=== PATIENT | male | born 1960 | race Caucasian/White ===

== ENCOUNTER 2017-12-17 16:24 | Inpatient (IN) | payer MEDICAID ==
[~2017-12-17] VITALS: Ht 185.4 cm; Wt 51.7 kg
[2017-12-17] MEDS ORDERED: IV NS 0.9% 1,000 ML BAG IV ONE (17:00)
[2017-12-17] MEDS ORDERED: LUBI24CA5 PO (17:05)
[2017-12-17] MEDS ORDERED: ASCO500T9 PO (17:05)
[2017-12-17] MEDS ORDERED: ATEN25TA PO (17:05)
[2017-12-17] MEDS ORDERED: MIRT15TA PO (17:05)
[2017-12-17] MEDS ORDERED: NA P133E RC (17:05)
[2017-12-17] MEDS ORDERED: MULT-447 PO (17:05)
[2017-12-17] MEDS ORDERED: LACT-96 PO (17:05)
[2017-12-17] MEDS ORDERED: OLAN2.5T3 PO (17:05)
[2017-12-17] MEDS ORDERED: FERR325T23 PO (17:05)
[2017-12-17] MEDS ORDERED: MAGN400O6 PO (17:05)
[2017-12-17] MEDS ORDERED: ACET-868 PO (17:05)
[2017-12-17] MEDS ORDERED: PANT40TA4 PO (17:05)
[2017-12-17] MEDS ORDERED: SENN-167 PO (17:05)
[2017-12-17] MEDS ORDERED: BISA10SU8 RC (17:05)
[2017-12-17] MEDS ORDERED: ACET-2605 PO (17:05)
[2017-12-17 17:12] LABS: CALCIUM, SERUM 10.2 mg/dL (8.5-10.1); CARBON DIOXIDE 24 mmol/L (21-32); CHLORIDE 120 mmol/L (98-107); CREATININE 1.6 mg/dL (0.6-1.3); GLUCOSE 136 mg/dL (74-106); POTASSIUM 3.4 mmol/L (3.5-5.1); SODIUM SERUM 154 mmol/L (136-145); UREA NITROGEN, BLOOD 28 mg/dL (7-18)
[2017-12-17 17:13] LABS: BASOPHILS # (AUTO) 0.1 /CMM (0.0-0.2); BASOPHILS % (AUTO) 0.5 % (0.0-2.0); EOSINOPHILS % (AUTO) 0.2 % (0.0-6.0); HEMATOCRIT 42 % (39-51); HEMOGLOBIN 13.3 g/dL (13.5-17.5); LYMPHOCYTES % (AUTO) 22.7 % (20.0-44.0); MEAN CORPUSCULAR HEMOGLOBIN 30 PG (26.0-33.0); MEAN CORPUSCULAR HGB CONC 32 g/dl (31.0-36.0); MEAN CORPUSCULAR VOLUME 93 fL (80-96); MONOCYTES # (AUTO) 0.8 /CMM (0.1-1.30); MONOCYTES % (AUTO) 4.5 % (2.0-12.0); NEUTROPHILS # (AUTO) 12.6 /CMM (1.8-8.9); NEUTROPHILS % (AUTO) 72.1 % (43.0-81.0); PLATELET COUNT (AUTO) 311 /CMM (150-450); RED BLOOD CELL COUNT(AUTO) 4.51 MIL/uL (4.5-6.0); WHITE BLOOD COUNT (AUTO) 17.5 K/uL (4.3-11.0)
[2017-12-17 17:15] LABS: INR 1.13 (0.87-1.13)
[2017-12-17 17:18] LABS: ALANINE AMINOTRANSFERASE 23 U/L (12-78); ALBUMIN 2.6 g/dL (3.4-5.0); ALKALINE PHOSPHATASE 97 U/L (46-116); ASPARTATE AMINOTRANSFERASE 31 U/L (15-37); BILIRUBIN,DIRECT 0.2 mg/dL (0.0-0.2); BILIRUBIN,TOTAL 0.5 mg/dL (0.2-1.0); TOTAL PROTEIN, SERUM 9.5 g/dL (6.4-8.2)
[2017-12-17 17:20] LABS: TROPONIN I < 0.017 ng/mL (0.00-0.056)
[2017-12-17] MEDS ORDERED: IV NS 0.9% 1,000 ML IV ONE (17:30)
[2017-12-17] MEDS ORDERED: PIPERACILLIN /TAZOBACTAM 3.375 G in IV D5W 50 ML IV ONE (17:30)
[2017-12-17] MEDS ORDERED: PIPERACILLIN /TAZOBACTAM 3.375 G VIAL IV ONE (17:37)
[2017-12-17] MEDS ORDERED: IV NS 0.9% 1,000 ML IV PRN (18:11)
[2017-12-17] MEDS ORDERED: ONDANSETRON HCL/PF 4 MG/2 ML VIAL IVP PRN (18:30)
[2017-12-17] MEDS ORDERED: BISACODYL SUPP (10 MG) 10 MG/SUPP.RECT SUPP.RECT RC PRN (18:30)
[2017-12-17] MEDS ORDERED: HYDROCODONE/APAP 5/325MG 1 EACH TABLET PO PRN (18:30)
[2017-12-17] MEDS ORDERED: MAGNESIUM HYDROXIDE 30 ML UDC PO PRN ×2 (18:30)
[2017-12-17] MEDS ORDERED: NA PHOS,M-B/NA PHOS,DI-BA 1 EA ENEMA RC PRN (18:30)
[2017-12-17] MEDS ORDERED: MISCELLANEOUS MED 1 EA EA PO PRN (18:30)
[2017-12-17] MEDS ORDERED: TEMAZEPAM 15 MG CAPSULE PO PRN (18:30)
[2017-12-17] MEDS ORDERED: MAG HYDROX/AL HYDROX/SIMETH 30 ML UDC PO PRN (18:30)
[2017-12-17] MEDS ORDERED: Z GUARD REMEDY 2 OZ OINT TP PRN (18:30)
[2017-12-17] MEDS ORDERED: ACETAMINOPHEN 325 MG TABLET PO PRN ×2 (18:30)
[2017-12-17 22:00] VITALS: BP 98/66
[2017-12-17] MEDS: MIRTAZAPINE 15 MG TABLET PO SCH (22:15)
[2017-12-17] MEDS: SENNOSIDES 8.6 MG TABLET PO SCH (22:15)
[2017-12-18] MEDS: PIPERACILLIN /TAZOBACTAM 3.375 G in IV D5W 50 ML IV SCH ×5 (00:50→23:39)
[2017-12-18 04:00] VITALS: BP 91/47
[2017-12-18 06:40] LABS: BASOPHILS % (AUTO) 0.2 % (0.0-2.0); EOSINOPHILS % (AUTO) 0.3 % (0.0-6.0); HEMATOCRIT 37 % (39-51); HEMOGLOBIN 11.7 g/dL (13.5-17.5); LYMPHOCYTES # (AUTO) 4.3 /CMM (0.8-4.8); LYMPHOCYTES % (AUTO) 25.5 % (20.0-44.0); MEAN CORPUSCULAR HEMOGLOBIN 30 PG (26.0-33.0); MEAN CORPUSCULAR HGB CONC 32 g/dl (31.0-36.0); MEAN CORPUSCULAR VOLUME 94 fL (80-96); MONOCYTES # (AUTO) 0.9 /CMM (0.1-1.30); MONOCYTES % (AUTO) 5.3 % (2.0-12.0); NEUTROPHILS # (AUTO) 11.5 /CMM (1.8-8.9); NEUTROPHILS % (AUTO) 68.7 % (43.0-81.0); PLATELET COUNT (AUTO) 198 /CMM (150-450); RDW COEFFICIENT OF VARIATION 20.2 (11.5-15.0); RED BLOOD CELL COUNT(AUTO) 3.92 MIL/uL (4.5-6.0); WHITE BLOOD COUNT (AUTO) 16.8 K/uL (4.3-11.0)
[2017-12-18 07:11] LABS: CALCIUM, SERUM 9.1 mg/dL (8.5-10.1); CREATININE 1.5 mg/dL (0.6-1.3); PHOSPHORUS 2.7 mg/dL (2.5-4.9); POTASSIUM 3.5 mmol/L (3.5-5.1)
[2017-12-18] MEDS ORDERED: PANTOPRAZOLE 40 MG TABLET.DR PO SCH (07:30)
[2017-12-18 08:00] VITALS: BP_SYST 104; BP_SYST 126; BP_DIAS 46; BP_DIAS 60
[2017-12-18] MEDS: FERROUS SULFATE (325 MG) 325 MG/TAB TABLET PO SCH (08:14)
[2017-12-18] MEDS: PANTOPRAZOLE 40 MG TABLET.DR PO SCH (08:14)
[2017-12-18] MEDS: OLANZAPINE 2.5 MG TABLET PO SCH ×2 (08:14→16:57)
[2017-12-18] MEDS: ASCORBIC ACID 500 MG TABLET PO SCH (08:14)
[2017-12-18] MEDS: MULTIVITAMINS,THERAGRAN 1 UDTAB TABLET PO SCH (08:14)
[2017-12-18] MEDS: ATENOLOL 25 MG TABLET PO SCH (09:31)
[2017-12-18] MEDS: ENSURE ENLIVE CHOC 237 ML CAN PO SCH ×2 (09:31→16:57)
[2017-12-18] MEDS: IV D5/0.45 NACL 1,000 ML IV PRN ×2 (10:05→19:52)
[2017-12-18 16:00] VITALS: BP 103/60
[2017-12-18 20:00] VITALS: BP 98/50
[2017-12-18] MEDS: SENNOSIDES 8.6 MG TABLET PO SCH (22:35)
[2017-12-18] MEDS: MIRTAZAPINE 15 MG TABLET PO SCH (22:35)
[2017-12-19 04:00] VITALS: BP 138/76
[2017-12-19] MEDS: IV D5/0.45 NACL 1,000 ML IV PRN ×2 (04:28→14:54)
[2017-12-19] MEDS: PIPERACILLIN /TAZOBACTAM 3.375 G in IV D5W 50 ML IV SCH ×3 (05:01→17:15)
[2017-12-19 08:00] VITALS: BP 91/55
[2017-12-19] MEDS: FERROUS SULFATE (325 MG) 325 MG/TAB TABLET PO SCH (08:28)
[2017-12-19] MEDS: MULTIVITAMINS,THERAGRAN 1 UDTAB TABLET PO SCH (08:28)
[2017-12-19] MEDS: ASCORBIC ACID 500 MG TABLET PO SCH (08:28)
[2017-12-19] MEDS: ATENOLOL 25 MG TABLET PO SCH (08:28)
[2017-12-19] MEDS: PANTOPRAZOLE 40 MG TABLET.DR PO SCH (08:28)
[2017-12-19] MEDS: OLANZAPINE 2.5 MG TABLET PO SCH ×2 (08:28→17:15)
[2017-12-19] MEDS: ENSURE ENLIVE CHOC 237 ML CAN PO SCH ×2 (08:29→17:16)
[2017-12-19 09:15] LABS: BASOPHILS # (AUTO) 0.1 /CMM (0.0-0.2); BASOPHILS % (AUTO) 0.4 % (0.0-2.0); EOSINOPHILS % (AUTO) 0.8 % (0.0-6.0); HEMATOCRIT 31 % (39-51); HEMOGLOBIN 9.9 g/dL (13.5-17.5); LYMPHOCYTES # (AUTO) 3.8 /CMM (0.8-4.8); LYMPHOCYTES % (AUTO) 29.5 % (20.0-44.0); MEAN CORPUSCULAR HEMOGLOBIN 30 PG (26.0-33.0); MEAN CORPUSCULAR HGB CONC 32 g/dl (31.0-36.0); MEAN CORPUSCULAR VOLUME 94 fL (80-96); NEUTROPHILS # (AUTO) 7.8 /CMM (1.8-8.9); NEUTROPHILS % (AUTO) 61.3 % (43.0-81.0); PLATELET COUNT (AUTO) 157 /CMM (150-450); RDW COEFFICIENT OF VARIATION 20.3 (11.5-15.0); RED BLOOD CELL COUNT(AUTO) 3.32 MIL/uL (4.5-6.0); WHITE BLOOD COUNT (AUTO) 12.7 K/uL (4.3-11.0)
[2017-12-19 09:26] LABS: CALCIUM, SERUM 8.2 mg/dL (8.5-10.1); CREATININE 1.5 mg/dL (0.6-1.3)
[2017-12-19] MEDS ORDERED: POTASSIUM CHLORIDE 20 MEQ POWDER PACKET PO ONE (13:30)
[2017-12-19 16:00] VITALS: BP 94/59
[2017-12-19 20:00] VITALS: BP 91/54
[2017-12-19] MEDS: SENNOSIDES 8.6 MG TABLET PO SCH (21:10)
[2017-12-19] MEDS: MIRTAZAPINE 15 MG TABLET PO SCH (21:10)
[2017-12-20] MEDS: PIPERACILLIN /TAZOBACTAM 3.375 G in IV D5W 50 ML IV SCH ×3 (00:25→13:06)
[2017-12-20] MEDS: IV D5/0.45 NACL 1,000 ML IV PRN ×2 (00:27→08:39)
[2017-12-20 04:00] VITALS: BP 92/55
[2017-12-20 06:28] LABS: BASOPHILS % (AUTO) 0.4 % (0.0-2.0); EOSINOPHILS % (AUTO) 4.8 % (0.0-6.0); HEMATOCRIT 31 % (39-51); HEMOGLOBIN 10.1 g/dL (13.5-17.5); LYMPHOCYTES # (AUTO) 2.5 /CMM (0.8-4.8); LYMPHOCYTES % (AUTO) 31.7 % (20.0-44.0); MEAN CORPUSCULAR HEMOGLOBIN 30 PG (26.0-33.0); MEAN CORPUSCULAR HGB CONC 33 g/dl (31.0-36.0); MEAN CORPUSCULAR VOLUME 93 fL (80-96); MONOCYTES # (AUTO) 0.6 /CMM (0.1-1.30); MONOCYTES % (AUTO) 7.4 % (2.0-12.0); NEUTROPHILS # (AUTO) 4.4 /CMM (1.8-8.9); NEUTROPHILS % (AUTO) 55.7 % (43.0-81.0); PLATELET COUNT (AUTO) 163 /CMM (150-450); RDW COEFFICIENT OF VARIATION 20.2 (11.5-15.0); RED BLOOD CELL COUNT(AUTO) 3.34 MIL/uL (4.5-6.0); WHITE BLOOD COUNT (AUTO) 7.9 K/uL (4.3-11.0)
[2017-12-20 06:31] LABS: CALCIUM, SERUM 8.4 mg/dL (8.5-10.1); CREATININE 1.2 mg/dL (0.6-1.3)
[2017-12-20 08:00] VITALS: BP 99/53
[2017-12-20] MEDS: ENSURE ENLIVE CHOC 237 ML CAN PO SCH ×2 (08:18→16:33)
[2017-12-20] MEDS: PANTOPRAZOLE 40 MG TABLET.DR PO SCH (08:18)
[2017-12-20 08:57] VITALS: BP 99/53
[2017-12-20] MEDS: ATENOLOL 25 MG TABLET PO SCH (08:57)
[2017-12-20] MEDS: ASCORBIC ACID 500 MG TABLET PO SCH (09:19)
[2017-12-20] MEDS: FERROUS SULFATE (325 MG) 325 MG/TAB TABLET PO SCH (09:19)
[2017-12-20] MEDS: OLANZAPINE 2.5 MG TABLET PO SCH ×2 (09:19→16:33)
[2017-12-20] MEDS: MULTIVITAMINS,THERAGRAN 1 UDTAB TABLET PO SCH (09:19)
[2017-12-20] MEDS ORDERED: POTASSIUM CHLORIDE 20 MEQ TAB.PRT.SR PO SCH (10:00)
[2017-12-20] MEDS: POTASSIUM CHLORIDE 20 MEQ POWDER PACKET PO SCH ×2 (11:02→12:27)
[2017-12-20] MEDS ORDERED: POTASSIUM CHLORIDE 20 MEQ POWDER PACKET PO SCH (14:00)
[2017-12-20] MEDS ORDERED: Potassium Chloride 40 MEQ in IV D5/0.45 NACL 1,000 ML IV PRN (17:00)
== END 2017-12-20 17:28 | DRG 137 ==
LOC: ER 16:31 → MEDSG1 19:26
PROVIDERS: ADMIT Nurse Practitioner Acute Care; ATTEND Nurse Practitioner Acute Care
DX: J15.6 Pneumonia due to other Gram-negative bacteria (principal); N17.0 Acute kidney failure with tubular necrosis; E43 Unspecified severe protein-calorie malnutrition; G93.41 Metabolic encephalopathy; R64 Cachexia; E87.0 Hyperosmolality and hypernatremia; E86.0 Dehydration; E86.1 Hypovolemia; J15.9 Unspecified bacterial pneumonia; I12.9 Hypertensive chronic kidney disease with stage 1 through stage 4 chronic kidney disease, or unspecified chronic kidney disease; N18.9 Chronic kidney disease, unspecified; E87.6 Hypokalemia; F20.0 Paranoid schizophrenia; F32.9 Major depressive disorder, single episode, unspecified; K58.9 Irritable bowel syndrome, unspecified; D64.9 Anemia, unspecified; Z87.01 Personal history of pneumonia (recurrent); Z68.1 Body mass index [BMI] 19.9 or less, adult; D72.829 Elevated white blood cell count, unspecified; F41.9 Anxiety disorder, unspecified; F29 Unspecified psychosis not due to a substance or known physiological condition; M62.50 Muscle wasting and atrophy, not elsewhere classified, unspecified site; J40 Bronchitis, not specified as acute or chronic; R63.6 Underweight
CPT/HCPCS: 36415; 71045-TC; 80048-TC; 80061-TC; 80076-TC; 83605-TC; 83735-TC; 84100-TC; 84484-TC; 85025-TC; 85730-TC; 87040-TC; 87081-TC; A4606; J2543; J3480; J3490; J7030; J7060; Z7610

== ENCOUNTER 2017-12-29 19:54 | Inpatient (IN) | payer MEDICAID ==
[2017-12-28 01:00] VITALS: BP 87/56
[~2017-12-29] VITALS: Ht 175.3 cm; Wt 50.8 kg
[~2017-12-29 19:54] MED LIST: ACET-2605 PO; ACET-868 PO; ASCO500T9 PO; ATEN25TA PO; BISA10SU8 RC; FERR325T23 PO; LACT-96 PO; LUBI24CA5 PO; MAGN400O6 PO; MIRT15TA PO; MULT-447 PO; NA P133E RC; OLAN2.5T3 PO; PANT40TA4 PO; SENN-167 PO
--- NOTE | 2017-12-29 19:54 | NUR ---
"D/C 2 DAYS FROM HERE; NOT EATING". NAD NOTED. PT AAO X2, VSS. RR EVEN AND UNLABORED. PENDING MD TYLER.
--- NOTE | 2017-12-29 21:08 | NUR ---
URINE OBTAINED CALLED LAB FOR PICKUP
[2017-12-29 21:16] LABS: BASOPHILS # (AUTO) 0.7 /CMM (0.0-0.2); BASOPHILS % (AUTO) 4.4 % (0.0-2.0); EOSINOPHILS % (AUTO) 1.7 % (0.0-6.0); HEMATOCRIT 38 % (39-51); HEMOGLOBIN 12.9 g/dL (13.5-17.5); LYMPHOCYTES # (AUTO) 4.3 /CMM (0.8-4.8); LYMPHOCYTES % (AUTO) 26.3 % (20.0-44.0); MEAN CORPUSCULAR HEMOGLOBIN 31 PG (26.0-33.0); MEAN CORPUSCULAR HGB CONC 34 g/dl (31.0-36.0); MEAN CORPUSCULAR VOLUME 90 fL (80-96); MONOCYTES # (AUTO) 0.5 /CMM (0.1-1.30); MONOCYTES % (AUTO) 3.3 % (2.0-12.0); NEUTROPHILS # (AUTO) 10.6 /CMM (1.8-8.9); NEUTROPHILS % (AUTO) 64.3 % (43.0-81.0); PLATELET COUNT (AUTO) 527 /CMM (150-450); RDW COEFFICIENT OF VARIATION 19.4 (11.5-15.0); RED BLOOD CELL COUNT(AUTO) 4.21 MIL/uL (4.5-6.0); WHITE BLOOD COUNT (AUTO) 16.4 K/uL (4.3-11.0)
[2017-12-29 21:17] LABS: APPEARANCE,URINE Slightly Cloudy (CLEAR); BILIRUBIN,URINE Negative (NEGATIVE); BLOOD, URINE Moderate Ery/uL (NEGATIVE); COLOR,URINE Yellow (YELLOW); KETONES,URINE Negative (NEGATIVE); LEUKOCYTE ESTERASE ,URINE Large (NEGATIVE); NITRITE, URINE Negative (NEGATIVE); PROTEIN,URINE 100 mg/dl (NEGATIVE); UGLUCOSE Negative (NEGATIVE); UROBILINOGEN,URINE 0.2 EU/dL (0.2)
[2017-12-29 21:39] LABS: ALBUMIN 2.8 g/dL (3.4-5.0); BILIRUBIN,DIRECT 0.1 mg/dL (0.0-0.2); BILIRUBIN,TOTAL 0.3 mg/dL (0.2-1.0); CALCIUM, SERUM 9.9 mg/dL (8.5-10.1); CREATININE 1.1 mg/dL (0.6-1.3); POTASSIUM 3.5 mmol/L (3.5-5.1); TOTAL PROTEIN, SERUM 9.5 g/dL (6.4-8.2)
[2017-12-29 21:54] LABS: BACTERIA,URINE Many /HPF (None Seen); RBC,URINE 21-50 /HPF (0-2); SQUAMOUS EPITHELIAL CELL,UR Few /HPF (None Seen); URINE AMORPHOUS URATE Few /HPF (None Seen); WBC,URINE TOO NUMEROUS TO COUN /HPF (0-3)
[2017-12-29] MEDS ORDERED: IV NS 0.9% 1,000 ML BAG IV ONE (22:30)
[2017-12-29] MEDS ORDERED: CEFTRIAXONE 1GM BAG (ER ONLY) 50 ML IV ONE (22:30)
[2017-12-30] MEDS ORDERED: IV NS 0.9% 1,000 ML BAG IV ONE
[2017-12-30] MEDS ORDERED: MAG HYDROX/AL HYDROX/SIMETH 30 ML UDC PO PRN (00:30)
[2017-12-30] MEDS ORDERED: HYDROCODONE/APAP 5/325MG 1 EACH TABLET PO PRN (00:30)
[2017-12-30] MEDS ORDERED: ZOLPIDEM TARTRATE 5 MG TABLET PO PRN (00:30)
[2017-12-30] MEDS ORDERED: ONDANSETRON HCL/PF 4 MG/2 ML VIAL IVP PRN (00:30)
[2017-12-30] MEDS ORDERED: MAGNESIUM HYDROXIDE 30 ML UDC PO PRN (00:30)
[2017-12-30] MEDS ORDERED: Z GUARD REMEDY 2 OZ OINT TP PRN (00:30)
[2017-12-30] MEDS ORDERED: ACETAMINOPHEN 325 MG TABLET PO PRN (00:30)
--- NOTE | 2017-12-30 00:40 | NUR ---
REPORT GIVEN TO ENRICO LUA FOR AMEYA
--- NOTE | 2017-12-30 01:28 | NUR ---
TELE TRANSVERSE ABDOMINAL MUSCLE SURGEON INITIAL NOTES ADMIT PT FROM ER VIA JOSERBRANT ACCOMPANIED BY SAMPLE PASTER AND HIS NURSE. PT STILL NS BOLUS INFUSING AT THIS TIME. PT IS ALERT ORIENTED NO SIGNS OF ANY DISCOMFORT OR ANY ACUTE DISTRESS NOTED. SKIN WARM AND DRY TO TOUCH. VITAL SIGNS FF. BP 87/56, RESP 16, PULSE 102 O2 SAT 96% AND TEMP 98.1. RE-ORIENTED PT IN HIS ROOM AND HOW TO USED THE CALL LIGHT SYSTEM AND PT UNDERSTOOD WELL. TELE SINUS RHYTHM HEART RATE 85 PER MONITOR.KEPT HIM WARM AND COMFORTABLE AT ALL TIMES. PLACE CALL LIGHT AT REACH. WILL CONTINUE MONITORING.
[2017-12-30] MEDS: IV D5/ 0.9% NACL 1,000 ML IV PRN ×2 (02:41→18:42)
[2017-12-30] MEDS ORDERED: VANCOMYCIN 1 GM VIAL ONE (02:45)
[2017-12-30] MEDS ORDERED: ENOXAPARIN SODIUM 40 MG/0.4 ML DISP.SYRIN SQ ONE ×2 (02:45→04:00)
[2017-12-30] MEDS ORDERED: PIPERACILLIN /TAZOBACTAM 2.25 G VIAL IV ONE (02:45)
[2017-12-30 04:00] VITALS: BP 86/54
[2017-12-30] MEDS ORDERED: VANCOMYCIN 1 GM in IV D5W 250 ML IV ONE (04:00)
[2017-12-30 05:00] VITALS: BP 90/60
[2017-12-30] MEDS: PIPERACILLIN /TAZOBACTAM 4.5 G in IV NS 0.9% 50 ML IV SCH ×3 (05:16→17:07)
[2017-12-30] MEDS ORDERED: FEE PK DOSING 1 MIN EA MC ONE (07:55)
[2017-12-30 08:00] VITALS: BP 97/56
--- NOTE | 2017-12-30 08:00 | NUR ---
MS RN AM NOTES PT ALERT AND CONFUSED. STILL WITH IVF D5NS AT 100ML/HR INFUSING WELL. BREATHING EVEN AND NON-LABORED ON ROOM AIR. NOT IN ANY ACUTE DISTRESS NOTED. KEPT HIM WARM AND COMFORTABLE AT ALL TIMES. ALL DUE MEDS GIVEN AND NEEDS ATTENDED.ATTEMPTED ORAL CARE BUT PT REFUSED.Z-GUARD APPLIED TO AFFECTED AREA.
--- NOTE | 2017-12-30 08:03 | NUR ---
MS CLINICAL SAFETY SPECIALIST CLOSING NOTES PT RESTING AT THIS TIME, STILL WITH IVF D5NS AT 100ML/HR. BREATHING EVEN AND NON-LABORED. NOT IN ANY ACUTE DISTRESS NOTED. KEPT HIM WARM AND COMFORTABLE AT ALL TIMES. ALL DUE MEDS GIVEN AND ALL NEEDS MET. STABLE SINCE ADMISSION. REFUSED TO CLEANED HIS MOUTH BUT SPONGES BATH RENDERED AND Z-GUARD APPLIED TO AFFECTED AREA. ENDORSE TO AM NURSE FOR CONTINUITY OF CARE.
[2017-12-30] MEDS: OLANZAPINE 2.5 MG TABLET PO SCH ×2 (09:26→16:56)
--- NOTE | 2017-12-30 12:55 | NUR ---
CALLED [facility] FOR DELIVERY OF THE ENSURE NOURISHMENT.
[2017-12-30] MEDS: ENSURE ENLIVE CHOC 237 ML CAN PO SCH ×3 (13:19→22:01)
[2017-12-30] MEDS: VANCOMYCIN 0.75 GM in IV D5W 250 ML IV SCH (15:01)
--- NOTE | 2017-12-30 15:30 | NUR ---
PT CONSUMED 237 ML OF CHOCOLATE ENSURE/BOOST.
[2017-12-30 16:00] VITALS: BP 99/61
--- NOTE | 2017-12-30 17:16 | NUR ---
PT CONSUMED 150 ML OF HIS ENSURE HARPREET NOURISHMENT.
--- NOTE | 2017-12-30 18:03 | NUR ---
Patient is a resident of [facility] [phone]. He is alert,require min-mod assist with adl's. Has no family or conservator, Reports with failure to thrive and lost 20lbs in 4 weeks and has not been eating. He might need PEG placement and will need 2 MD consent for consent. Addendum: 12/30/17 at 1804 by NIRAV GALLOWAY RN Amended: Links added.
--- NOTE | 2017-12-30 19:30 | NUR ---
MS/RN RECEIVE PATIENT AWAKE, ALERT, ORIENTED X 2 COMFORTABLE, NO C/O PAIN, NO DISTRESS NOTED, IVF INFUSING WELL, CALL LIGHT IN REACH. FALL PRECAUTIE Addendum: 12/30/17 at 1951 by KB LUCERO RN FALL PRECAUTION PER PROTOCOL, WILL MONITOR.
[2017-12-30 20:00] VITALS: BP 96/53
[2017-12-30] MEDS: ENOXAPARIN SODIUM 40 MG/0.4 ML DISP.SYRIN SQ SCH (21:52)
[2017-12-30] MEDS: MIRTAZAPINE 15 MG TABLET PO SCH (21:52)
--- NOTE | 2017-12-30 22:08 | NUR ---
MS/RN LACTIC ACID LAST NIGHT WAS 3.0 AT 2100, REPEAT LACTIC ACID AT 2300 WAS 4.4, NO F/U LACTIC ACID DONE, PATIENT IS CURRENTLY ON IV FLUID NS AT 100 MLS/HR, AND ON VANCOMYCIN AND ZOSYN, DR. ELISHA MANDEL MADE AWARE, PER DR. TELLO "IT'S OK". NO ORDERS RECEIVED.
[2017-12-31] MEDS: PIPERACILLIN /TAZOBACTAM 4.5 G in IV NS 0.9% 50 ML IV SCH ×5 (00:14→23:48)
[2017-12-31] MEDS: VANCOMYCIN 0.75 GM in IV D5W 250 ML IV SCH (03:34)
[2017-12-31] MEDS: IV D5/ 0.9% NACL 1,000 ML IV PRN ×4 (03:40→20:55)
[2017-12-31 07:11] LABS: BASOPHILS # (AUTO) 0.1 /CMM (0.0-0.2); BASOPHILS % (AUTO) 1.3 % (0.0-2.0); EOSINOPHILS % (AUTO) 5.4 % (0.0-6.0); HEMATOCRIT 32 % (39-51); HEMOGLOBIN 10.3 g/dL (13.5-17.5); LYMPHOCYTES # (AUTO) 3.9 /CMM (0.8-4.8); LYMPHOCYTES % (AUTO) 39.6 % (20.0-44.0); MEAN CORPUSCULAR HEMOGLOBIN 31 PG (26.0-33.0); MEAN CORPUSCULAR HGB CONC 33 g/dl (31.0-36.0); MEAN CORPUSCULAR VOLUME 94 fL (80-96); MONOCYTES # (AUTO) 0.7 /CMM (0.1-1.30); MONOCYTES % (AUTO) 6.8 % (2.0-12.0); NEUTROPHILS # (AUTO) 4.7 /CMM (1.8-8.9); NEUTROPHILS % (AUTO) 46.9 % (43.0-81.0); PLATELET COUNT (AUTO) 342 /CMM (150-450); RED BLOOD CELL COUNT(AUTO) 3.38 MIL/uL (4.5-6.0); WHITE BLOOD COUNT (AUTO) 9.9 K/uL (4.3-11.0)
[2017-12-31 07:27] LABS: CALCIUM, SERUM 8.4 mg/dL (8.5-10.1); CREATININE 0.9 mg/dL (0.6-1.3); PHOSPHORUS 1.6 mg/dL (2.5-4.9); POTASSIUM 3.4 mmol/L (3.5-5.1)
[2017-12-31 07:37] LABS: THYROID STIMULATING HORMONE 4.763 uIU/mL (0.358-3.74)
--- NOTE | 2017-12-31 07:37 | NUR ---
MS/RN PATIENT AWAKE AT THIS TIME, COMFORTABLE, NO DISTRESS NOTED, ALL NEEDS ATTENDED AT THIS TIME, IVF INFUSING, ENDORSED TO NEXT RN FOR CONTINUITY OF CARE.
--- NOTE | 2017-12-31 07:44 | NUR ---
MS RN NOTES PATIENT RECEIVED RESTING INSIDE ROOM. SLEEPING, AROUSABLE THROUGH VERBAL AND TACTILE STIMULI. PATIENT ALERT, ORIENTED X 2. BREATHING EVEN AND UNLABORED. NO SOB OR ACUTE DISTRESS NOTED AT THIS TIME. DENIES ANY PAIN OR DISCOMFORT. NO CHANGES IN LOC NOTED AT THIS TIME. IV SITE INTACT AND PATENT. NO SWELLING OR BLEEDING NOTED ON SITE. WILL CONTINUE TO MONITOR. BED LOCKED AND IN LOW POSITION. BILATERAL UPPER SIDE RAILS UP AND LOCKED. CALL LIGHT WITHIN EASY REACH
[2017-12-31] MEDS: OLANZAPINE 2.5 MG TABLET PO SCH ×2 (08:25→17:11)
[2017-12-31] MEDS: ENSURE ENLIVE CHOC 237 ML CAN PO SCH ×4 (08:25→22:16)
[2017-12-31 08:54] VITALS: BP 106/59
--- NOTE | 2017-12-31 09:30 | NUR ---
MS RN NOTES RECEIVED CALL FROM DR. YARBROUGH (GI) REGARDING PATIENT FOR EGD WITH PEG PLACEMENT. DR. YARBROUGH AWARE THAT PATIENT DOES NOT HAVE CONSERVATOR AND REQUIRES 2 PCP SIGNATURES FOR PROCEDURE CONSENT. WILL CONTINUE TO MONITOR
--- NOTE | 2017-12-31 09:49 | NUR ---
WOUND CARE CONSULT: PT PRESENTS WITH CACHEXIA, SCARS TO LEFT LEG AND BILATERAL HIPS, AND RASH TO PERINEUM, GROIN AREAS AND PERIANAL AREA/BUTTOCKS, PRESENT ON ADMISSION. RECOMMENDATIONS MADE FOR SKIN PROTECTION. DISCUSSED WITH NURSING STAFF. PT ABLE TO ASSIST WITH TURNING AND REPOSITIONING. WILL SEE PRN. FRANK IN AGREEMENT WITH PLAN OF CARE. Addendum: 12/31/17 at 0940 by KAREEM STEPHENS WNDNU Amended: Links added.
--- NOTE | 2017-12-31 10:15 | NUR ---
MS RN NOTES BENNY TOBAR NP PRESENT AT UNIT. MADE AWARE REGARDING PROCEDURE FOR EGD WITH PEG PLACEMENT. PER BENNY TOBAR, TO FOLLOW-UP WITH DR. SONG REGARDING CONSULTATION NOTES FOR PROCEDURE. DR. SONG PRESENT AT UNIT AND MADE AWARE. VERBALIZED THAT HE WILL COME AND SEE PATIENT TODAY. WILL CONTINUE TO MONITOR
[2017-12-31] MEDS ORDERED: K PHOS NEUTRAL 250 MG TABLET PO ONE (11:30)
[2017-12-31] MEDS ORDERED: POTASSIUM CHLORIDE 20 MEQ TAB.PRT.SR PO SCH (12:30)
--- NOTE | 2017-12-31 15:30 | NUR ---
MS RN NOTES G.I. BOOM CONVEYOR OPERATOR PRESENT AT UNIT. DISCUSSED CASE REGARDING EGD WITH PEG PLACEMENT. INFORMED THAT DR. SONG IS AWARE AND WILL SEE PATIENT. PER Ash. BOOM CONVEYOR OPERATOR, MAY RESUME FEEDING AT THIS TIME. POSSIBLE EGD SCHEDULE IN AM.
[2017-12-31 16:00] VITALS: BP 95/55
[2017-12-31] MEDS: CLOTRIMAZOLE 1% 15 GM TUBE TP SCH (17:10)
[2017-12-31 18:30] LABS: PREALBUMIN 10.4 MG/DL (18.0-35.7)
--- NOTE | 2017-12-31 18:56 | NUR ---
MS RN NOTES PATIENT RESTING INSIDE ROOM. AWAKE, ALERT AND ORIENTED X 2. VERBALLY RESPONSIVE AND RESPONDS TO VERBAL AND TACTILE STIMULI. BREATHING EVEN AND UNLABORED. NO SOB OR ACUTE DISTRESS NOTED AT THIS TIME. PATIENT AFEBRILE, SKIN DRY AND WARM TO TOUCH. NO CHANGES IN LOC NOTED AT THIS TIME. IV SITE INTACT AND PATENT. NO SWELLING OR BLEEDING NOTED AT THIS TIME. WILL ENDORSE TO INCOMING SHIFT FOR AMEYA. BED LOCKED AND IN LOW POSITION. BILATERAL UPPER SIDE RAILS UP AND LOCKED. CALL LIGHT WITHIN EASY REACH
--- NOTE | 2017-12-31 19:30 | NUR ---
MS/RN RECEIVE PATIENT AWAKE, BUT SLEEPY, COMFORTABLE, NO C//O PAIN, NO DISTRESS NOTED, CALL LIGHT IN REACH. FALL PRECAUTION, WILL MONITOR.
[2017-12-31 19:54] LABS: BILIRUBIN,DIRECT 0.1 mg/dL (0.0-0.2); BILIRUBIN,TOTAL 0.3 mg/dL (0.2-1.0)
[2017-12-31 20:00] VITALS: BP 98/63
[2017-12-31] MEDS: ENOXAPARIN SODIUM 40 MG/0.4 ML DISP.SYRIN SQ SCH (21:00)
[2017-12-31] MEDS: MIRTAZAPINE 15 MG TABLET PO SCH (22:15)
--- NOTE | 2017-12-31 22:24 | NUR ---
MS/RN GENESISNOX NOT GIVEN FOR POSSIBLE, EGD/PEG PLACEMENT IN A.M.
--- NOTE | 2017-12-31 23:16 | NUR ---
MS/RN PATIENT IS SLEEPING AT THIS TIME, EASILY AROUSABLE, APPEAR COMFORTABLE, NO SIGNS OF DISTRESS NOTED, CALL LIGHT IN REACH. WILL CONTINUE TO MONITOR.
--- NOTE | 2017-12-31 23:54 | NUR ---
MS/RN SCANNER DOES NOT SCAN ZOSYN, VERIFIED CORRECT MED WITH PETTY HERNANDEZ RN, ADMINISTERED MED USING PHARMACY NO.
[2018-01-01] MEDS: PIPERACILLIN /TAZOBACTAM 4.5 G in IV NS 0.9% 50 ML IV SCH ×3 (05:52→17:01)
[2018-01-01] MEDS: IV D5/ 0.9% NACL 1,000 ML IV PRN ×2 (05:52→21:27)
--- NOTE | 2018-01-01 06:21 | NUR ---
MS/RN PATIENT IS AWAKE, COMFORTABLE, NO C/O PAIN, NO DISTRESS NOTED, MORNING CARE HAS BEEN DONE. ALL NEEDS ATTENDED AT THIS TIME, WILL CONTINUE TO MONITOR.
--- NOTE | 2018-01-01 07:41 | NUR ---
MS RN NOTES PATIENT RESTING INSIDE ROOM. AWAKE, ALERT AND ORIENTED X 2. VERBALLY RESPONSIVE AND RESPONDS TO VERBAL AND TACTILE STIMULI. BREATHING EVEN AND UNLABORED. NO SOB OR ACUTE DISTRESS NOTED AT THIS TIME. NO CHANGES IN LOC NOTED AT THIS TIME. PATIENT CALM AND RELAXED. PATIENT AFEBRILE, SKIN DRY AND WARM TO TOUCH. IV SITE INTACT AND PATENT, NO SWELLING OR BLEEDING NOTED ON SITE. WILL CONTINUE TO MONITOR. BED LOCKED AND IN LOW POSITION. BILATERAL UPPER SIDE RAILS UP AND LOCKED. CALL LIGHT WITHIN EASY REACH
[2018-01-01 08:00] VITALS: BP 100/63
[2018-01-01] MEDS: CLOTRIMAZOLE 1% 15 GM TUBE TP SCH ×2 (08:33→17:00)
[2018-01-01] MEDS: OLANZAPINE 2.5 MG TABLET PO SCH ×2 (09:00→17:00)
[2018-01-01] MEDS: ENSURE ENLIVE CHOC 237 ML CAN PO SCH ×4 (09:00→20:29)
--- NOTE | 2018-01-01 13:49 | NUR ---
MS RN NOTES PATIENT WITH NEW ORDER FROM DR. WELSH TO ASK MICROBIOLOGY TO REPORT URINE SENSITIVITIES LINDA. PLACED CALL TO LABORATORY AND SPOKE WITH VIVI AND RELAYED MD ORDER. WILL CONTINUE TO MONITOR
--- NOTE | 2018-01-01 14:00 | NUR ---
MS RN NOTES CLIFF MACHUCA ADMISSIONS MANAGER RN PRESENT AT UNIT. MADE AWARE OF PROCEDURE CONSENT SIGNED BY DR. SONG AND BENNY TOBAR NP. PER SVEN. KEEP PATIENT NPO AND SHE WILL FOLLOW-UP WITH DR. YARBROUGH REGARDING EGD WITH PEG PLACEMENT. PATIENT MADE AWARE AND VERBALIZED UNDERSTANDING. WILL CONTINUE TO MONITOR
[2018-01-01 16:00] VITALS: BP 100/64
--- NOTE | 2018-01-01 16:10 | NUR ---
MS RN NOTES RECEIVED CALL FROM LABORATORY REGARDING CULTURE AND SENSITIVITY RESULTS FOR UA. PLACED CALL TO OFFICE OF DR. WELSH AND SPOKE WITH TAMERA NIEVES MESSAGE FOR DR. WELSH REGARDING URINE C&S RESULTS. WILL CONTINUE TO MONITOR
--- NOTE | 2018-01-01 18:15 | NUR ---
MS RN NOTES PLACED CALL TO DIANNE MACHUCA (GI) TO FOLLOW-UP REGARDING EGD WITH PEG PLACEMENT. PER SVEN, MAY RESUME MEALS AT THIS TIME EGD WILL NO LONGER BE SCHEDULED TODAY. WILL FOLLOW-UP WITH DR. YARBROUGH REGARDING PROCEDURE SCHEDULE. PATIENT MADE AWARE AND VERBALIZED UNDERSTANDING. WILL CONTINUE TO MONITOR
--- NOTE | 2018-01-01 18:20 | NUR ---
MS RN NOTES RECEIVED CALL FROM NURSING DASHBOARD DEVELOPER THAT DR. YARBROUGH PLACED PROCEDURE SCHEDULE FOR Wednesday01/03/18 AT 0800. PATIENT MADE AWARE AND VERBALIZED UNDERSTANDING. WILL CONTINUE TO MONITOR
--- NOTE | 2018-01-01 18:32 | NUR ---
MS RN NOTES PATIENT RESTING INSIDE ROOM. AWAKE, ALERT AND ORIENTED X 2. VERBALLY RESPONSIVE AND RESPONDS TO VERBAL AND TACTILE STIMULI. BREATHING EVEN AND UNLABORED. NO SOB OR ACUTE DISTRESS NOTED AT THIS TIME. PATIENT AFEBRILE, SKIN DRY AND WARM TO TOUCH. NO CHANGES IN LOC NOTED AT THIS TIME. IV SITE INTACT AND PATENT, NO SWELLING OR BLEEDING NOTED ON SITE. WILL ENDORSE TO INCOMING SHIFT FOR AMEYA. BED LOCKED AND IN LOW POSITION. BILATERAL UPPER SIDE RAILS UP AND LOCKED. CALL LIGHT WITHIN EASY REACH
--- NOTE | 2018-01-01 19:30 | NUR ---
RN INITIAL NOTES: Received patient on bed, asleep, easily arousable. Breathing even and unlabored. No SOB or no acute distress noted. Peripheral IV on RAC g#20 infusing D5NS @ 100mL/hr. Call lee within reach. Bed in low locked position. Patient stable as endorsed by the morning shift RN.
[2018-01-01 20:00] VITALS: BP 87/43
--- NOTE | 2018-01-01 20:45 | NUR ---
RN NOTES: Patient encouraged to take ensure. Patient able to tolerate it, no coughing, strong gag reflex
[2018-01-01] MEDS: ENOXAPARIN SODIUM 40 MG/0.4 ML DISP.SYRIN SQ SCH (20:46)
[2018-01-01] MEDS: MIRTAZAPINE 15 MG TABLET PO SCH (21:52)
[2018-01-02] MEDS: PIPERACILLIN /TAZOBACTAM 4.5 G in IV NS 0.9% 50 ML IV SCH ×3 (00:06→12:34)
[2018-01-02 04:30] VITALS: BP 93/49
--- NOTE | 2018-01-02 06:54 | NUR ---
MS RN CLOSING NOTES PATIENT LAYING IN BED, AWAKE, ALERT AND ORIENTED X 1-2. VERBALLY RESPONSIVE AND RESPONDS TO VERBAL AND TACTILE STIMULI. BREATHING EVEN AND UNLABORED. NO SOB OR ACUTE DISTRESS NOTED AT THIS TIME. IV SITE INTACT AND PATENT, NO SWELLING OR BLEEDING NOTED ON SITE. BED LOCKED AND IN LOW POSITION. BILATERAL UPPER SIDE RAILS UP AND LOCKED. CALL LIGHT WITHIN EASY REACH. ALL NEEDS ATTENDED TO. ALL DUE MEDICATIONS GIVEN ORDERED. WILL ENDORSE TO INCOMING SHIFT FOR AMEYA.
--- NOTE | 2018-01-02 07:55 | NUR ---
MS RN OPENING NOTES RECEIVED PT FROM NIGHTSHIFT NURSE IN STABLE CONDITION. PT IS A/O X2. NO SOB OR SIGNS OF DISTRESS NOTED. BREATHING IS EVEN AND UNLABORED. PT SATING WELL ON RA. IVS NOTED TO BE PATENT AND INTACT. NO REDNESS OR SIGNS OF INFILTRATION NOTED. PT TOLERATA IV INFUSION WELL. BED IN LOW LOCKED POSITION, SIDE RAILS UP X2, CALL LIGHT WITHIN REACH, BED ALARM ON. WILL CONTINUE TO MONITOR
[2018-01-02 07:59] LABS: BASOPHILS # (AUTO) 0.1 /CMM (0.0-0.2); BASOPHILS % (AUTO) 0.8 % (0.0-2.0); EOSINOPHILS % (AUTO) 6.8 % (0.0-6.0); HEMATOCRIT 29 % (39-51); HEMOGLOBIN 9.4 g/dL (13.5-17.5); LYMPHOCYTES # (AUTO) 4.4 /CMM (0.8-4.8); LYMPHOCYTES % (AUTO) 52.8 % (20.0-44.0); MEAN CORPUSCULAR HEMOGLOBIN 31 PG (26.0-33.0); MEAN CORPUSCULAR HGB CONC 33 g/dl (31.0-36.0); MEAN CORPUSCULAR VOLUME 93 fL (80-96); MONOCYTES # (AUTO) 0.6 /CMM (0.1-1.30); MONOCYTES % (AUTO) 7.2 % (2.0-12.0); NEUTROPHILS # (AUTO) 2.7 /CMM (1.8-8.9); NEUTROPHILS % (AUTO) 32.4 % (43.0-81.0); PLATELET COUNT (AUTO) 419 /CMM (150-450); RDW COEFFICIENT OF VARIATION 19.4 (11.5-15.0); RED BLOOD CELL COUNT(AUTO) 3.09 MIL/uL (4.5-6.0); WHITE BLOOD COUNT (AUTO) 8.3 K/uL (4.3-11.0)
[2018-01-02 08:01] LABS: CALCIUM, SERUM 8.3 mg/dL (8.5-10.1); CREATININE 0.9 mg/dL (0.6-1.3); POTASSIUM 3.1 mmol/L (3.5-5.1)
[2018-01-02] MEDS: OLANZAPINE 2.5 MG TABLET PO SCH ×2 (08:41→16:06)
[2018-01-02] MEDS: CLOTRIMAZOLE 1% 15 GM TUBE TP SCH ×2 (08:42→16:08)
[2018-01-02] MEDS: ENSURE ENLIVE CHOC 237 ML CAN PO SCH ×4 (08:45→20:56)
[2018-01-02 09:25] VITALS: BP 95/54
[2018-01-02] MEDS: POTASSIUM CHLORIDE 20 MEQ POWDER PACKET NG SCH ×2 (11:18→11:19)
[2018-01-02] MEDS: IV D5/ 0.9% NACL 1,000 ML IV PRN ×2 (12:22→22:55)
--- NOTE | 2018-01-02 12:35 | NUR ---
MS RN NOTES: ZOSYN ADMINISTRATION BARCODE ON MEDICATION LABEL IS NOT SCANNING. PHARMACIST MADE AWARE AND STATES THAT THE BARCODES ARE NOT WORKING FOR ANY IV PIGGYBACKS. MEDICATION MANUALLY ADMINISTERED. SAFETY CHECKS COMPLETED PRIOR TO HANGING BAG
[2018-01-02] MEDS: NITROFURANTOIN/NITROFURAN MAC 100 MG CAPSULE PO SCH ×2 (14:42→22:15)
[2018-01-02] MEDS ORDERED: MEROPENEM 1 G in IV NS 0.9% 100 ML IV SCH (15:00)
[2018-01-02 16:15] VITALS: BP 115/59
--- NOTE | 2018-01-02 18:55 | NUR ---
MS RN CLOSING NOTES PT REMAINS STABLE ALL NEEDS MET DURING SHIFT AND ORDERS CARRIED OUT ACCORDINGLY. ALL DUE MEDS GIVEN. WOUND AND SKIN CARE RENDERED. PT REPOSITIONED AND TURNED PER HOSPITAL PROTOCOL. IV REMAINS PATENT AND INTACT. SAFETY MEASURES REMAIN IN PLACE. WILL ENDORSE TO NIGHTSHIFT NURSE FOR AMEYA
[2018-01-02 20:06] VITALS: BP 115/69
[2018-01-02 20:16] VITALS: BP 115/69
[2018-01-02] MEDS: ENOXAPARIN SODIUM 40 MG/0.4 ML DISP.SYRIN SQ SCH (20:56)
--- NOTE | 2018-01-02 20:57 | NUR ---
RN NOTES: Pt has procedure tomorrow. To hold Lovenox as per Dr. Harvey.
[2018-01-02] MEDS: MIRTAZAPINE 15 MG TABLET PO SCH (22:07)
--- NOTE | 2018-01-03 06:21 | NUR ---
RN CLOSING NOTES: Patient sleeping in bed, easily arousable. Alert, oriented x 2. Not in any distress. Breathing even and unlabored. Denied any pain. Peripheral IV of D5NS infusing at 100mL/Hr. IV site on RAC and L hand g#20 intact and patent. Moved bowels x 2. Cleaned and changed. All other needs attended to. All due medications given as ordered. Patient for procedure this morning. NPO since midnight. SAfety measures in place. Call lee within reach. Bed in low, locked position. Will endorse AMEYA to morning shift RN
--- NOTE | 2018-01-03 07:30 | NUR ---
MSRN OPENING NOTES. PT NPO FOR EDG THIS AM. PT RECEIVED A&0X1, CONVERSATIONAL AND ABLE TO MAKE NEEDS KNOWN. PT TOLERATING ROOM AIR WITHOUT DISTRESS. PT DENIES PAIN. PT WITH IVCX2, IVC AT RAC INTACT AND SALINE FLUSH PATENT, IVC AT L HAND G#20 WITH IVF PER RX. PT BED IN LOWEST LOCKED POSITION WITH HANDRAILSX2 AND CALL SPEARS WITHIN REACH AND BED ALARM ON. PT BRIEFED ON TODAY'S POC AND IS WITHOUT CONCERN OR COMPLAINT AT THIS TIME, WILL REORIENTATE WHEN/IF NECESSARY.
[2018-01-03 08:00] VITALS: BP 102/57
[2018-01-03 08:00] LABS: BASOPHILS # (AUTO) 0.1 /CMM (0.0-0.2); EOSINOPHILS % (AUTO) 4.8 % (0.0-6.0); HEMATOCRIT 29 % (39-51); HEMOGLOBIN 9.3 g/dL (13.5-17.5); LYMPHOCYTES # (AUTO) 4.9 /CMM (0.8-4.8); MEAN CORPUSCULAR HEMOGLOBIN 30 PG (26.0-33.0); MEAN CORPUSCULAR HGB CONC 32 g/dl (31.0-36.0); MEAN CORPUSCULAR VOLUME 94 fL (80-96); MONOCYTES # (AUTO) 0.6 /CMM (0.1-1.30); MONOCYTES % (AUTO) 6.6 % (2.0-12.0); NEUTROPHILS # (AUTO) 2.9 /CMM (1.8-8.9); NEUTROPHILS % (AUTO) 32.6 % (43.0-81.0); PLATELET COUNT (AUTO) 371 /CMM (150-450); RDW COEFFICIENT OF VARIATION 19.7 (11.5-15.0)
[2018-01-03 08:18] LABS: CALCIUM, SERUM 8.5 mg/dL (8.5-10.1); CREATININE 0.7 mg/dL (0.6-1.3); POTASSIUM 3.9 mmol/L (3.5-5.1)
[2018-01-03 08:21] LABS: INR 1.03 (0.87-1.13)
[2018-01-03] MEDS: ENSURE ENLIVE CHOC 237 ML CAN PO SCH ×2 (09:00→13:00)
[2018-01-03 10:00] VITALS: BP 102/64
--- NOTE | 2018-01-03 10:00 | NUR ---
MSRN. CARE ENDORSED TO CHANELL CHANG.
--- NOTE | 2018-01-03 10:01 | NUR ---
RN NOTES: RECEIVED REPORT FROM MIKIE LUA. PATIENT JUST ARRIVED ON UNIT. S/P EGD AND PEG INSERTION. PATIENT AOX1. NO FACIAL EXPRESSIONS NOTED. DENYING PAIN AT THE MOMENT. IV SITE ON RAC GAUGE 20 AND IV ON LEFT HAND PATENT AND INTACT. GTUBE INTACT WITH ABDOMINAL BINDER APPLIED PER ORDERS. PATIENT EDUCATED HUMAN RESOURCES OPERATIONS COORDINATOR LIGHT USAGE. BED IN LOWEST LOCKED POSITION. CALL LIGHT WITHIN REACH
--- NOTE | 2018-01-03 10:10 | NUR ---
PER DR YARBROUGH-GTUBE MAY BE USED FOR MEDICATIONS AND GTUBE FEEDING IN 8 HOURS PER HIS ORDERS, APPLY ABDOMINAL BINDER
[2018-01-03 10:30] VITALS: BP 123/83
--- NOTE | 2018-01-03 11:28 | NUR ---
DR SONG NOTIFIED THAT PEG IS INSERTED AND THAT GTUBE FEEDING TO BE STARTED AT [address] VELEZ ORDERS. PER HIS ORDERS, NPO EXCEPT MEDS OK TO GIVE PO MEDS WITH ASPIRATION PRECAUTIONS IMPLEMENTED VERBAL READBACK DONE
[2018-01-03] MEDS: NITROFURANTOIN/NITROFURAN MAC 100 MG CAPSULE PO SCH (11:41)
[2018-01-03] MEDS: OLANZAPINE 2.5 MG TABLET PO SCH (11:41)
[2018-01-03] MEDS: CLOTRIMAZOLE 1% 15 GM TUBE TP SCH ×2 (11:49→17:50)
[2018-01-03] MEDS: IV D5/ 0.9% NACL 1,000 ML IV PRN ×2 (11:50→21:48)
--- NOTE | 2018-01-03 11:52 | NUR ---
NO SIGNS OF ASPIRATION NOTED
[2018-01-03] MEDS ORDERED: HYDROCODONE/APAP 5/325MG 1 EACH TABLET GT PRN (13:27)
[2018-01-03] MEDS ORDERED: MAG HYDROX/AL HYDROX/SIMETH 30 ML UDC GT PRN (13:27)
[2018-01-03] MEDS ORDERED: MAGNESIUM HYDROXIDE 30 ML UDC GT PRN (13:29)
[2018-01-03] MEDS ORDERED: ACETAMINOPHEN 650 MG/20.3 ML UDC GT PRN (13:30)
[2018-01-03] MEDS ORDERED: MIRTAZAPINE 15 MG TABLET GT SCH (13:30)
[2018-01-03] MEDS ORDERED: PHARMACY TO CHANGE PO MEDS TO GT/NG XX PRN (13:30)
[2018-01-03] MEDS ORDERED: ZOLPIDEM TARTRATE 5 MG TABLET GT PRN (13:31)
--- NOTE | 2018-01-03 14:16 | NUR ---
RN NOTES GTUBE FEEDING ORDERED PER DR YARBROUGH AND FISH TENDER RECOMMENDATION OSMOLITE 1.2 AT 25 ML/HOUR Advance TF by 5 ml Q12 hours for a goal of 65 ml/hour
[2018-01-03] MEDS ORDERED: OSMOLITE 1.2 CAL 1,000 ML LIQUID GT PRN (14:30)
[2018-01-03 16:00] VITALS: BP 107/63
[2018-01-03] MEDS ORDERED: ENSURE ENLIVE CHOC 237 ML CAN PO SCH (17:00)
[2018-01-03] MEDS: OLANZAPINE 2.5 MG TABLET GT SCH (18:07)
--- NOTE | 2018-01-03 19:25 | NUR ---
MS RN OPENING NOTES: RECEIVED PT IN BED AND IS AWAKE. PT IS A/OX1. PT HAS UNCLEAR SPEECH BUT ABLE TO MAKE NEEDS KNOWN. PT HAS G TUBE FEEDING OSMOLITE AND IS RUNNING AT 25CC/HR. G TUBE NEWLY PLACED AND HAS BEEN FLUSHED. ABDOMINAL BINDER IN PLACE ORDERED. 2 IVS REMAIN INTACT. ONE IS BEING INFUSED WITH IV D5NS AT 100ML/HR. BED ALARM ACTIVATED. PT HAS HOB ELEVATED. CALL LIGHT WITHIN PT'S REACH. BED KEPT IN LOW, LOCKED POSITION, AND SIDE RAILS X2 UP. WILL CONTINUE TO MONITOR PT.
--- NOTE | 2018-01-03 19:40 | NUR ---
RN NOTES: PATIENT AOX1, RESTING IN BED. NO FACIAL EXPRESSIONS NOTED. DENYING PAIN AT THE MOMENT. IV SITE ON RAC GAUGE 20 AND IV ON LEFT HAND PATENT AND INTACT. GTUBE INTACT WITH ABDOMINAL BINDER APPLIED PER ORDERS. GTUBE FEEDING RUNNING PER ORDERS. NO RESIDUALS NOTED. BED IN LOWEST LOCKED POSITION.CALL LIGHT WITHIN REACH ENDORSED TO SAMANTHA LUA
[2018-01-03 20:00] VITALS: BP 127/77
--- NOTE | 2018-01-03 20:14 | NUR ---
MS RN NOTES: DR. FUNK AT BEDSIDE.
[2018-01-03] MEDS: NITROFURANTOIN/NITROFURAN MAC 100 MG CAPSULE GT SCH (20:24)
[2018-01-03] MEDS: ENOXAPARIN SODIUM 40 MG/0.4 ML DISP.SYRIN SQ SCH (20:26)
--- NOTE | 2018-01-04 05:05 | NUR ---
MS RN NOTES: PT'S IV ON R AC LEAKING. IV REMOVED. WILL USE OTHER IV ACCESS.
--- NOTE | 2018-01-04 06:30 | NUR ---
MS RN CLOSING NOTES: ALL NEEDS WERE ATTENDED AND ANTICIPATED FOR. PT KEPT CLEAN, DRY, AND COMFORTABLE. PT ASLEEP AT THIS TIME AND IS ON ROOM AIR. PT IN SEMI-AMTA'S POSITION. PT HAS IV ON L HAND #20G AND IS BEING INFUSED WITH IV D5NS AT 100ML/HR. PT ALSO HAS GTUBE FEEDING. NO RESIDUAL NOTED. PT HAS G TUBE FEEDING OSMOLITE 1.2 AT 25CC/HR. BED ALARM ACTIVATED. CALL LIGHT WITHIN PT'S REACH. BED KEPT IN LOW, LOCKED POSITION, AND SIDE RAILS X 2UP. WILL ENDORSE TO AM NURSE FOR AMEYA.
[2018-01-04 07:29] LABS: BASOPHILS # (AUTO) 0.1 /CMM (0.0-0.2); BASOPHILS % (AUTO) 0.7 % (0.0-2.0); EOSINOPHILS % (AUTO) 4.5 % (0.0-6.0); HEMATOCRIT 32 % (39-51); HEMOGLOBIN 10.5 g/dL (13.5-17.5); LYMPHOCYTES # (AUTO) 4.4 /CMM (0.8-4.8); LYMPHOCYTES % (AUTO) 45.5 % (20.0-44.0); MEAN CORPUSCULAR HEMOGLOBIN 30 PG (26.0-33.0); MEAN CORPUSCULAR HGB CONC 33 g/dl (31.0-36.0); MEAN CORPUSCULAR VOLUME 93 fL (80-96); MONOCYTES # (AUTO) 0.7 /CMM (0.1-1.30); MONOCYTES % (AUTO) 7.6 % (2.0-12.0); NEUTROPHILS % (AUTO) 41.7 % (43.0-81.0); PLATELET COUNT (AUTO) 379 /CMM (150-450); RDW COEFFICIENT OF VARIATION 20.2 (11.5-15.0); RED BLOOD CELL COUNT(AUTO) 3.44 MIL/uL (4.5-6.0); WHITE BLOOD COUNT (AUTO) 9.6 K/uL (4.3-11.0)
[2018-01-04 07:49] LABS: CALCIUM, SERUM 8.8 mg/dL (8.5-10.1); CREATININE 0.7 mg/dL (0.6-1.3); PHOSPHORUS 3.9 mg/dL (2.5-4.9); POTASSIUM 3.8 mmol/L (3.5-5.1)
[2018-01-04 08:00] VITALS: BP 116/65
[2018-01-04 08:03] LABS: IRON, SERUM 34 ug/dl (50-175); TOTAL IRON BINDING CAPACITY 155 ug/dl (250-450)
[2018-01-04 08:05] LABS: FERRITIN 237 ng/mL (8-388); FREE PSA < 0.06 ng/mL (0.00-45)
[2018-01-04 08:06] LABS: PROSTATE SPECIFIC ANTIGEN SCR < 0.13 ng/mL (0.00-4.00)
[2018-01-04] MEDS: IV D5/ 0.9% NACL 1,000 ML IV PRN (09:43)
[2018-01-04] MEDS: NITROFURANTOIN/NITROFURAN MAC 100 MG CAPSULE GT SCH (09:43)
[2018-01-04] MEDS: OLANZAPINE 2.5 MG TABLET GT SCH ×2 (09:43→18:36)
[2018-01-04] MEDS: CLOTRIMAZOLE 1% 15 GM TUBE TP SCH ×2 (09:44→18:36)
[2018-01-04 16:01] VITALS: BP 105/66
--- NOTE | 2018-01-04 17:30 | NUR ---
PT. REFUSING DISCHARGE PHOTOS.
--- NOTE | 2018-01-04 18:00 | NUR ---
TOLERATING TUBE FEEDING, RATE GRADUALLY INCREASED THROUGHOUT THE DAY.MAKING READY FOR DC BACK TO SNF.REPORT CALLED TO FACILITY.
--- NOTE | 2018-01-04 19:15 | NUR ---
PT. ENDORSED TO [facility] NOT HERE YET.
--- NOTE | 2018-01-04 19:30 | NUR ---
MS RN OPENING NOTES: RECEIVED PT ON ROOM AIR AND IS TOLERATING WELL. PT HAS IV INTACT AND ON L HAND. PT AWAITING FOR PICKUP FOR DISCHARGE. BED ALARM ACTIVATED. PT AWAKE AND IS A/OX1. SPEECH GARBLED/UNCLEAR. PT HAS ABDOMINAL BINDER IN PLACE. PT HAS G TUBE AND IS ON G TUBE FEEDING OSMOLITE AT 45ML/HR. NO RESIDUAL NOTED. HOB IN SEMI-MATA'S POSITION. CALL LIGHT WITHIN PT'S REACH. BED KEPT IN LOW, LOCKED POSITION, AND SIDE RAILS X 2UP. DR. FUNK AWARE THAT PT IS TO GO FOR DISCHARGE PER ENDORSEMENT AND JUST TO FOLLOW UP. WILL CONTINUE TO MONITOR PT.
[2018-01-04 19:58] VITALS: BP 121/64
--- NOTE | 2018-01-04 20:10 | NUR ---
MS LUA NOTES: CALLED SHRUTHI TO FOLLOW UP W/ PT'S STATUS. Addendum: 01/04/18 at 2010 by NIDA HANDY RN SPOKE WITH DUNCAN. REF #[id number]. PT TO GO TO [facility]. ETA FOR SHRUTHI TO ARRIVE IS 6 MIN.
--- NOTE | 2018-01-04 20:30 | NUR ---
MS RN NOTES: 3 PIPELINE SUPERINTENDENT AT BEDSIDE. IV ON L HAND REMOVED. G TUBE CLAMPED WITH AB BINDER IN PLACE. ARM BANDS REMOVED. PT STABLE TO GO FOR DISCHARGE TO [facility].
--- NOTE | 2018-01-04 20:39 | NUR ---
MS RN NOTES: PT LEFT IN STABLE CONDITION WITH 3 RENAL DIETITIAN TO GO TO [facility].
[2018-01-05 08:09] LABS: IMMUNOGLOBULIN A, SERUM 421 mg/dL (90-386); IMMUNOGLOBULIN G, SERUM 1925 mg/dL (700-1600); IMMUNOGLOBULIN M, SERUM 172 mg/dL (20-172)
[2018-01-05 12:13] LABS: *SPE A/G RATIO 0.6 (0.7-1.7); *SPE ALBUMIN 2.7 g/dL (2.9-4.4); *SPE ALPHA-1-GLOBULIN 0.3 g/dL (0.0-0.4); *SPE BETA GLOBULIN 0.9 g/dL (0.7-1.3); *SPE GLOBULIN, TOTAL 4.3 g/dL (2.2-3.9); *SPE M-SPIKE Not Observed g/dL (Not Observed)
== END 2018-01-04 20:40 | DRG 463 ==
LOC: ER 19:59 → TELE 12-30 00:39 → MED 12-30 12:05
PROC: 0DJ08ZZ Inspection of Upper Intestinal Tract, Via Natural or Artificial Opening Endoscopic (ICD-10-PCS; principal; 2018-01-03 09:10)
PROC: 0DH63UZ Insertion of Feeding Device into Stomach, Percutaneous Approach (ICD-10-PCS; principal; 2018-01-03 09:10)
DX: N39.0 Urinary tract infection, site not specified (principal); E43 Unspecified severe protein-calorie malnutrition; G93.41 Metabolic encephalopathy; R64 Cachexia; F32.9 Major depressive disorder, single episode, unspecified; R62.7 Adult failure to thrive; D63.8 Anemia in other chronic diseases classified elsewhere; B96.20 Unspecified Escherichia coli [E. coli] as the cause of diseases classified elsewhere; E87.6 Hypokalemia; E83.39 Other disorders of phosphorus metabolism; N18.9 Chronic kidney disease, unspecified; Z87.01 Personal history of pneumonia (recurrent); K58.9 Irritable bowel syndrome, unspecified; D47.3 Essential (hemorrhagic) thrombocythemia; F41.9 Anxiety disorder, unspecified; F29 Unspecified psychosis not due to a substance or known physiological condition; F20.0 Paranoid schizophrenia; I12.9 Hypertensive chronic kidney disease with stage 1 through stage 4 chronic kidney disease, or unspecified chronic kidney disease; Z68.1 Body mass index [BMI] 19.9 or less, adult; D72.829 Elevated white blood cell count, unspecified; M62.50 Muscle wasting and atrophy, not elsewhere classified, unspecified site; Z16.12 Extended spectrum beta lactamase (ESBL) resistance
CPT/HCPCS: 36415; 71045-TC; 80048-TC; 80061-TC; 80076-TC; 80202-TC; 81000-TC; 82247-TC; 82248-TC; 82306; 82728-TC; 82746; 82784; 83540-TC; 83605-TC; 83735-TC; 84100-TC; 84134-TC; 84153-TC; 84154-TC; 84155; 84165; 84439-TC; 84443-TC; 84484-TC; 85025-TC; 85610-TC; 85652-TC; 85730-TC; 86140-TC; 86334; 86850-TC; 87040-TC; 87081-TC; 87086-TC; 87186-TC; 92526; 92611-TC; 97110-TC; 97530-TC; A4216; A4606; J1650; J2185; J2543; J3370; J7030; J7042; J7060; Z7610

== ENCOUNTER 2018-05-30 02:41 | Inpatient (IN) | payer MEDICAID ==
[2018-05-30] VITALS (86 sets, daily range): BP systolic 80–125; BP diastolic 39–76
[~2018-05-30] VITALS: Ht 182.9 cm; Wt 54.4 kg
[~2018-05-30 02:41] MED LIST changes: -SENN-167 PO; +SENN-168 PO
--- NOTE | 2018-05-30 02:45 | NUR ---
PT BIB RA. COMP OF "BEING ALTERED" PT ALERT AND RESPONSIVE TO PAINFUL STIMULI. UNABLE TO TEST MOTOR FUNCTIONS AND COGNITIVE STATUS. MD NOTIFIED AND AT BEDSIDE.
--- NOTE | 2018-05-30 02:53 | NUR ---
URINE, LABS, AND BLOOD CULTURES DRAWN PRIOR TO ADMINISTRATION OF ABX AND SENT TO LAB
[2018-05-30] MEDS ORDERED: CEFEPIME 1 GM VIAL ONE (02:56)
[2018-05-30] MEDS ORDERED: VANCOMYCIN 1 GM VIAL ONE (02:57)
[2018-05-30] MEDS ORDERED: ACETAMINOPHEN 325 MG TABLET ONE (02:57)
[2018-05-30] MEDS ORDERED: CEFEPIME 1 GM in IV D5W 50 ML IV ONE (03:00)
[2018-05-30] MEDS ORDERED: ACETAMINOPHEN 650 MG/20.3 ML UDC PO ONE (03:00)
[2018-05-30] MEDS ORDERED: ROCURONIUM BROMIDE 100 MG/10 ML VIAL IV ONE (03:00)
[2018-05-30] MEDS ORDERED: MIDAZOLAM HCL 100 MG in IV NS 0.9% 80 ML IV PRN (03:00)
[2018-05-30] MEDS ORDERED: VANCOMYCIN 1 GM in IV D5W 250 ML IV ONE (03:00)
[2018-05-30] MEDS ORDERED: ETOMIDATE 2 MG/ML VIAL IV ONE (03:00)
[2018-05-30] MEDS ORDERED: IV NS 0.9% 1,000 ML BAG IV ONE ×2 (03:00→05:00)
[2018-05-30 03:03] LABS: BASOPHILS % (AUTO) 0.2 % (0.0-2.0); EOSINOPHILS % (AUTO) 0.3 % (0.0-6.0); HEMATOCRIT 37 % (39-51); HEMOGLOBIN 11.8 g/dL (13.5-17.5); LYMPHOCYTES # (AUTO) 3.8 /CMM (0.8-4.8); LYMPHOCYTES % (AUTO) 25.5 % (20.0-44.0); MEAN CORPUSCULAR HGB CONC 32 g/dl (31.0-36.0); MEAN CORPUSCULAR VOLUME 98 fL (80-96); MONOCYTES # (AUTO) 0.6 /CMM (0.1-1.30); MONOCYTES % (AUTO) 4.2 % (2.0-12.0); NEUTROPHILS # (AUTO) 10.4 /CMM (1.8-8.9); NEUTROPHILS % (AUTO) 69.8 % (43.0-81.0); PLATELET COUNT (AUTO) 307 /CMM (150-450); RED BLOOD CELL COUNT(AUTO) 3.77 MIL/uL (4.5-6.0); WHITE BLOOD COUNT (AUTO) 14.9 K/uL (4.3-11.0)
[2018-05-30 03:11] LABS: APPEARANCE,URINE TURBID (CLEAR); COLOR,URINE YELLOW (YELLOW)
[2018-05-30 03:12] LABS: PROTEIN,URINE 2+ mg/dl (NEGATIVE); UGLUCOSE NEGATIVE (NEGATIVE)
[2018-05-30 03:13] LABS: BILIRUBIN,URINE NEGATIVE (NEGATIVE); BLOOD, URINE 2+ Ery/uL (NEGATIVE); KETONES,URINE NEGATIVE (NEGATIVE); UROBILINOGEN,URINE 0.2 EU/dL (0.2)
[2018-05-30 03:14] LABS: LEUKOCYTE ESTERASE ,URINE 3+ (NEGATIVE); NITRITE, URINE NEGATIVE (NEGATIVE)
[2018-05-30 03:16] LABS: ALANINE AMINOTRANSFERASE 16 U/L (12-78); ALKALINE PHOSPHATASE 171 U/L (46-116); ASPARTATE AMINOTRANSFERASE 22 U/L (15-37); BILIRUBIN,DIRECT 0.3 mg/dL (0.0-0.2); BILIRUBIN,TOTAL 0.5 mg/dL (0.2-1.0); CALCIUM, SERUM 9.5 mg/dL (8.5-10.1); CARBON DIOXIDE 31 mmol/L (21-32); GLUCOSE 160 mg/dL (74-106); POTASSIUM 3.6 mmol/L (3.5-5.1); TOTAL PROTEIN, SERUM 9.2 g/dL (6.4-8.2)
[2018-05-30 03:17] LABS: BACTERIA,URINE Moderate /HPF (None Seen); SQUAMOUS EPITHELIAL CELL,UR Rare /HPF (None Seen); WBC,URINE TOO NUMEROUS TO COUN /HPF (0-3)
[2018-05-30 03:20] LABS: CHLORIDE 130 mmol/L (98-107); SODIUM SERUM 168 mmol/L (136-145); UREA NITROGEN, BLOOD 85 mg/dL (7-18)
[2018-05-30] MEDS ORDERED: PROPOFOL 100 ML IV ONE (03:24)
[2018-05-30] MEDS ORDERED: PROPOFOL 100 ML ONE (03:29)
[2018-05-30] MEDS ORDERED: NOREPINEPHRINE 8 MG in IV D5W 500 ML IV ONE (03:30)
--- NOTE | 2018-05-30 03:35 | NUR ---
RT TRANSPORTED PT TO CT Addendum: 05/30/18 at 0454 by WALE VARGAS RT Amended: Links added.
[2018-05-30] MEDS ORDERED: NOREPINEPHRINE 4 MG/4 ML AMPUL IV ONE (04:01)
[2018-05-30] MEDS ORDERED: MIDAZOLAM 50 MG/10 ML VIAL ONE (04:20)
[2018-05-30 04:34] LABS: ABG BASE EXCESS 1.3 mmol/L; ABG OXYGEN SATURATION 97.4 % (92.0-98.5); ABG PH 7.404 (7.350-7.450); ABG PO2 112.1 mmHg (75.0-100.0); AaDO2 268.4 mmHg; COHb 0.2 % (0.5-1.5); MetHb 0.5 % (0.0-1.5); O2Hb 96.7 % (94.0-97.0); PEEP,BG 5 cm H2O; SITE, ABG Right Radial; VENT MODE, BG AC 14 450 60% +5; VT, ABG 450 mL
[2018-05-30] MEDS: FENTANYL CITRAT IV 2,500 MCG in IV NS 0.9% 200 ML IV PRN ×3 (04:40→04:42)
--- NOTE | 2018-05-30 04:43 | NUR ---
Patient is resting comfortably in bed with eyes closed. Easily aroused. VSS
--- NOTE | 2018-05-30 04:49 | NUR ---
PT INTUBATED IN ER PER MD ORDER. PT PLACED ON VENT VIA ETT 7.5@23CM. ETT SECURE VIA ETT QUEVEDO. PT SEDATED. AMBU BAG AT BEDSIDE. ALARMS SET AND AUDIBLE. VENT PLUGGED INTO RED OUTLET. DISCONNECT ALARMS CHECKED. SUCTIONED A SMALL AMOUNT OF THICK GREEN SECRETIONS. PT RECEIVING NO BREATHING TX AT THIS TIME Addendum: 05/30/18 at 0452 by WALE VARGAS RT Amended: Links added.
[2018-05-30] MEDS ORDERED: BISACODYL SUPP (10 MG) 10 MG/SUPP.RECT SUPP.RECT RC PRN (05:00)
[2018-05-30] MEDS ORDERED: ACETAMINOPHEN 325 MG TABLET PO PRN (05:00)
[2018-05-30] MEDS ORDERED: MAGNESIUM HYDROXIDE 30 ML UDC PO PRN (05:00)
[2018-05-30] MEDS ORDERED: ONDANSETRON HCL/PF 4 MG/2 ML VIAL IVP PRN (05:00)
[2018-05-30] MEDS ORDERED: ACETAMINOPHEN 650 MG/SUPP.RECT RC PRN (05:00)
[2018-05-30] MEDS ORDERED: IV D5/0.45 NACL 1,000 ML IV ONE (05:00)
[2018-05-30] MEDS ORDERED: NOREPINEPHRINE 8 MG in IV D5W 500 ML IV PRN (05:00)
[2018-05-30] MEDS ORDERED: NA PHOS,M-B/NA PHOS,DI-BA 1 EA ENEMA RC PRN (05:00)
[2018-05-30] MEDS ORDERED: VANCOMYCIN 1 GM in IV D5W 250ml IV ONE (05:00)
--- NOTE | 2018-05-30 05:21 | NUR ---
REPORT GIVEN TO ED JACQUARD PLATE MAKER.
[2018-05-30] MEDS ORDERED: PIPERACILLIN /TAZOBACTAM 3.375 G VIAL IV ONE (05:30)
[2018-05-30 05:48] LABS: MAGNESIUM 3.3 mg/dL (1.8-2.4); PHOSPHORUS 2.6 mg/dL (2.5-4.9)
[2018-05-30 05:58] LABS: THYROID STIMULATING HORMONE 2.521 uIU/mL (0.358-3.74)
[2018-05-30] MEDS ORDERED: PIPERACILLIN /TAZOBACTAM 3.375 G in IV D5W 50 ML IV SCH (06:00)
--- NOTE | 2018-05-30 06:00 | NUR ---
PRICER BAGGER PT WAS ADMITTED FROM ER WITH DIAGNOSIS SEPTIC SHOCK, RESPIRATORY FAILURE. STAT INTUBATION WAS DONE IN ER & PT WAS PLACED ON VENTILATOR AC MODE. RIGHT INTERNAL JUGULAR TLC WAS INSERTED AND PT WAS GIVEN 2.5 L OF NS BOLUS IN ER. F/C WAS INSERTED WHICH DRAINS SUFFICIENT AMT. OF PUSSY URINE. PT IS ON LEVOPHED DRIP TO KEEP SBP>90. ALSO VERSED DRIP IS RUNNING ON LOW DOSE TO KEEP PT SEDATED. SCOPE-ST. AFEBRILE. REPORT GIVEN TO PATRICIA ABARCA RN.
--- NOTE | 2018-05-30 07:15 | NUR ---
RECEIVED PATIENT SEDATED ON VERSED GTT WILL TITRATE NEEDED FOR SEDATION. INTUBATED 7.11/03 WITH VENT SETTINGS PER ORDER. PATIENT SATURATION 90% AT THIS TIME. RT AWARE PATIENT NEEDING RESPIRATORY CULTURE. PER RN LAST NIGHT KIRKLAND CHANGED S/T LEAKING AND CLOGGED FROM PUSSY DRAINAGE. KIRKLAND WAS IRRIGATED LAST NIGHT AND PATENT AT THIS TIME WITH STILL PUSSY OUTPUT. IV SITES C/D/I/P AND IVF RUNNING PER MD ORDER. PATIENT ON LEVO WILL CONTINUE TO TITRATE NEEDED. PENDING NEPHRO/ PULM/ DIETARY, AND ID CONSULT TODAY.PENDING ECHO TODAY AND UPDATED AM LABS Addendum: 05/30/18 at 0824 by TEVIN MCADAMS RN SAFETY, SKIN, ASPIRATION PRECAUTIONS IN PLACE WILL MONITOR
--- NOTE | 2018-05-30 07:30 | NUR ---
PATIENT DESATURATING. RT AT BEDSIDE. FI02 INCREASED TO 100% AT THIS TIME. ABG STAT ORDERED.
[2018-05-30 08:32] LABS: ABG BASE EXCESS -1.2 mmol/L; ABG OXYGEN SATURATION 94.1 % (92.0-98.5); ABG PCO2 42.5 mmHg (35.0-45.0); ABG PH 7.371 (7.350-7.450); ABG PO2 75.2 mmHg (75.0-100.0); AaDO2 595.3 mmHg; COHb 0.3 % (0.5-1.5); MetHb 0.3 % (0.0-1.5); O2Hb 93.5 % (94.0-97.0); SITE, ABG Right Radial
--- NOTE | 2018-05-30 08:41 | NUR ---
DR GAVIN NOTIFIED OF PATIENT ABG AND DESATURATING WITH CURRENT VENT SETTINGS LOW 82% PER MD PEEP OF 8.
--- NOTE | 2018-05-30 08:43 | NUR ---
RT PER DR GAVIN PEEP INCREASED TO 8. Addendum: 05/30/18 at 0844 by FLORIDALMA MAHAJAN RT Amended: Links added.
[2018-05-30] MEDS ORDERED: FEE PK DOSING 1 MIN EA MC ONE (08:45)
[2018-05-30] MEDS: PANTOPRAZOLE 40 MG VIAL IV SCH (08:59)
[2018-05-30] MEDS: OLANZAPINE 2.5 MG TABLET PO SCH ×2 (09:00→17:14)
[2018-05-30] MEDS: FERROUS SULFATE (325 MG) 325 MG/TAB TABLET PO SCH (09:00)
[2018-05-30] MEDS: MULTIVIT, IRON, MIN NO. 8, FA 1 TAB PO SCH (09:00)
[2018-05-30] MEDS: ASCORBIC ACID 500 MG TABLET PO SCH (09:00)
[2018-05-30 11:45] LABS: BASOPHILS % (AUTO) 0.3 % (0.0-2.0); EOSINOPHILS % (AUTO) 0.8 % (0.0-6.0); HEMATOCRIT 33 % (39-51); HEMOGLOBIN 10.3 g/dL (13.5-17.5); LYMPHOCYTES # (AUTO) 3.9 /CMM (0.8-4.8); LYMPHOCYTES % (AUTO) 33.2 % (20.0-44.0); MEAN CORPUSCULAR HGB CONC 32 g/dl (31.0-36.0); MEAN CORPUSCULAR VOLUME 99 fL (80-96); MONOCYTES # (AUTO) 0.2 /CMM (0.1-1.30); MONOCYTES % (AUTO) 1.8 % (2.0-12.0); NEUTROPHILS # (AUTO) 7.5 /CMM (1.8-8.9); NEUTROPHILS % (AUTO) 63.9 % (43.0-81.0); PLATELET COUNT (AUTO) 250 /CMM (150-450); WHITE BLOOD COUNT (AUTO) 11.7 K/uL (4.3-11.0)
[2018-05-30 11:53] LABS: ALBUMIN 1.6 g/dL (3.4-5.0); BILIRUBIN,TOTAL 0.8 mg/dL (0.2-1.0); CALCIUM, SERUM 8.2 mg/dL (8.5-10.1); CREATININE 1.8 mg/dL (0.6-1.3); TOTAL PROTEIN, SERUM 7.7 g/dL (6.4-8.2)
--- NOTE | 2018-05-30 11:59 | NUR ---
DR KIKE WALLER AT BEDSIDE. PER PLEASE GIVE 250ML FREE WATER FLUSHES THROUGH G TUBE Q6H.
--- NOTE | 2018-05-30 12:06 | NUR ---
DR WALLER NOTIFIED OF PATIENT UPDATED CHEM PANEL.
[2018-05-30] MEDS ORDERED: ROCURONIUM BROMIDE 50 MG/5 ML ONE (12:17)
[2018-05-30] MEDS ORDERED: ETOMIDATE 2 MG/ML VIAL ONE (12:17)
[2018-05-30 12:33] LABS: ABG OXYGEN SATURATION 98.1 % (92.0-98.5); ABG PCO2 42.2 mmHg (35.0-45.0); ABG PH 7.405 (7.350-7.450); ABG PO2 129.8 mmHg (75.0-100.0); COHb 0.4 % (0.5-1.5); MetHb 0.4 % (0.0-1.5); O2Hb 97.3 % (94.0-97.0); PEEP,BG 8 cm H2O; SITE, ABG Right Brachial
--- NOTE | 2018-05-30 12:40 | NUR ---
DR WELSH AT BEDSIDE FOR EVAL. UPDATED ON PATIENT CONDITION, LABS, VS.
[2018-05-30] MEDS: PIPERACILLIN /TAZOBACTAM 2.25 G in IV D5W 50 ML IV SCH ×3 (12:46→23:11)
--- NOTE | 2018-05-30 12:50 | NUR ---
NOTIFIED DR GAVIN OF PATIENT UPDATED ABG. PER PLEASE DECREASE FI02 TO 75%
[2018-05-30] MEDS ORDERED: PROPOFOL 100 ML IV PRN (13:00)
--- NOTE | 2018-05-30 13:04 | NUR ---
SPOKE WITH CECILIA AND NOTIFIED PATIENT AT 7MG/HR AND STILL BITING AT ETT AND RR ELEVATED. PER CECILIA OK TO DC VERSED/FENTANYL AND ORDER DIPRIVAN FOR SEDATION TITRATE PER PROTOCOL
[2018-05-30] MEDS: ACETAMINOPHEN 325 MG TABLET PO PRN ×2 (14:10→21:07)
[2018-05-30] MEDS: PROPOFOL 100 ML IV PRN (14:41)
[2018-05-30] MEDS: NOREPINEPHRINE 8 MG in IV D5W 500 ML IV PRN ×2 (14:58→20:20)
[2018-05-30] MEDS: IV D5/0.45 NACL 1,000 ML IV PRN (14:59)
--- NOTE | 2018-05-30 15:54 | NUR ---
RT SHIFT REPORT, PT. 58 Y OLD MALE REC. 0630 AM ORALLY INTUBATED ETT #7.5 @ 23 CM LIP LINE ON VENT WITH NOTED SETTINGS, ALARMS AR ESET AND FUNCTIONAL ( AUDIBLE ) NO DISTRESS NOTED. T/O DAY DR. GAVIN ORDER VENT CHANGES PEEP OF +8 AND 100% DONE BY RT AND TITRATED THE FIO2 TO 60 %. T/O SHIFT. PT. REMAIN STABLE. AMBU BAG REMAIN AT TH BEDSIDE. B/S RALES BILATERALLY SUX'D FOR SMALL AMT OF YELLOW SECRETIONS EQUAL CHEST RISE NOTED. VENT PLUGGED INTO RED OUTLET AND CONTINUE TO MONITOR. PT. FULL CODE. HME CHANGED. IMAGING CENTER MANAGER DONE, REPORT WILL BE PASS TO PM SHIFT. Addendum: 05/30/18 at 1558 by MIKIE LEI RT Amended: Links added.
--- NOTE | 2018-05-30 16:14 | NUR ---
NOTIFIED DR WELSH OF PATIENT TEMP MAX 103.5. PER MD PLEASE OBTAIN ANOTHER BLOOD CULTURE ONE FROM PERIPHERAL DRAW AND TLC DRAW. PATIENT TEMP BETTER AT THIS TIME WITH COOLING MEASURES 101.0 CORE
--- NOTE | 2018-05-30 19:15 | NUR ---
SALES AND MARKETING MANAGER NOTES SPOKE TO DR BROOKS REGARDING POTASSIUM LEVEL OF 3.0, WITH ORDER TO REPLACE WITH 40 MEQ KCL VIA GT. MD ALSO WITH ORDER FOR BILATERAL SOFT WRIST RESTRAINTS SINCE PATIENT IS ORALLY INTUBATED. ALL ORDERS READ BACK FOR CLARIFICATION. WILL CARRY OUT
--- NOTE | 2018-05-30 19:16 | NUR ---
ALL DUE MEDS GIVEN AND ALL NEEDS MET. IV SITES C/D/I/P. PATIENT TOLERATING VENT SETTINGS. 60% FI02 AT THIS TIME. KIRKLAND CATH INTACT AND PATENT. PATIENT BP STABLE WITH LEVO. IVF PER MD ORDER. GOOD URINE OUTPUT TODAY. CARE ENDORSED TO RN DANYELL FOR AMEYA. SAFETY, SKIN, ASPIRATION PRECAUTIONS IN PLACE AND MONITORED THROUGHOUT DAY.
[2018-05-30] MEDS ORDERED: POTASSIUM CHLORIDE 20 MEQ TAB.PRT.SR PO ONE (20:00)
[2018-05-30] MEDS: SENNOSIDES 8.6 MG TABLET PO SCH (21:07)
[2018-05-30] MEDS: MIRTAZAPINE 15 MG TABLET PO SCH (21:08)
[2018-05-30] MEDS: VANCOMYCIN 0.75 GM in IV D5W 250 ML IV SCH (21:08)
[2018-05-31] VITALS (82 sets, daily range): BP systolic 74–147; BP diastolic 37–80
[2018-05-31] MEDS: PROPOFOL 100 ML IV PRN ×2 (01:54→14:02)
[2018-05-31] MEDS: IV D5/0.45 NACL 1,000 ML IV PRN ×3 (01:55→21:54)
[2018-05-31] MEDS ORDERED: NOREPINEPHRINE 4 MG/4 ML AMPUL IV ONE (02:27)
--- NOTE | 2018-05-31 04:00 | NUR ---
PLASTIC PRESS MOLDER NOTES BED BATH RENDERED, ALL WOUND PERFORMED PRESCRIBED, PATIENT TOLERATED WELL, VSS
[2018-05-31] MEDS: NOREPINEPHRINE 8 MG in IV D5W 500 ML IV PRN ×2 (04:59→17:22)
[2018-05-31 05:06] LABS: BASOPHILS % (AUTO) 0.2 % (0.0-2.0); EOSINOPHILS % (AUTO) 1.5 % (0.0-6.0); HEMATOCRIT 30 % (39-51); HEMOGLOBIN 9.5 g/dL (13.5-17.5); LYMPHOCYTES % (AUTO) 19.2 % (20.0-44.0); MEAN CORPUSCULAR HGB CONC 32 g/dl (31.0-36.0); MEAN CORPUSCULAR VOLUME 97 fL (80-96); MONOCYTES # (AUTO) 0.4 /CMM (0.1-1.30); MONOCYTES % (AUTO) 2.5 % (2.0-12.0); NEUTROPHILS # (AUTO) 11.9 /CMM (1.8-8.9); NEUTROPHILS % (AUTO) 76.6 % (43.0-81.0); PLATELET COUNT (AUTO) 227 /CMM (150-450); RED BLOOD CELL COUNT(AUTO) 3.05 MIL/uL (4.5-6.0); WHITE BLOOD COUNT (AUTO) 15.5 K/uL (4.3-11.0)
[2018-05-31 05:29] LABS: CREATININE 1.3 mg/dL (0.6-1.3); PHOSPHORUS 2.3 mg/dL (2.5-4.9)
[2018-05-31] MEDS: ACETAMINOPHEN 325 MG TABLET PO PRN ×3 (05:40→23:31)
[2018-05-31] MEDS: PIPERACILLIN /TAZOBACTAM 2.25 G in IV D5W 50 ML IV SCH ×4 (05:42→23:34)
--- NOTE | 2018-05-31 06:15 | NUR ---
TAR LEVELER NOTES PATIENT'S RHYTHM NOTED TO SOMETIMES GO BACK AND FORTH FROM SINUS RHYTHM TO ACCELERATED JUNCTIONAL
--- NOTE | 2018-05-31 07:00 | NUR ---
report received from Julien RN, remains on propofol, Levophed drips and levy soft wrist restraints
--- NOTE | 2018-05-31 07:00 | NUR ---
CARDIOVASCULAR LAB DIRECTOR CLOSING NOTES PATIENT RESTING IN BED, APPEASR COMFORTABLE. REMAINS ORALLY INTUBATED, SEDATED ON DIPRIVAN, WITH LEVO GTT FOR BP SUPPORT, COOLING MEASURES EFFECTIVE, TEMP WNL ATT HIS TIME. WILL ENDORSE THE PATIENT TO THE AM SHIFT NURSE FOR AMEYA
--- NOTE | 2018-05-31 07:40 | NUR ---
PT RECEIVED ORALLY INTUBATED ON MECHANICAL VENT IN ICU, VENT IN RED OUTLET, VENT ALARMS CHECKED AND AUDIBLE, AMBUBAG AT BEDSIDE. PT SX'ED AND LAVAGED PRN, ETT CLEAN, PATENT, SECURED W/ AN ANCHOFAST. BS EQUAL, DIMINISHED. PLAN IS TO CONTINUE CARE UNDER CURRENT MD ORDERS AND MONITOR FOR CHANGES. Addendum: 05/31/18 at 0740 by FRANCHESCA PANCHAL RT Amended: Links added.
[2018-05-31] MEDS: PANTOPRAZOLE 40 MG VIAL IV SCH (08:14)
[2018-05-31] MEDS: ASCORBIC ACID 500 MG TABLET PO SCH (08:14)
[2018-05-31] MEDS: OLANZAPINE 2.5 MG TABLET PO SCH ×2 (08:15→17:20)
[2018-05-31] MEDS: MULTIVIT, IRON, MIN NO. 8, FA 1 TAB PO SCH (08:15)
[2018-05-31] MEDS: FERROUS SULFATE (325 MG) 325 MG/TAB TABLET PO SCH (08:16)
[2018-05-31 08:34] LABS: ABG BASE EXCESS -2.1 mmol/L; ABG PCO2 38.9 mmHg (35.0-45.0); ABG PH 7.384 (7.350-7.450); ABG PO2 132.4 mmHg (75.0-100.0); AaDO2 252.6 mmHg; COHb 0.3 % (0.5-1.5); MetHb 0.7 % (0.0-1.5); PEEP,BG 8 cm H2O; SITE, ABG Right Brachial; VENT MODE, BG AC 14 450 60% +8; VT, ABG 450 mL
--- NOTE | 2018-05-31 08:40 | NUR ---
FIO2 decreased by Murad RT to 50%
--- NOTE | 2018-05-31 10:20 | NUR ---
off Propofol. following simple commands ie: show 2 fingers
--- NOTE | 2018-05-31 10:27 | NUR ---
respiration at 30-32; placed back on propofol drip
[2018-05-31] MEDS: POTASSIUM CHLORIDE 20 MEQ TAB.PRT.SR PO SCH ×3 (11:03→13:32)
[2018-05-31] MEDS ORDERED: K PHOS NEUTRAL 250 MG TABLET PO ONE (11:30)
[2018-05-31] MEDS: VANCOMYCIN 0.75 GM in IV D5W 250 ML IV SCH (14:12)
--- NOTE | 2018-05-31 19:07 | NUR ---
report given to David LUA
--- NOTE | 2018-05-31 19:30 | NUR ---
CHAIN HOIST OPERATOR INITIAL SHIFT NOTES RECEIVED PATIENT IN BED, SEDATED ON DIPRIVAN, CURRENTLY @ 10 MCG. PATIENT ORALLY INTUBATED, ETT 7.5, 23CM @ LIP LINE, ON MECHANICAL VENTILATION AT PRESCRIBED SETTINGS, TOLERATING WELL, FREE FROM ANY S/S OF RESPIRATORY DISTRESS. GT PATENT AND INTACT, CLAMPED. BILATERAL SOFT WRIST RESTRAINTS IN PLACE, REMOVED AND SKIN ASSESSED. KIRKLAND CATHETER DRAINING YELLOW, CLOUDY, PURULENT URINE WITH SEDIMENT. RIJ PATENT AND INTACT, ALL PORTS FLUSHED, NOTED WITH GOOD VENOUS RETURN. RUNNING IVF D5 1/2 NS @ 125, LEVOPHED GTT @ 6MCG, DIPRIVAN GTT @ 15MCG. BED IN LOWEST AND LOCKED POSITION WITH HOB ELEVATED IN SEMIFOWLER'S POSITION. WILL CONTINUE TO CLOSELY MONITOR THE PATIENT
[2018-05-31] MEDS: SENNOSIDES 8.6 MG TABLET PO SCH (21:54)
[2018-05-31] MEDS: MIRTAZAPINE 15 MG TABLET PO SCH (21:54)
[2018-06-01] VITALS (104 sets, daily range): BP systolic 83–129; BP diastolic 47–79
[2018-06-01] MEDS: PROPOFOL 100 ML IV PRN ×2 (02:11→14:18)
[2018-06-01] MEDS ORDERED: VANCOMYCIN 0.75 GM in IV D5W 250 ML IV SCH (03:00)
[2018-06-01 05:06] LABS: BASOPHILS % (AUTO) 0.2 % (0.0-2.0); EOSINOPHILS % (AUTO) 2.4 % (0.0-6.0); HEMATOCRIT 28 % (39-51); HEMOGLOBIN 9.1 g/dL (13.5-17.5); LYMPHOCYTES % (AUTO) 15.2 % (20.0-44.0); MEAN CORPUSCULAR HGB CONC 33 g/dl (31.0-36.0); MEAN CORPUSCULAR VOLUME 96 fL (80-96); MONOCYTES # (AUTO) 0.4 /CMM (0.1-1.30); MONOCYTES % (AUTO) 2.7 % (2.0-12.0); NEUTROPHILS # (AUTO) 10.3 /CMM (1.8-8.9); NEUTROPHILS % (AUTO) 79.5 % (43.0-81.0); PLATELET COUNT (AUTO) 193 /CMM (150-450)
[2018-06-01 05:15] LABS: CALCIUM, SERUM 8.2 mg/dL (8.5-10.1); CREATININE 1.1 mg/dL (0.6-1.3); PHOSPHORUS 2.3 mg/dL (2.5-4.9)
[2018-06-01 05:47] LABS: POTASSIUM 2.7 mmol/L (3.5-5.1)
[2018-06-01] MEDS: PIPERACILLIN /TAZOBACTAM 2.25 G in IV D5W 50 ML IV SCH ×4 (06:13→23:43)
--- NOTE | 2018-06-01 06:18 | NUR ---
TANNING CONSULTANT NOTES K LEVLE = 2.7. DR ISAAC MADE AWARE, WITH ORDER FOR 60 MEQ KCL IV. WILL CARRY OUT NEW ORDERS
[2018-06-01] MEDS: POTASSIUM CL. PREMIX PERIPHER. 50 ML IV SCH ×6 (06:38→12:48)
--- NOTE | 2018-06-01 07:00 | NUR ---
ASSISTANT OPERATOR NOTES PATIENT RESTING COMFORTABLY IN BED, REMAINS ORALLY INTUBATED, SEDATED ON DIPRIVAN, ON LEVOPHED GTT @ 6MCG. WILL ENDORSE THE PATIENT TO THE AM SHIFT NURSE FOR CONTINUITY OF CARE
--- NOTE | 2018-06-01 07:30 | NUR ---
RECEIVED PATIENT. INTUBATED AND TOLERATING VENT SETTINGS. PATIENT ON DIPRIVAN AND CALM AND COOPERATIVE AND FOLLOWING COMMANDS. ON LEVO FOR BP SUPPORT. KIRKLAND CATH IN PLACE DRAINING TO GRAVITY. IV SITES C/D/I/P. G TUBE CLAMPED PENDING TUBE FEEDING ORDERS; WILL FOLLOW UP. PENDING C/S FOR URINE SAMPLE; HX OF ESBL. PATIENT APPEARS STABLE AT THIS TIME. SAFETY, SKIN, ASPIRATION PRECAUTIONS IN PLACE AND WILL MONITOR
[2018-06-01 08:03] LABS: ABG BASE EXCESS -0.2 mmol/L; ABG OXYGEN SATURATION 97.2 % (92.0-98.5); ABG PCO2 35.4 mmHg (35.0-45.0); ABG PH 7.442 (7.350-7.450); ABG PO2 104.3 mmHg (75.0-100.0); AaDO2 212.4 mmHg; COHb 0.3 % (0.5-1.5); MetHb 0.5 % (0.0-1.5); O2Hb 96.4 % (94.0-97.0); PEEP,BG 8 cm H2O; SITE, ABG Right Brachial; VT, ABG 450 mL
[2018-06-01] MEDS: ASCORBIC ACID 500 MG TABLET PO SCH (08:06)
[2018-06-01] MEDS: FERROUS SULFATE (325 MG) 325 MG/TAB TABLET PO SCH (08:06)
[2018-06-01] MEDS: OLANZAPINE 2.5 MG TABLET PO SCH ×2 (08:06→17:45)
[2018-06-01] MEDS: MULTIVIT, IRON, MIN NO. 8, FA 1 TAB PO SCH (08:06)
[2018-06-01] MEDS: PANTOPRAZOLE 40 MG VIAL IV SCH (08:07)
[2018-06-01] MEDS ORDERED: IV NS 0.9% 250 ML IV PRN (08:30)
--- NOTE | 2018-06-01 08:30 | NUR ---
dr rome at bedside. updated on patient abg this am. no new order. patient to have simv trial tomorrow 06/02
--- NOTE | 2018-06-01 10:00 | NUR ---
DR SONG AT BEDSIDE. UPDATED ON PATIENT LABS, VS, SIMV TRIAL TOMORROW. NO NEW ORDERS PER MD. RESTRAINTS WILL BE REORDERED BY MD PATIENT AWAKE EASILY AND WILL ATTEMPT TO PULL AT ETT
--- NOTE | 2018-06-01 11:00 | NUR ---
dr plaza at bedside. no new orders
[2018-06-01] MEDS: Potassium Chloride 40 MEQ in IV D5/0.45 NACL 1,000 ML IV PRN ×2 (11:11→21:10)
--- NOTE | 2018-06-01 13:14 | NUR ---
patient isolated for esbl urine. notified dr plaza. per dr pilar cooper to start tube feeding per dietary rec.
[2018-06-01] MEDS ORDERED: NEUTRA PHOS 1 POWD.PACKET NG ONE (15:00)
[2018-06-01] MEDS: NOREPINEPHRINE 8 MG in IV D5W 500 ML IV PRN (17:38)
[2018-06-01] MEDS: JEVITY 1.2 CAL 1,000 ML BOTTLE GT PRN (18:48)
--- NOTE | 2018-06-01 19:11 | NUR ---
CARE ENDORSED TO CHANELL PABLO FOR AMEYA. ALL DUE MEDS GIVEN AND ALL NEEDS MET. PATIENT SAFETY, SKIN, ASPIRATION, AND ISOLATION PRECAUTIONS MONITORED THROUGHOUT DAY. KIRKLAND CATH IN PLACE DRAINING TO GRAVITY. IV SITES C/D/I/P WITH IVF AND DRIPS RUNNING PER ORDER/PROTOCOL; SEE IV SPREADSHEET. TOLERATING VENT SETTINGS SEDATED AWAKE TO LIGHT TOUCH.
--- NOTE | 2018-06-01 20:10 | NUR ---
PROJECT ASST NOTES RECEIVED PT ON BED. A/O X2. ON [facility] VENT SETTING SATURATING WELL. NO RESPIRATORY DISTRESS NOTED. ON TELE MONITOR SR. ON KIRKLAND CATH DRAINING WELL. RIJ PATENT AND INTACT. PT ON LEVO @ 4MCG/HR, IVF D51/2NS @ 100CC/HR AND DIPRIVAN @ 15. HEAD OF BED ELEVATED. SIDE RAILS UP. CALL LIGHT WITHIN REACH. BED ALARM ON, WILL CONTINUE TO MONITOR PT CLOSELY.
[2018-06-01] MEDS: MIRTAZAPINE 15 MG TABLET PO SCH (21:11)
[2018-06-01] MEDS: SENNOSIDES 8.6 MG TABLET PO SCH (21:11)
--- NOTE | 2018-06-01 23:31 | NUR ---
MANUFACTURED BUILDINGS SUPERVISOR NOTES PT TEMPT 99.7. GIVEN TYLENOL 650MG PO AND COOLING MEASURES DONE. WILL CONTINUE TO MONITOR PT CLOSELY.
[2018-06-01] MEDS: ACETAMINOPHEN 325 MG TABLET PO PRN (23:44)
--- NOTE | 2018-06-01 23:52 | NUR ---
BENCH SHEAR OPERATOR NOTES TEMPT OF 98.7 VIA ORAL. WILL MONITOR PT CLOSELY.
[2018-06-02] VITALS (75 sets, daily range): BP systolic 76–130; BP diastolic 48–77
[2018-06-02] MEDS: PROPOFOL 100 ML IV PRN (02:21)
[2018-06-02 04:53] LABS: BASOPHILS % (AUTO) 0.1 % (0.0-2.0); EOSINOPHILS % (AUTO) 3.4 % (0.0-6.0); HEMATOCRIT 26 % (39-51); HEMOGLOBIN 8.8 g/dL (13.5-17.5); LYMPHOCYTES # (AUTO) 1.6 /CMM (0.8-4.8); LYMPHOCYTES % (AUTO) 18.6 % (20.0-44.0); MEAN CORPUSCULAR HGB CONC 33 g/dl (31.0-36.0); MEAN CORPUSCULAR VOLUME 95 fL (80-96); MONOCYTES # (AUTO) 0.3 /CMM (0.1-1.30); NEUTROPHILS # (AUTO) 6.2 /CMM (1.8-8.9); NEUTROPHILS % (AUTO) 73.9 % (43.0-81.0); PLATELET COUNT (AUTO) 204 /CMM (150-450); RED BLOOD CELL COUNT(AUTO) 2.79 MIL/uL (4.5-6.0); WHITE BLOOD COUNT (AUTO) 8.4 K/uL (4.3-11.0)
[2018-06-02] MEDS: PIPERACILLIN /TAZOBACTAM 2.25 G in IV D5W 50 ML IV SCH ×2 (05:00→12:21)
[2018-06-02 05:11] LABS: CALCIUM, SERUM 8.2 mg/dL (8.5-10.1); CREATININE 0.9 mg/dL (0.6-1.3); POTASSIUM 3.5 mmol/L (3.5-5.1)
--- NOTE | 2018-06-02 07:28 | NUR ---
BRACE MAKER NOTES NO ACUTE CHANGES NOTED DURING THE SHIFT.
--- NOTE | 2018-06-02 08:01 | NUR ---
MEXICAN FOOD MAKER NOTES RECEIVED PT ON BED. ON [facility] VENT SETTING SATURATING WELL. NO RESPIRATORY DISTRESS NOTED. ON TELE MONITOR SR. ON KIRKLAND CATH DRAINING WELL. RIJ PATENT AND INTACT. PT ON LEVO @ 4MCG/HR, IVF D51/2NS @ 100CC/HR AND DIPRIVAN @ 15. HEAD OF BED ELEVATED. SIDE RAILS UP. CALL LIGHT WITHIN REACH. BED ALARM ON, WILL CONTINUE TO MONITOR PT CLOSELY. ON SOFT RESTRAIN ORDERED, PER RT CHANGED TO SIMV MODE RATE 4 FIO2 40%, WILL MONITOR CLOSELY
[2018-06-02] MEDS: PANTOPRAZOLE 40 MG VIAL IV SCH (08:13)
[2018-06-02] MEDS: OLANZAPINE 2.5 MG TABLET PO SCH ×2 (08:13→16:52)
[2018-06-02] MEDS: FERROUS SULFATE (325 MG) 325 MG/TAB TABLET PO SCH (08:14)
[2018-06-02] MEDS: MULTIVIT, IRON, MIN NO. 8, FA 1 TAB PO SCH (08:14)
[2018-06-02] MEDS: ASCORBIC ACID 500 MG TABLET PO SCH (08:14)
--- NOTE | 2018-06-02 08:34 | NUR ---
FERMENTING CELLARS SUPERVISORCHANELL STAUFFER ON DIPRIVAN VOCATION, PATIENT TOLERATED WELL ,NO SOB NOTED, SAT 98%, ABLE TO SQUEEZE BOTH HANDS AND ABLE TO FOLLOW SIMPLE COMMAND ,WILL MONITOR CLOSELY Addendum: 06/02/18 at 0851 by SNEHAL MEDRANO RN ICU R NOTE CORRECTION IN SPELLING
[2018-06-02] MEDS: Potassium Chloride 40 MEQ in IV D5/0.45 NACL 1,000 ML IV PRN ×2 (08:45→20:37)
[2018-06-02 10:26] LABS: ABG BASE EXCESS -2.1 mmol/L; ABG OXYGEN SATURATION 95.8 % (92.0-98.5); ABG PCO2 29.9 mmHg (35.0-45.0); ABG PH 7.464 (7.350-7.450); AaDO2 166.8 mmHg; COHb 0.3 % (0.5-1.5); MetHb 0.4 % (0.0-1.5); O2Hb 95.1 % (94.0-97.0); SITE, ABG Right Radial; VENT MODE, BG SIMV 4 PS12 +5 40%
--- NOTE | 2018-06-02 11:00 | NUR ---
OFFSHORE DIVER NOTE OK TO STOP LEVOPHED BP 100/45 DT ANDONIAN AT BEDSIDE, AWARE PATIENT CONDITION, STILL ON DIPRIVAN DRIP Addendum: 06/02/18 at 1227 by SNEHAL MEDRANO RN BECOME AGITATED AND RESISTLESS TACHYPNEA AND HR 130 RESTART ON DIPRIVAN DRIP ORDERED
--- NOTE | 2018-06-02 12:37 | NUR ---
INDUSTRIAL/ORGANIZATIONAL PSYCHOLOGIST SEEN BY DIETITIAN OK TO INCREASE G TUBE FEEDING, NOW RUNNING AR 35 ML PER HOUR
--- NOTE | 2018-06-02 13:02 | NUR ---
PRINTING MACHINE MECHANIC NOTE SEEN BY DR GAVIN NOTIFIED ABG RESULT ,STATED OK TO CONT THE SAME SETTING OF VENT ORDERED SIMV
[2018-06-02] MEDS: ACETAMINOPHEN 325 MG TABLET PO PRN (14:33)
--- NOTE | 2018-06-02 14:59 | NUR ---
PUBLISHING SYSTEMS ANALYST NOTE UNABLE TO REMOVE SOFT RESTRAIN, PATIENT AT RISK TO REMOVE ETT , WILL F\U
--- NOTE | 2018-06-02 15:00 | NUR ---
SHIFT MGR NOTE T 100.1 ,TYLENOL VIA G TUBE GIVEN , COOLING MEASURE PROVIDED , WILL MONITOR CLOSELY
[2018-06-02] MEDS: MEROPENEM 1 G in IV NS 0.9% 100 ML IV SCH ×2 (16:52→23:51)
--- NOTE | 2018-06-02 17:28 | NUR ---
LIFE INSURANCE SALES NOTE NOTED LOOSE STOOL PER HOSPITAL PROTOCOL COLLECTED FOR C DIF ,SEND SPECIMEN TO LAB
--- NOTE | 2018-06-02 18:46 | NUR ---
FORGE SHOP SUPERVISOR NOTE CONT ON G TUBE FEEDING AT 40 ML PER HOUR, KEEP HOB ELEVATED AT ALL TIME , NO RESIDUAL NOTED , ALSO CONT ON IVF ORDERED AND DIPRIVAN DRIP ORDERED, LEVOPHED DRIP ON HOLD AT THIS TIME BP 92/54 , T 99.3 AT THIS TIME
--- NOTE | 2018-06-02 20:10 | NUR ---
TRAIN CONDUCTOR NOTES RECEIVED PATIENT ORALLY INTUBATED TO THE VENTILATOR ON SIMV MODE,ON MILD SEDATIOBN WITH PROPOFOL,PATIENT AROUSABLE,FOLLOWS SIMPLE COMMANDS,VERY WEAK EXTREMITIES ,WITH VERY MILD HAND PRESS OPERATOR MEAT. WITH ON GOING TUBE FEEDING VIA G TUBE,TOLERATING WELL (GOAL 60 ML/HR) NOW INCREASE TO 50 ML/HR. COMFORT CARE DONE,NEEDS ATTENDED.
[2018-06-02] MEDS: SENNOSIDES 8.6 MG TABLET PO SCH (21:45)
[2018-06-02] MEDS: MIRTAZAPINE 15 MG TABLET PO SCH (21:46)
[2018-06-03] VITALS (66 sets, daily range): BP systolic 82–142; BP diastolic 45–90
--- NOTE | 2018-06-03 | NUR ---
ASSET RECOVERY SPECIALIST NOTES STATUS UNCHANGED,MILDLY SEDATED ,EASILY AROUSABLE,NOT IN ANY DISTRESS,FOLLOWS COMMANDS.
[2018-06-03] MEDS: PROPOFOL 100 ML IV PRN (03:21)
[2018-06-03] MEDS: JEVITY 1.2 CAL 1,000 ML BOTTLE GT PRN (03:22)
[2018-06-03] MEDS: ACETAMINOPHEN 325 MG TABLET PO PRN (03:42)
--- NOTE | 2018-06-03 04:00 | NUR ---
KENO MANAGER NOTES AM CARE DONE,NOTED PASTY ,GREENISH STOOL,REMAINS STABLE,AWAKE,ALERT.OFF LEVOPHED DRIP BUT FEBRILE 100.2. COOLING MEASURES DONE.
--- NOTE | 2018-06-03 04:02 | NUR ---
RT Pt orally intubated remains on [facility] vent settings t/o the night and tolerating well w/ no resp distress noted. ETT secure and patent and sx prn. Addendum: 06/03/18 at 0403 by BASILIO SCHUSTER RT Amended: Links added.
[2018-06-03 04:51] LABS: BASOPHILS % (AUTO) 0.3 % (0.0-2.0); EOSINOPHILS % (AUTO) 2.5 % (0.0-6.0); HEMATOCRIT 25 % (39-51); HEMOGLOBIN 8.5 g/dL (13.5-17.5); LYMPHOCYTES # (AUTO) 2.6 /CMM (0.8-4.8); LYMPHOCYTES % (AUTO) 30.6 % (20.0-44.0); MEAN CORPUSCULAR HGB CONC 34 g/dl (31.0-36.0); MEAN CORPUSCULAR VOLUME 95 fL (80-96); MONOCYTES # (AUTO) 0.5 /CMM (0.1-1.30); MONOCYTES % (AUTO) 5.6 % (2.0-12.0); NEUTROPHILS # (AUTO) 5.2 /CMM (1.8-8.9); PLATELET COUNT (AUTO) 234 /CMM (150-450); RED BLOOD CELL COUNT(AUTO) 2.69 MIL/uL (4.5-6.0); WHITE BLOOD COUNT (AUTO) 8.5 K/uL (4.3-11.0)
--- NOTE | 2018-06-03 06:00 | NUR ---
UNDERWEAR HEMMER NOTES REMAINS STABLE,STILL ON LOW DOSE SEDATION (PROPOFOL DOWN TO 6 MCG),FOR CPAP TRIAL TODAY,TOLERATED SIMV ALL NIGHT. RESPONDS TO VERBAL,OPENS EYES,FOLLOWS SIMPLE COMMANDS.STILL OFF LEVOPHED.TOLERATING FEEDING AT GOAL RATE 60 ML/HR. 0700 REPORT GIVEN TO SIERRA LUA.
[2018-06-03] MEDS: NOREPINEPHRINE 8 MG in IV D5W 500 ML IV PRN (07:32)
[2018-06-03] MEDS: MEROPENEM 1 G in IV NS 0.9% 100 ML IV SCH ×3 (08:05→23:57)
[2018-06-03 08:10] LABS: POTASSIUM 3.8 mmol/L (3.5-5.1)
--- NOTE | 2018-06-03 08:10 | NUR ---
received pt from fast food shift lead, calmly sedated on diprivan at 8mcg, alert, follows simple commands, SR, ST, on the vent, SIMV, sat well, GT to feeding tolerates well, restraints on, v/s stable, no pain, pt turned and repositioned.
--- NOTE | 2018-06-03 08:22 | NUR ---
pt off sedation for CPAP, started on levo SBP 80-84.
[2018-06-03] MEDS: Potassium Chloride 40 MEQ in IV D5/0.45 NACL 1,000 ML IV PRN ×2 (09:13→18:11)
[2018-06-03 09:17] LABS: ABG BASE EXCESS -1.1 mmol/L; ABG OXYGEN SATURATION 96.8 % (92.0-98.5); ABG PCO2 32.3 mmHg (35.0-45.0); ABG PH 7.458 (7.350-7.450); ABG PO2 97.9 mmHg (75.0-100.0); AaDO2 78.1 mmHg; COHb 0.3 % (0.5-1.5); MetHb 0.5 % (0.0-1.5); SITE, ABG Right Radial
[2018-06-03] MEDS: MULTIVIT, IRON, MIN NO. 8, FA 1 TAB PO SCH (09:19)
[2018-06-03] MEDS: OLANZAPINE 2.5 MG TABLET PO SCH ×2 (09:19→17:11)
[2018-06-03] MEDS: FERROUS SULFATE (325 MG) 325 MG/TAB TABLET PO SCH (09:19)
[2018-06-03] MEDS: ASCORBIC ACID 500 MG TABLET PO SCH (09:19)
[2018-06-03] MEDS: PANTOPRAZOLE 40 MG VIAL IV SCH (09:19)
--- NOTE | 2018-06-03 12:26 | NUR ---
pt on CPAP mode, tolerates well, still drowsy, follows commands, SR, on levo at 2mcg, v/s stable, no pain, pt turned and repositioned q2hrs.
--- NOTE | 2018-06-03 14:30 | NUR ---
RT NOTE PATIENT PLACED ON COOL AEROSOL @ 35%. CUFF DEFLATED. AMBU BAG @ BEDSIDE. PATIENT AWAKE/ALERT. NO DISTRESS NOTED AT THIS TIME. WILL MONITOR. NURSE, SIERRA, NOTIFIED AND IS AWARE. SP02 @ 100, HR 99.
--- NOTE | 2018-06-03 14:30 | NUR ---
pt is on cool aerosol at 8L, 35% fio2
--- NOTE | 2018-06-03 15:38 | NUR ---
pt back to CPAP mode because of tachypnea and tachycardia.
--- NOTE | 2018-06-03 15:38 | NUR ---
RT NOTE PLACED PATIENT BACK ON VENTILATION ON CPAP MODE DUE TO SOB. SX DONE, ET TUBE PATENT AND SECURED. CUFF INFLATED VIA CHIEF WHARFINGER. ALARMS ON AND AUDIBLE. NURSE, ANA PAULA ESQUIVEL. WILL CONTINUE TO MONITOR.
--- NOTE | 2018-06-03 16:30 | NUR ---
pt is resting in the bed, SR, on levo at 2mcg, on CPAP mode tolerating well, v/s stable, no pain, pt cleaned, changed and repositioned q2hrs.
--- NOTE | 2018-06-03 19:15 | NUR ---
ICU/RN RECEIVED PT AWAKE ALERT,TURNS HEAD TOWARDS SPEAKER,DOES NOT FOLLOW COMMANDS.ON CPAP VIA ORAL ETT W/ RESP RATE 13-21/MIN.SUCTIONED FOR SCANT AMT PALE YELLOW SECRETIONS.ON 30%FI02 SAT 98%.RECEIVING TF AT 60ML/HR,NO RESIDUAL OBTAINED.
[2018-06-03] MEDS: MIRTAZAPINE 15 MG TABLET PO SCH (21:28)
[2018-06-03] MEDS: SENNOSIDES 8.6 MG TABLET PO SCH (21:28)
[2018-06-04] VITALS (30 sets, daily range): BP systolic 102–140; BP diastolic 58–76
[2018-06-04] MEDS: JEVITY 1.2 CAL 1,000 ML BOTTLE GT PRN (01:17)
[2018-06-04] MEDS: ACETAMINOPHEN 325 MG TABLET PO PRN (02:56)
--- NOTE | 2018-06-04 02:56 | NUR ---
ICU/RN. TYLENOL 650MG GIVEN VIA GT FOR TEMP 100.4
[2018-06-04] MEDS: Potassium Chloride 40 MEQ in IV D5/0.45 NACL 1,000 ML IV PRN (05:03)
[2018-06-04 05:26] LABS: CALCIUM, SERUM 7.9 mg/dL (8.5-10.1); CREATININE 0.9 mg/dL (0.6-1.3); POTASSIUM 3.6 mmol/L (3.5-5.1)
[2018-06-04 05:38] LABS: BASOPHILS % (AUTO) 0.3 % (0.0-2.0); EOSINOPHILS % (AUTO) 2.5 % (0.0-6.0); HEMATOCRIT 24 % (39-51); HEMOGLOBIN 8.3 g/dL (13.5-17.5); LYMPHOCYTES % (AUTO) 25.8 % (20.0-44.0); MEAN CORPUSCULAR HGB CONC 34 g/dl (31.0-36.0); MEAN CORPUSCULAR VOLUME 94 fL (80-96); MONOCYTES # (AUTO) 0.7 /CMM (0.1-1.30); MONOCYTES % (AUTO) 9.3 % (2.0-12.0); NEUTROPHILS # (AUTO) 4.8 /CMM (1.8-8.9); NEUTROPHILS % (AUTO) 62.1 % (43.0-81.0); PLATELET COUNT (AUTO) 255 /CMM (150-450); RED BLOOD CELL COUNT(AUTO) 2.59 MIL/uL (4.5-6.0); WHITE BLOOD COUNT (AUTO) 7.7 K/uL (4.3-11.0)
--- NOTE | 2018-06-04 07:13 | NUR ---
ICU/RN. REPORT AND CARE OF PT.GIVEN TO SIERRA LUA. PT. TOLERATED CPAP.
[2018-06-04] MEDS: MEROPENEM 1 G in IV NS 0.9% 100 ML IV SCH ×3 (08:07→23:33)
[2018-06-04] MEDS: FERROUS SULFATE (325 MG) 325 MG/TAB TABLET PO SCH (08:11)
[2018-06-04] MEDS: PANTOPRAZOLE 40 MG VIAL IV SCH (08:11)
[2018-06-04] MEDS: ASCORBIC ACID 500 MG TABLET PO SCH (08:11)
[2018-06-04] MEDS: MULTIVIT, IRON, MIN NO. 8, FA 1 TAB PO SCH (08:11)
[2018-06-04] MEDS: OLANZAPINE 2.5 MG TABLET PO SCH ×2 (08:11→16:31)
--- NOTE | 2018-06-04 08:50 | NUR ---
received pt from overnight caregiver, alert, drowsy, follows simple commands, SR, on CPAP mode tolerates well, lungs congested, non pitting edema BL hands, GT to feeding tolerates well, restraints on, good urine output, v/s stable, no pain, pt turned and repositioned.
[2018-06-04 12:21] LABS: ABG BASE EXCESS -0.2 mmol/L; ABG OXYGEN SATURATION 92.5 % (92.0-98.5); ABG PCO2 28.8 mmHg (35.0-45.0); ABG PH 7.505 (7.350-7.450); ABG PO2 63.8 mmHg (75.0-100.0); AaDO2 152.3 mmHg; COHb 0.3 % (0.5-1.5); MetHb 0.2 % (0.0-1.5); SITE, ABG Right Radial; VENT MODE, BG 35% COOL AEROSOL
[2018-06-04] MEDS: MORPHINE SULFATE INJ 4 MG/ML DISP.SYRIN IV PRN (16:30)
--- NOTE | 2018-06-04 16:44 | NUR ---
pt tachypneic and tachycardic, lethargic, follows simple commands. back to AC mode, pt cleaned, changed and repositioned, tolerates feeding, good urine output.
--- NOTE | 2018-06-04 19:15 | NUR ---
ICU/RN. RECEIVED PT ON VENT VIA ORAL ET.AWAKE AND ORIENTED TO NAME,RE-ORIENTED TO TIME, PLACE AND SURROUNDINGS. SAT 93-95% 0N FI02 30%.MONITOR SHOWS SINUS TACH.
--- NOTE | 2018-06-04 20:00 | NUR ---
ICU/RN RECEIVED PT YELLING,RESTLESS AND COMBATIVE.SITTER AT BEDSIDE,PT KEEPS TAKING OFF OXYGEN.SO BILATERAL SOFT WRIST RESTRAINTS RE-APPLIED.PT UNCOOPERATIVE. Addendum: 06/04/18 at 2215 by DUNCAN CASTRO RN WRONG PT.
[2018-06-04] MEDS: SENNOSIDES 8.6 MG TABLET PO SCH (21:32)
[2018-06-04] MEDS: MIRTAZAPINE 15 MG TABLET PO SCH (22:00)
[2018-06-05] VITALS (37 sets, daily range): BP systolic 88–136; BP diastolic 49–75
[2018-06-05] MEDS: Potassium Chloride 40 MEQ in IV D5/0.45 NACL 1,000 ML IV PRN ×3 (00:30→22:48)
--- NOTE | 2018-06-05 00:30 | NUR ---
ICU/RN SUCTIONED FOR MODERATE THICK PALE YELLOW SECRETIONS.TOLERATING TUBE FEEDING W/OUT RESIDUAL.VITAL SIGNS STABLE.
[2018-06-05 04:52] LABS: BASOPHILS % (AUTO) 0.2 % (0.0-2.0); EOSINOPHILS % (AUTO) 2.5 % (0.0-6.0); HEMATOCRIT 26 % (39-51); HEMOGLOBIN 8.9 g/dL (13.5-17.5); LYMPHOCYTES # (AUTO) 2.1 /CMM (0.8-4.8); LYMPHOCYTES % (AUTO) 30.1 % (20.0-44.0); MEAN CORPUSCULAR HGB CONC 34 g/dl (31.0-36.0); MEAN CORPUSCULAR VOLUME 94 fL (80-96); MONOCYTES # (AUTO) 0.7 /CMM (0.1-1.30); MONOCYTES % (AUTO) 9.5 % (2.0-12.0); NEUTROPHILS % (AUTO) 57.7 % (43.0-81.0); PLATELET COUNT (AUTO) 333 /CMM (150-450); RED BLOOD CELL COUNT(AUTO) 2.79 MIL/uL (4.5-6.0)
[2018-06-05 05:04] LABS: CALCIUM, SERUM 8.3 mg/dL (8.5-10.1); CREATININE 0.9 mg/dL (0.6-1.3); POTASSIUM 4.2 mmol/L (3.5-5.1)
--- NOTE | 2018-06-05 07:15 | NUR ---
RN INITIAL NOTES RECEIVED PT EYES OPEN. INTUBATED, ON VENT. NO RESPIRATORY DISTRESS NOTED. NO SIGNS OF PAIN NOTED. RIJ TLC IN PLACE. IVF INFUSING. GT IN PLACE. TOLERATING GTF WELL. FC IN PLACE. NO HEMATURIA NOTED. BLE ELEVATED. PT COMFORTABLE. WILL MONITOR.
[2018-06-05] MEDS: MEROPENEM 1 G in IV NS 0.9% 100 ML IV SCH ×2 (08:34→16:24)
[2018-06-05] MEDS: ASCORBIC ACID 500 MG TABLET PO SCH (08:35)
[2018-06-05] MEDS: OLANZAPINE 2.5 MG TABLET PO SCH ×2 (08:35→16:24)
[2018-06-05] MEDS: PANTOPRAZOLE 40 MG VIAL IV SCH (08:35)
[2018-06-05] MEDS: MULTIVIT, IRON, MIN NO. 8, FA 1 TAB PO SCH (08:35)
[2018-06-05] MEDS: FERROUS SULFATE (325 MG) 325 MG/TAB TABLET PO SCH (08:35)
[2018-06-05] MEDS: JEVITY 1.2 CAL 1,000 ML BOTTLE GT PRN (12:01)
--- NOTE | 2018-06-05 12:30 | NUR ---
RN NOTES 0911 SEEN AND EXAMINED BY DR SONG. MD AWARE OF LAB VALUES AND CXR RESULT. PT AWAKE. REMAINS INTUBATED, ON VENT. NO RESPIRATORY DISTRESS NOTED. NO SOB NOTED. WILL MONITOR 1230 SEEN AND EXAMINED BY DR HUNG. PT FAILED WEANING YESTERDAY. PER , WILL KEEP PT ON AC MODE. WILL MONITOR.
[2018-06-05] MEDS: MORPHINE SULFATE INJ 4 MG/ML DISP.SYRIN IV PRN (18:30)
--- NOTE | 2018-06-05 18:46 | NUR ---
RN CLOSING NOTES PT REMAINS STABLE. NO SIGNIFICANT CHANGE NOTED. NO RESPIRATORY DISTRESS NOTED. VS WNL. TX PROVIDED ORDERED. KEPT CLEAN AND DRY. REPOSITIONED Q2. WILL ENDORSE FOR CONTINUITY OF CARE.
--- NOTE | 2018-06-05 19:30 | NUR ---
IT HELP DESK ASSOCIATE INITIAL SHIFT NOTES RECEIVED PATIENT IN BED, AWAKE, ALERT AND ORIENTED X1-2, ABLE TO NOD/YES NO TO QUESTIONS. ORALLY INTUBATED, ETT 7.5, 23 CM @ LIP LINE, ON MECHANICAL VENTILATION AT PRESCRIBED SETTINGS, TOLERATING WELL, NO RESPIRATORY DISTRESS NOTED AT THIS TIME. RIJ TLC PATENT AND INTACT, ALL PORTS FLUSHED WITH NS, ONGOING IV FLUIDS INFUSING AT PRESCRIBED RATE, LINE FREE FROM ANY S/S OF INFILTRATION OR PHLEBITIS. KIRKLAND CATHETER DRAINING CLOUDY YELLOW URINE WITH SEDIMENTS VIA GRAVITY. BILATERAL SOFT WRIST RESTRAINTS IN PLACE, REMOVED TEMPORARILY, SKIN ASSESSED FOR CIRCULATION, RESTRAINTS REAPPLIED. CALL LIGHT WITHIN EASY REACH, BED IN LOWEST AND LOCKED POSITION. WILL CONTINUE TO CLOSELY MONITOR
[2018-06-05] MEDS: SENNOSIDES 8.6 MG TABLET PO SCH (21:29)
[2018-06-05] MEDS: ACETAMINOPHEN 325 MG TABLET PO PRN (21:29)
[2018-06-05] MEDS: MIRTAZAPINE 15 MG TABLET PO SCH (21:29)
[2018-06-06] VITALS (52 sets, daily range): BP systolic 83–128; BP diastolic 51–73
[2018-06-06] MEDS: MEROPENEM 1 G in IV NS 0.9% 100 ML IV SCH ×4 (00:14→23:39)
--- NOTE | 2018-06-06 00:56 | NUR ---
FARM EQUIPMENT ENGINE MECHANIC NOTES - SELF EXTUBATION 0056: PATIENT'S VENTILATOR BEEPING. UPON ASSESSMENT, PATIENT NOTED WITH ETT IN LEFT HAND WHILE STILL IN RESTRAINTS, S/P SELF EXTUBATION. PATIENT IMMEDIATELY PLACED ON NONREBREATHER, RT AND CHARGE NURSE CALLED TO BEDSIDE. SPO2 100% WHILE ON NONREBREATHER, WILL MONITOR CLOSELY. ABG DONE, DR ISAAC PAGEBrice. ENDOCRINOLOGY PHYSICIAN NEL MADE AWARE 0130: RECEIVED CALL BACK FROM DR ISAAC, MADE AWARE OF SELF EXTUBATION AND LATEST BLOOD GAS LEVELS. PER DR ISAAC, NO NEW ORDERS AT THIS TIME UNLESS PATIENT DEVELOPS RESPIRATORY DISTRESS. WILL CONTINUE TO CLOSELY MONITOR THE PATIENT
--- NOTE | 2018-06-06 00:56 | NUR ---
RT NOTES PT SELF EXTUBATED. PLACED PT ON 100% NONREBREATHER. ABG OBTAINED AND GIVEN TO RN. NO DISTRESS OR SOB NOTED. WILL CONT. TO MONITOR PT CLOSELY.
--- NOTE | 2018-06-06 03:15 | NUR ---
DAIRY BACTERIOLOGIST NOTES PATIENT NT SUCTIONED BY RT KEESHA, NOTED WITH SMALL AMOUNT OF THICK, PINK TINGED SPUTUM, BACK UP TO 100% SPO2 AFTER SUCTIONING. WILL CONTINUE CLOSE MONITORING
[2018-06-06 04:27] LABS: BASOPHILS % (AUTO) 0.4 % (0.0-2.0); EOSINOPHILS % (AUTO) 3.3 % (0.0-6.0); HEMATOCRIT 26 % (39-51); LYMPHOCYTES # (AUTO) 2.3 /CMM (0.8-4.8); MEAN CORPUSCULAR HGB CONC 35 g/dl (31.0-36.0); MEAN CORPUSCULAR VOLUME 94 fL (80-96); MONOCYTES # (AUTO) 0.6 /CMM (0.1-1.30); MONOCYTES % (AUTO) 11.5 % (2.0-12.0); NEUTROPHILS # (AUTO) 2.3 /CMM (1.8-8.9); NEUTROPHILS % (AUTO) 42.8 % (43.0-81.0); PLATELET COUNT (AUTO) 362 /CMM (150-450); RED BLOOD CELL COUNT(AUTO) 2.77 MIL/uL (4.5-6.0); WHITE BLOOD COUNT (AUTO) 5.4 K/uL (4.3-11.0)
[2018-06-06 04:47] LABS: CALCIUM, SERUM 8.5 mg/dL (8.5-10.1); CREATININE 0.9 mg/dL (0.6-1.3); POTASSIUM 4.3 mmol/L (3.5-5.1)
--- NOTE | 2018-06-06 07:00 | NUR ---
CROP RESEARCH SCIENTIST CLOSING NOTES PATIENT RESTING COMFORTABLY IN BED. TOLERATING O2 VIA NC. BEDSIDE REPORT GIVEN TO DAYSHIFT NURSE.
[2018-06-06] MEDS: JEVITY 1.2 CAL 1,000 ML BOTTLE GT PRN (07:22)
[2018-06-06] MEDS: FERROUS SULFATE (325 MG) 325 MG/TAB TABLET PO SCH (08:57)
[2018-06-06] MEDS: MULTIVIT, IRON, MIN NO. 8, FA 1 TAB PO SCH (08:57)
[2018-06-06] MEDS: PANTOPRAZOLE 40 MG VIAL IV SCH (08:57)
[2018-06-06] MEDS: OLANZAPINE 2.5 MG TABLET PO SCH ×2 (08:57→16:20)
[2018-06-06] MEDS: ASCORBIC ACID 500 MG TABLET PO SCH (08:57)
[2018-06-06 09:35] LABS: ABG BASE EXCESS 3.6 mmol/L; ABG OXYGEN SATURATION 96.9 % (92.0-98.5); ABG PCO2 35.7 mmHg (35.0-45.0); ABG PH 7.495 (7.350-7.450); ABG PO2 93.2 mmHg (75.0-100.0); AaDO2 150.9 mmHg; COHb 0.3 % (0.5-1.5); MetHb 0.2 % (0.0-1.5); O2Hb 96.4 % (94.0-97.0); SITE, ABG Right Radial; VENT MODE, BG nasal cannula
--- NOTE | 2018-06-06 20:00 | NUR ---
RN NOTE RECEIVED PATIENT IN THE BED, ALERT/ORIENTED X 1, NON-REBREATHER 15L/MIN, NO RESPIRATORY DISTRESS NOTED, ALL SAFETY MEASURES TAKEN, WILL CONTINUE TO MONITOR PATIENT
[2018-06-06] MEDS: SENNOSIDES 8.6 MG TABLET PO SCH (21:21)
[2018-06-06] MEDS: MIRTAZAPINE 15 MG TABLET PO SCH (21:21)
[2018-06-07] VITALS (28 sets, daily range): BP systolic 72–117; BP diastolic 32–70
[2018-06-07] MEDS: JEVITY 1.2 CAL 1,000 ML BOTTLE GT PRN ×2 (00:11→19:35)
[2018-06-07 04:47] LABS: BASOPHILS % (AUTO) 0.3 % (0.0-2.0); EOSINOPHILS % (AUTO) 2.7 % (0.0-6.0); HEMATOCRIT 29 % (39-51); HEMOGLOBIN 9.9 g/dL (13.5-17.5); LYMPHOCYTES # (AUTO) 3.9 /CMM (0.8-4.8); LYMPHOCYTES % (AUTO) 49.9 % (20.0-44.0); MEAN CORPUSCULAR HGB CONC 34 g/dl (31.0-36.0); MEAN CORPUSCULAR VOLUME 93 fL (80-96); MONOCYTES # (AUTO) 0.9 /CMM (0.1-1.30); NEUTROPHILS # (AUTO) 2.7 /CMM (1.8-8.9); NEUTROPHILS % (AUTO) 35.1 % (43.0-81.0); PLATELET COUNT (AUTO) 475 /CMM (150-450); RED BLOOD CELL COUNT(AUTO) 3.12 MIL/uL (4.5-6.0); WHITE BLOOD COUNT (AUTO) 7.8 K/uL (4.3-11.0)
[2018-06-07 05:01] LABS: CALCIUM, SERUM 8.7 mg/dL (8.5-10.1); CREATININE 0.8 mg/dL (0.6-1.3); POTASSIUM 4.1 mmol/L (3.5-5.1)
[2018-06-07] MEDS: FERROUS SULFATE (325 MG) 325 MG/TAB TABLET PO SCH (08:52)
[2018-06-07] MEDS: MULTIVIT, IRON, MIN NO. 8, FA 1 TAB PO SCH (08:52)
[2018-06-07] MEDS: PANTOPRAZOLE 40 MG VIAL IV SCH (08:52)
[2018-06-07] MEDS: MEROPENEM 1 G in IV NS 0.9% 100 ML IV SCH (08:52)
[2018-06-07] MEDS: OLANZAPINE 2.5 MG TABLET PO SCH ×2 (08:52→17:42)
[2018-06-07] MEDS: ASCORBIC ACID 500 MG TABLET PO SCH (08:53)
--- NOTE | 2018-06-07 10:00 | NUR ---
DR GAVIN AT THE BEDSIDE. ON TO CHANGE TO 6L NC.
[2018-06-07 12:17] LABS: ABG BASE EXCESS 6.8 mmol/L; ABG OXYGEN SATURATION 95.6 % (92.0-98.5); ABG PCO2 39.6 mmHg (35.0-45.0); ABG PH 7.503 (7.350-7.450); ABG PO2 81.4 mmHg (75.0-100.0); AaDO2 194.4 mmHg; COHb 0.3 % (0.5-1.5); MetHb 0.7 % (0.0-1.5); O2Hb 94.6 % (94.0-97.0); SITE, ABG Left Radial; VENT MODE, BG NASAL CANNULA
[2018-06-07] MEDS: ACETYLCYSTEINE 10% SOLN 400 MG/4 ML VIAL NEB SCH ×3 (13:28→23:06)
--- NOTE | 2018-06-07 18:00 | NUR ---
PT REMAINS STABLE TON 6L. VSS.
[2018-06-07] MEDS: SENNOSIDES 8.6 MG TABLET PO SCH (22:57)
[2018-06-07] MEDS: MIRTAZAPINE 15 MG TABLET PO SCH (22:57)
[2018-06-08] VITALS (11 sets, daily range): BP systolic 79–101; BP diastolic 52–63
--- NOTE | 2018-06-08 03:45 | NUR ---
GAVE REPORT TO ILANA LUA FOR CONTINUITY OF CARE.
--- NOTE | 2018-06-08 04:25 | NUR ---
TRANSPORTED PT TO [facility] 111-2 IN NO ACUTE DISTRESS IN BED. PT TOLERATED TRANSFER WELL. TRANSFERRED CARE TO ILANA LUA FOR CONTINUITY OF CARE.
--- NOTE | 2018-06-08 06:54 | NUR ---
RN NOTES PT REMAINED IN STABLE CONDITION. NO ACUTE CHANGES THROUGHOUT SHIFT. ALL NEEDS ANTICIPATED. SAFETY MEASURES AND ASPIRATION PRECAUTION OBSERVED AT ALL TIMES. ENDORSED TO PM SHIFT RN FOR AMEYA
[2018-06-08 07:23] LABS: BASOPHILS % (AUTO) 0.4 % (0.0-2.0); EOSINOPHILS % (AUTO) 3.4 % (0.0-6.0); HEMATOCRIT 31 % (39-51); HEMOGLOBIN 10.2 g/dL (13.5-17.5); LYMPHOCYTES # (AUTO) 3.4 /CMM (0.8-4.8); LYMPHOCYTES % (AUTO) 43.5 % (20.0-44.0); MEAN CORPUSCULAR HGB CONC 34 g/dl (31.0-36.0); MEAN CORPUSCULAR VOLUME 94 fL (80-96); MONOCYTES # (AUTO) 0.7 /CMM (0.1-1.30); MONOCYTES % (AUTO) 9.4 % (2.0-12.0); NEUTROPHILS # (AUTO) 3.4 /CMM (1.8-8.9); NEUTROPHILS % (AUTO) 43.3 % (43.0-81.0); PLATELET COUNT (AUTO) 538 /CMM (150-450); RED BLOOD CELL COUNT(AUTO) 3.27 MIL/uL (4.5-6.0); WHITE BLOOD COUNT (AUTO) 7.9 K/uL (4.3-11.0)
[2018-06-08] MEDS: ACETYLCYSTEINE 10% SOLN 400 MG/4 ML VIAL NEB SCH ×2 (07:29→15:30)
--- NOTE | 2018-06-08 07:30 | NUR ---
[facility] RN NOTE PATIENT IN BED SLEEPING NO S/S OF DISTRESS OR DISCOMFORT. PATIENT SLEEPING, BUT EASILY AWAKES TO TOUCH AND SOUNDS, PATIENT ON GTUBE FEEDING 60 ML/ HR. DRESSING INTACT ON R TLC, PATENT. PATIENT IS CURRENTLY SINUS TACHY 110 ON MONITOR. RN WILL CONTINUE TO MONITOR. PATIENT TURNED AND REPOSITIONED FOR COMFORT. BED IN LOWEST LOCKED POSITION, SIDE RAILS UP X 3. CALL LIGHT AT WITHIN HAND.
[2018-06-08 07:36] LABS: CALCIUM, SERUM 8.7 mg/dL (8.5-10.1); CREATININE 0.7 mg/dL (0.6-1.3); MAGNESIUM 2.3 mg/dL (1.8-2.4); PHOSPHORUS 2.9 mg/dL (2.5-4.9)
[2018-06-08] MEDS: PANTOPRAZOLE 40 MG VIAL IV SCH (09:40)
[2018-06-08] MEDS: FERROUS SULFATE (325 MG) 325 MG/TAB TABLET PO SCH (09:41)
[2018-06-08] MEDS: MULTIVIT, IRON, MIN NO. 8, FA 1 TAB PO SCH (09:41)
[2018-06-08] MEDS: ASCORBIC ACID 500 MG TABLET PO SCH (09:41)
[2018-06-08] MEDS: OLANZAPINE 2.5 MG TABLET PO SCH ×2 (09:44→17:00)
[2018-06-08] MEDS: PROSOURCE / PROSTAT (PYXIS) 30 ML UDC GT SCH ×2 (14:11→17:00)
--- NOTE | 2018-06-08 17:18 | NUR ---
[facility] RN NOTE PATIENT D/C AND TRANSFER OF CARE GIVEN OVER TO TRANSFER TEAM. REPORT GIVEN TO [facility] AT [facility]. PATIENT STABLE NO S/S OF DISTRESS/ REPSIRATORY DISTRESS/ PAIN/ DISCOMFORT. PATIENT 110 ON MONITOR AT PATIENT BASELINE.
== END 2018-06-08 17:16 | DRG 720 ==
LOC: ER 02:43 → ICU 04:34 → TELE-TD 06-08 04:05
PROVIDERS: ADMIT Registered Nurse; ATTEND Registered Nurse
PROC: B548ZZA Ultrasonography of Superior Vena Cava, Guidance (ICD-10-PCS; principal; 2018-05-30)
PROC: 5A1955Z Respiratory Ventilation, Greater than 96 Consecutive Hours (ICD-10-PCS; principal; 2018-05-30)
PROC: 0BH17EZ Insertion of Endotracheal Airway into Trachea, Via Natural or Artificial Opening (ICD-10-PCS; principal; 2018-05-30)
PROC: 02HV33Z Insertion of Infusion Device into Superior Vena Cava, Percutaneous Approach (ICD-10-PCS; principal; 2018-05-30)
DX: A41.9 Sepsis, unspecified organism (principal); J96.01 Acute respiratory failure with hypoxia; K72.00 Acute and subacute hepatic failure without coma; N17.0 Acute kidney failure with tubular necrosis; R65.21 Severe sepsis with septic shock; E43 Unspecified severe protein-calorie malnutrition; J15.9 Unspecified bacterial pneumonia; G92 Toxic encephalopathy; J84.9 Interstitial pulmonary disease, unspecified; L89.153 Pressure ulcer of sacral region, stage 3; R13.10 Dysphagia, unspecified; G93.89 Other specified disorders of brain; B96.20 Unspecified Escherichia coli [E. coli] as the cause of diseases classified elsewhere; N39.0 Urinary tract infection, site not specified; E86.0 Dehydration; N18.9 Chronic kidney disease, unspecified; Z86.19 Personal history of other infectious and parasitic diseases; E87.8 Other disorders of electrolyte and fluid balance, not elsewhere classified; K58.9 Irritable bowel syndrome, unspecified; R62.7 Adult failure to thrive; D63.1 Anemia in chronic kidney disease; E86.1 Hypovolemia; F20.0 Paranoid schizophrenia; E87.6 Hypokalemia; E87.0 Hyperosmolality and hypernatremia; E88.09 Other disorders of plasma-protein metabolism, not elsewhere classified; Z68.1 Body mass index [BMI] 19.9 or less, adult; Z16.12 Extended spectrum beta lactamase (ESBL) resistance; R73.9 Hyperglycemia, unspecified; I12.9 Hypertensive chronic kidney disease with stage 1 through stage 4 chronic kidney disease, or unspecified chronic kidney disease; Z93.1 Gastrostomy status
CPT/HCPCS: 31720; 36415; 36600; 70450-TC; 71045-TC; 80048-TC; 80053-TC; 80061-TC; 80076-TC; 80202-TC; 81000-TC; 82803-TC; 83605-TC; 83735-TC; 84100-TC; 84134-TC; 84443-TC; 84484-TC; 85025-TC; 85730-TC; 87040-TC; 87070-TC; 87081-TC; 87086-TC; 87186-TC; 87400; 87806; 93307-TC; 94002-TC; 94003-TC; 94640-TC; 94760-TC; 99082-TC; A4216; A4217; A4349; A4606; A6253; A6402; A6403; C1751; C9113; G0378; J0692; J2185; J2250; J2270; J2543; J3370; J3480; J3490; J7030; J7050; J7060; Z7610

== ENCOUNTER 2019-01-06 12:56 | Inpatient (IN) | payer MEDICAID ==
[~2019-01-06] VITALS: Ht 182.9 cm; Wt 59.9 kg
[2019-01-06] VITALS (20 sets, daily range): BP systolic 78–103; BP diastolic 42–62
[~2019-01-06 12:56] MED LIST changes: -ACET-2605 PO; +ACET-868 GT; -ACET-868 PO; +ASCO500T9 GT; -ASCO500T9 PO; -ATEN25TA PO; +BISA10SU11 RC; -BISA10SU8 RC; +FERR325T23 GT; -FERR325T23 PO; +LACT-96 GT; -LACT-96 PO; +MAGN400O6 GT; -MAGN400O6 PO; +MULT-447 GT; -MULT-447 PO; +PANT40TA4 GT; -PANT40TA4 PO; +SENN-168 GT; -SENN-168 PO
--- NOTE | 2019-01-06 13:00 | NUR ---
PT NUHA FROM [facility] FOR ABNORMAL LABS; PT AAOX1, PT ON MONTIOR, -SOB, NAD NOTED, VSS ,PENDING MD TYLER
[2019-01-06] MEDS ORDERED: IV NS 0.9% 1,000 ML BAG IV ONE ×2 (14:30→16:30)
[2019-01-06 14:33] LABS: BASOPHILS % (AUTO) 0.3 % (0.0-2.0); EOSINOPHILS % (AUTO) 1.1 % (0.0-6.0); HEMATOCRIT 39 % (39-51); HEMOGLOBIN 12.1 g/dL (13.5-17.5); LYMPHOCYTES # (AUTO) 4.1 /CMM (0.8-4.8); LYMPHOCYTES % (AUTO) 26.1 % (20.0-44.0); MEAN CORPUSCULAR HGB CONC 31 g/dl (31.0-36.0); MEAN CORPUSCULAR VOLUME 100 fL (80-96); MONOCYTES # (AUTO) 1.1 /CMM (0.1-1.30); MONOCYTES % (AUTO) 6.8 % (2.0-12.0); NEUTROPHILS # (AUTO) 10.4 /CMM (1.8-8.9); NEUTROPHILS % (AUTO) 65.7 % (43.0-81.0); PLATELET COUNT (AUTO) 123 /CMM (150-450); RED BLOOD CELL COUNT(AUTO) 3.87 MIL/uL (4.5-6.0); WHITE BLOOD COUNT (AUTO) 15.8 K/uL (4.3-11.0)
[2019-01-06 14:52] LABS: ALANINE AMINOTRANSFERASE 15 U/L (12-78); ALBUMIN 2.5 g/dL (3.4-5.0); ALKALINE PHOSPHATASE 102 U/L (46-116); ASPARTATE AMINOTRANSFERASE 17 U/L (15-37); B-TYPE NATRIURETIC PEPTIDE 312 PG/ML (0-125); BILIRUBIN,DIRECT 0.2 mg/dL (0.0-0.2); BILIRUBIN,TOTAL 0.6 mg/dL (0.2-1.0); CALCIUM, SERUM 9.2 mg/dL (8.5-10.1); CARBON DIOXIDE 31 mmol/L (21-32); CHLORIDE 125 mmol/L (98-107); CREATININE 2.5 mg/dL (0.6-1.3); GLUCOSE 104 mg/dL (74-106); POTASSIUM 3.5 mmol/L (3.5-5.1); TOTAL PROTEIN, SERUM 9.4 g/dL (6.4-8.2)
[2019-01-06 14:54] LABS: UREA NITROGEN, BLOOD 104 mg/dL (7-18)
[2019-01-06 14:55] LABS: SODIUM SERUM 166 mmol/L (136-145)
[2019-01-06 15:25] LABS: BILIRUBIN,URINE Negative (NEGATIVE); BLOOD, URINE Trace-intact Ery/uL (NEGATIVE); COLOR,URINE Yellow (YELLOW); KETONES,URINE Negative (NEGATIVE); LEUKOCYTE ESTERASE ,URINE Large (NEGATIVE); NITRITE, URINE Negative (NEGATIVE); PROTEIN,URINE 30 mg/dl (NEGATIVE); UGLUCOSE Negative (NEGATIVE); UROBILINOGEN,URINE 0.2 EU/dL (0.2)
[2019-01-06 15:30] LABS: APPEARANCE,URINE CLOUDY (CLEAR); BACTERIA,URINE Moderate /HPF (None Seen); SQUAMOUS EPITHELIAL CELL,UR Moderate /HPF (None Seen); WBC,URINE 81-100 /HPF (0-3)
[2019-01-06] MEDS ORDERED: LACT-96 GT (15:57)
[2019-01-06] MEDS ORDERED: ZOLPIDEM TARTRATE 5 MG TABLET PO PRN (17:00)
[2019-01-06] MEDS ORDERED: ONDANSETRON HCL/PF 4 MG/2 ML VIAL IVP PRN (17:00)
[2019-01-06] MEDS ORDERED: MORPHINE SULFATE INJ 2 MG/ML DISP.SYRIN IV PRN (17:00)
[2019-01-06] MEDS ORDERED: PIPERACILLIN /TAZOBACTAM 3.375 G in IV D5W 50 ML IV ONE (17:00)
[2019-01-06] MEDS ORDERED: ACETAMINOPHEN 325 MG TABLET PO PRN (17:00)
[2019-01-06] MEDS ORDERED: HYDROCODONE/APAP 5/325MG 1 EACH TABLET PO PRN (17:00)
[2019-01-06] MEDS ORDERED: MAGNESIUM HYDROXIDE 30 ML UDC PO PRN (17:00)
[2019-01-06] MEDS ORDERED: IV NS 0.9% 500 ML BAG IV ONE (17:00)
[2019-01-06] MEDS ORDERED: MAG HYDROX/AL HYDROX/SIMETH 30 ML UDC PO PRN (17:00)
[2019-01-06] MEDS ORDERED: FEE PK DOSING 1 MIN EA MC ONE (17:28)
--- NOTE | 2019-01-06 17:28 | NUR ---
CALLED FOR BED, TURNED MOVE SHEET, GOING TO BED 254
[2019-01-06] MEDS ORDERED: NA PHOS,M-B/NA PHOS,DI-BA 1 EA ENEMA RC PRN (17:30)
[2019-01-06] MEDS ORDERED: INSULIN REGULAR, HUMAN 100 UNIT/ML 3 ML VIAL SQ PRN (17:30)
[2019-01-06] MEDS ORDERED: DEXTROSE 50%-WATER 50 ML DISP.SYRIN IV PRN (17:30)
[2019-01-06] MEDS ORDERED: MAGNESIUM HYDROXIDE 30 ML UDC GT PRN (17:30)
[2019-01-06] MEDS ORDERED: BISACODYL SUPP (10 MG) 10 MG/SUPP.RECT SUPP.RECT RC PRN (17:30)
--- NOTE | 2019-01-06 17:31 | NUR ---
REPORT GIVEN TO SIERRA LUA FOR AMEYA; PT WILL BE TRANSPORTED TO ICU VIA ACLS PROTOCOL
[2019-01-06] MEDS ORDERED: VANCOMYCIN 0.75 GM in IV D5W 250 ML IV SCH (18:00)
[2019-01-06] MEDS: BLOOD SUGAR DIAGNOSTIC 1 EACH STRIP IN SCH (18:18)
[2019-01-06] MEDS: IV D5W 1,000 ML IV PRN (18:33)
--- NOTE | 2019-01-06 19:45 | NUR ---
ICU/BOOKING CLERK RECEIVED REPORT FROM DAY NURSE. SEE NURSING FLOW SHEET FOR ASSESSMENT AND ANY SKIN ISSUES THAT PT MAY HAVE ALONG WITH THE INTERVENTIONS TO EACH OF THESE. PT HAS IV FLOWSHEET OF DRIPS ALONG WITH TITRATIONS. PT WAS TURNED AND REPOSITIONED FOR COMFORT AND CARE. NO ACUTE DISTRESS SEEN AT THIS TIME. WILL MONITOR THIS PT.
[2019-01-06] MEDS: PIPERACILLIN /TAZOBACTAM 2.25 G in IV D5W 50 ML IV SCH (20:03)
[2019-01-06] MEDS ORDERED: NOREPINEPHRINE 4 MG/4 ML AMPUL IV ONE (21:03)
[2019-01-06] MEDS: NOREPINEPHRINE 8 MG in IV D5W 500 ML IV PRN (21:06)
--- NOTE | 2019-01-06 21:10 | NUR ---
ICU/MASH TUB COOKER PT'S BLOOD PRESSURE IS 70'S THEN CYCLED AGAIN TO 79/51. NOTIFIED CHARGE NURSE WHO THEN STATED LEVO AT 2 MCG. WILL CONTINUE TO MONITOR THIS PT AND HIS BLOOD PRESSURE.
--- NOTE | 2019-01-06 21:19 | NUR ---
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 Has no next of kin or family on file , requires max assist with adl's. Currently on 7days bedhold with plan to dc back to SNF. Addendum: 01/06/19 at 2120 by NIRAV GALLOWAY RN Amended: Links added.
[2019-01-06] MEDS: ENOXAPARIN SODIUM 30 MG/0.3 ML DISP.SYRIN SQ SCH (21:28)
[2019-01-06] MEDS: SENNOSIDES 8.6 MG TABLET GT SCH (22:00)
--- NOTE | 2019-01-06 22:10 | NUR ---
ICU/EXHIBITIONS AND COLLECTIONS MANAGER PT GIVEN PM CARE, NO BM SEEN. PT REMAINS ON ROOM AIR WITH SATURATION AT 98-100%. PT WAS TURNED AND REPOSITIONED FOR COMFORT AND CARE. WILL CONTINUE TO MONITOR THIS PT. NO ACUTE DISTRESS SEEN AT THIS TIME.
--- NOTE | 2019-01-06 23:05 | NUR ---
ICU/DOCUMENTATION WRITER PT'S BLOOD PRESSURE IS IN THE 70'S THEN CYCLED AGAIN TO 76/46. NOTIFIED CHARGE NURSE WHO THEN INCREASED THE LEVO TO 4 MCG FROM 2. WILL CONTINUE TO MONITOR THIS PT AND HIS BLOOD PRESSURE.
--- NOTE | 2019-01-06 23:30 | NUR ---
ICU/DELIVERER MERCHANDISE BLOOD SUGAR IS 124. THERE IS NO COVERAGE FOR THIS PER MD AND HOSPITAL PROTOCOL. WILL CONTINUE TO MONITOR THIS PT. PT WAS TURNED AND REPOSITIONED FOR COMFORT AND CARE.
[2019-01-07] VITALS (92 sets, daily range): BP systolic 74–153; BP diastolic 26–78
[2019-01-07] MEDS: BLOOD SUGAR DIAGNOSTIC 1 EACH STRIP IN SCH ×2 (00:18→06:21)
--- NOTE | 2019-01-07 01:00 | NUR ---
ICU/BOLT CUTTER PT'S BLOOD PRESSURE IS IN THE 70'S THEN CYCLED AGAIN TO 79/48. NOTIFIED CHARGE NURSE WHO THEN INCREASED THE LEVO TO 6 MCG FROM 4. WILL CONTINUE TO MONITOR THIS PT AND HIS BLOOD PRESSURE.
[2019-01-07] MEDS: PIPERACILLIN /TAZOBACTAM 2.25 G in IV D5W 50 ML IV SCH ×3 (01:33→13:35)
--- NOTE | 2019-01-07 02:30 | NUR ---
ICU/X RAY PHYSICIAN PT GIVEN AM CARE, PT HAS LARGE LIQUID BM, WILL MONITOR THIS. PT WAS PLACED ON 2 LITERS VIA N/C WITH SATURATION AT 98-100%. PT WAS TURNED AND REPOSITIONED FOR COMFORT AND CARE. WILL CONTINUE TO MONITOR THIS PT. NO ACUTE DISTRESS SEEN AT THIS TIME.
[2019-01-07] MEDS: IV D5W 1,000 ML IV PRN (03:34)
--- NOTE | 2019-01-07 04:00 | NUR ---
ICU/HYPO DIPPER AM LABS WERE DONE AWAIT FOR ANY ABNORMAL LABS
--- NOTE | 2019-01-07 05:00 | NUR ---
ICU/FACTORY REPRESENTATIVE PT'S BLOOD PRESSURE IS IN THE 70'S THEN CYCLED AGAIN TO 70'S STILL. NOTIFIED CHARGE NURSE WHO THEN INCREASED THE LEVO TO 8 MCG FROM 6. WILL CONTINUE TO MONITOR THIS PT AND HIS BLOOD PRESSURE.
[2019-01-07 05:22] LABS: BASOPHILS % (AUTO) 0.2 % (0.0-2.0); EOSINOPHILS % (AUTO) 1.4 % (0.0-6.0); HEMATOCRIT 33 % (39-51); HEMOGLOBIN 10.6 g/dL (13.5-17.5); LYMPHOCYTES # (AUTO) 4.6 /CMM (0.8-4.8); LYMPHOCYTES % (AUTO) 30.7 % (20.0-44.0); MEAN CORPUSCULAR HGB CONC 33 g/dl (31.0-36.0); MEAN CORPUSCULAR VOLUME 98 fL (80-96); NEUTROPHILS # (AUTO) 9.1 /CMM (1.8-8.9); NEUTROPHILS % (AUTO) 60.7 % (43.0-81.0); PLATELET COUNT (AUTO) 130 /CMM (150-450); RED BLOOD CELL COUNT(AUTO) 3.32 MIL/uL (4.5-6.0)
[2019-01-07 05:41] LABS: ALBUMIN 1.9 g/dL (3.4-5.0); BILIRUBIN,TOTAL 0.9 mg/dL (0.2-1.0); CALCIUM, SERUM 8.5 mg/dL (8.5-10.1); CREATININE 2.2 mg/dL (0.6-1.3); MAGNESIUM 2.7 mg/dL (1.8-2.4); PHOSPHORUS 2.5 mg/dL (2.5-4.9); POTASSIUM 2.9 mmol/L (3.5-5.1); TOTAL PROTEIN, SERUM 7.7 g/dL (6.4-8.2)
--- NOTE | 2019-01-07 06:00 | NUR ---
ICU/REGIONAL DIRECTOR OF FINANCE BLOOD SUGAR IS 172. THERE IS 3 UNITS COVERAGE FOR THIS PER MD AND HOSPITAL PROTOCOL. WILL CONTINUE TO MONITOR THIS PT. PT WAS TURNED AND REPOSITIONED FOR COMFORT AND CARE.
[2019-01-07] MEDS: FERROUS SULFATE (325 MG) 325 MG/TAB TABLET GT SCH (08:03)
[2019-01-07] MEDS: ASCORBIC ACID 500 MG TABLET GT SCH (08:03)
[2019-01-07] MEDS: PANTOPRAZOLE 40 MG TABLET.DR PO SCH (08:03)
[2019-01-07] MEDS: MULTIVIT W/MINERALS 1 TAB TABLET GT SCH (08:03)
--- NOTE | 2019-01-07 08:51 | NUR ---
received pt from operating room specialist, alert, follows commands, confused at times, SR, on 2L 02 sat well, lungs clear, no edema, GT clamped, f/c good output, on levo at 7mcg, K 2.[address] Colin, v/s stable, no pain, pt turned and repositioned.
[2019-01-07] MEDS: POTASSIUM CL. PREMIX PERIPHER. 50 ML IV SCH ×8 (09:11→17:14)
[2019-01-07] MEDS: NOREPINEPHRINE 8 MG in IV D5W 500 ML IV PRN (10:53)
--- NOTE | 2019-01-07 16:09 | NUR ---
pt is resting in the bed, alert, confused at times, SR, on levo at 7mcg, good urine output, v/s stable, no pain, pt cleaned and changed.
[2019-01-07] MEDS: MEROPENEM 500 MG in IV NS 0.9% 50 ML IV SCH (17:45)
[2019-01-07] MEDS ORDERED: VANCOMYCIN 1 GM in IV D5W 250 ML IV SCH (18:00)
--- NOTE | 2019-01-07 19:20 | NUR ---
ICU/STOCK OR DELIVERY CLERK RECEIVED REPORT FROM DAY NURSE. SEE NURSING FLOW SHEET FOR ASSESSMENT. PT CURRENTLY HAS NO SKIN ISSUES THAT NEEDS TO BE ADDRESSED. PT HAS IVF AND LEVO THAT ARE ADDRESSED ON THE FLOWSHEET ALONG WITH TITRATIONS. PT WAS TURNED AND REPOSITIONED FOR COMFORT AND CARE. NO ACUTE DISTRESS SEEN AT THIS TIME. WILL CONTINUE TO MONITOR THIS PT.
[2019-01-07] MEDS: SENNOSIDES 8.6 MG TABLET GT SCH (20:58)
[2019-01-07] MEDS: ENOXAPARIN SODIUM 30 MG/0.3 ML DISP.SYRIN SQ SCH (20:58)
--- NOTE | 2019-01-07 22:17 | NUR ---
ICU/JUNIOR BUYER PT GIVEN PM CARE, SMALL BM SEEN. PT REMAINS ON 2 LITERS VIA N/C WITH SATURATION AT 98-100%. PT WAS TURNED AND REPOSITIONED FOR COMFORT AND CARE. WILL CONTINUE TO MONITOR THIS PT. NO ACUTE DISTRESS SEEN AT THIS TIME.PT APPEARS COMFORTABLE.
[2019-01-08] VITALS (69 sets, daily range): BP systolic 76–124; BP diastolic 38–105
--- NOTE | 2019-01-08 00:10 | NUR ---
ICU/ENGRAVER PANTOGRAPH PT GIVEN PM CARE, SMALL BM SEEN. PT ALSO GIVEN ORAL CARE, GREEN THICK MUCOUS ALONG TEETH AND TONGUE. PT REMAINS ON 2 LITERS VIA N/C WITH SATURATION AT 98-100%. PT WAS TURNED AND REPOSITIONED FOR COMFORT AND CARE. WILL CONTINUE TO MONITOR THIS PT. NO ACUTE DISTRESS SEEN AT THIS TIME.PT APPEARS COMFORTABLE.
--- NOTE | 2019-01-08 02:30 | NUR ---
ICU/METAL MELTER PT GIVEN AM CARE. PT ALSO GIVEN ORAL CARE, GREEN THICK MUCOUS ALONG TEETH AND TONGUE. PT REMAINS ON 2 LITERS VIA N/C WITH SATURATION AT 98-100%. PT WAS TURNED AND REPOSITIONED FOR COMFORT AND CARE. WILL CONTINUE TO MONITOR THIS PT. NO ACUTE DISTRESS SEEN AT THIS TIME.PT APPEARS COMFORTABLE.
--- NOTE | 2019-01-08 04:26 | NUR ---
ICU/EXTRUSION DIE TEMPLATE MAKER AM LABS WERE DONE AWAIT FOR ANY ABNORMAL LABS. ALSO AT THIS TIME LEVO WAS DECREASED TO 4 MCG FROM 6 BY CHARGE NURSE WHO WAS NOTIFIED THAT BLOOD PRESSURE IS 112/62 AND WAS 100'S BEFORE THAT. WILL CONTINUE TO MONITOR THIS PT'S BLOOD PRESSURE.
[2019-01-08 04:43] LABS: BASOPHILS % (AUTO) 0.2 % (0.0-2.0); EOSINOPHILS % (AUTO) 5.9 % (0.0-6.0); HEMATOCRIT 30 % (39-51); HEMOGLOBIN 10.1 g/dL (13.5-17.5); LYMPHOCYTES # (AUTO) 3.4 /CMM (0.8-4.8); LYMPHOCYTES % (AUTO) 32.1 % (20.0-44.0); MEAN CORPUSCULAR HGB CONC 34 g/dl (31.0-36.0); MEAN CORPUSCULAR VOLUME 97 fL (80-96); MONOCYTES # (AUTO) 0.6 /CMM (0.1-1.30); MONOCYTES % (AUTO) 6.1 % (2.0-12.0); NEUTROPHILS # (AUTO) 5.8 /CMM (1.8-8.9); NEUTROPHILS % (AUTO) 55.7 % (43.0-81.0); PLATELET COUNT (AUTO) 141 /CMM (150-450); RED BLOOD CELL COUNT(AUTO) 3.11 MIL/uL (4.5-6.0); WHITE BLOOD COUNT (AUTO) 10.4 K/uL (4.3-11.0)
[2019-01-08 04:56] LABS: CALCIUM, SERUM 8.3 mg/dL (8.5-10.1); CREATININE 1.3 mg/dL (0.6-1.3); MAGNESIUM 2.1 mg/dL (1.8-2.4); PHOSPHORUS 2.6 mg/dL (2.5-4.9); POTASSIUM 4.1 mmol/L (3.5-5.1)
--- NOTE | 2019-01-08 05:06 | NUR ---
ICU/MOTOR PATROL OPERATOR PT'S BLOOD PRESSURE IS IN THE 80'S THEN CYCLED AGAIN TO 70'S STILL. NOTIFIED CHARGE NURSE WHO THEN INCREASED THE LEVO TO 6 MCG FROM 4. WILL CONTINUE TO MONITOR THIS PT AND HIS BLOOD PRESSURE.
[2019-01-08] MEDS: MEROPENEM 500 MG in IV NS 0.9% 50 ML IV SCH ×2 (06:02→17:02)
[2019-01-08] MEDS: NOREPINEPHRINE 8 MG in IV D5W 500 ML IV PRN ×2 (06:03→16:59)
--- NOTE | 2019-01-08 06:48 | NUR ---
ICU/WORK ADJUSTMENT INSTRUCTOR PT GIVEN AM CARE. PT ALSO GIVEN ORAL CARE, GREEN THICK MUCOUS ALONG TEETH AND TONGUE. PT REMAINS ON 2 LITERS VIA N/C WITH SATURATION AT 98-100%. PT WAS TURNED AND REPOSITIONED FOR COMFORT AND CARE. WILL CONTINUE TO MONITOR THIS PT. NO ACUTE DISTRESS SEEN AT THIS TIME.PT APPEARS COMFORTABLE.
[2019-01-08] MEDS: FERROUS SULFATE (325 MG) 325 MG/TAB TABLET GT SCH (08:40)
[2019-01-08] MEDS: PANTOPRAZOLE 40 MG TABLET.DR PO SCH (08:40)
[2019-01-08] MEDS: MULTIVIT W/MINERALS 1 TAB TABLET GT SCH (08:40)
[2019-01-08] MEDS: ASCORBIC ACID 500 MG TABLET GT SCH (08:40)
--- NOTE | 2019-01-08 11:43 | NUR ---
RN NOTE 0715: Received patient awake, A/O to self only. With GT clamped at this time. Will F/U with MD for feeding. NIKOS PICC intact. On Levo at 6mcg, will titrate as ordered. On IVF 12 NS with 20K at 100. Afebrile at this time. Palomares cath intact, noted with brenda colored urine with sediments, flushed for sediments, will monitor. On 2LPM of O2 via NC, 99% sat, placed on room air, sat 97%, will monitor. 1000: S/E by Dr. Uriostegui, no new order at this time. 1130: No any significant changes noted at this time. Levo @ 4mcg. Turned and repositioned q2.Kept heels elevated at all times.
[2019-01-08] MEDS: JEVITY 1.2 CAL 1,000 ML BOTTLE GT PRN (15:23)
[2019-01-08] MEDS: PROSOURCE / PROSTAT (PYXIS) 30 ML UDC GT SCH (17:38)
--- NOTE | 2019-01-08 18:19 | NUR ---
RN NOTE Still on Levo @ 6mcg. Started on GT feeding, tolerated well. No resduals noted. Kept HOB elevated.
--- NOTE | 2019-01-08 19:55 | NUR ---
SKI PATROL.INITIAL ASSESSMENT. RECEIVED THE PT REST ON THE BED.PT AWAKE, ALERT. ON ROOM AIR. SAT 97%. NO ACUTE DISTRESS NOTED. LOCKSTITCH POCKET SETTER SHOWING NSR IV LT UPPER ARM PICC LINE IVF 1/2NS IN 20MEQ POTASSIUM 100ML/H LEVOPHED 10MCG/MIN, HOB ELEVATED. GT FEEING JEVITY 60ML/H. WILL CONTINUE TO MONITOR VITALS.
[2019-01-08] MEDS: ENOXAPARIN SODIUM 30 MG/0.3 ML DISP.SYRIN SQ SCH (20:15)
[2019-01-08] MEDS: SENNOSIDES 8.6 MG TABLET GT SCH (22:25)
[2019-01-09] VITALS (68 sets, daily range): BP systolic 71–136; BP diastolic 30–85
--- NOTE | 2019-01-09 04:23 | NUR ---
ANIMATION ARTIST.AM CARE, ORAL CARE, BED BATH GIVEN. LINEN CHANGED.GT FEEDING TOLERATING WELL.LEVOPHED 6MCG/MIN. HOB ELEVATED, TURN AND REPOSITION Q2H. FC PATENT. URINE DRAINING, AFEBRILE. WILL CONTINUE TO MONITOR VITALS.
[2019-01-09 05:04] LABS: CALCIUM, SERUM 7.9 mg/dL (8.5-10.1); CREATININE 1.1 mg/dL (0.6-1.3); POTASSIUM 3.5 mmol/L (3.5-5.1)
[2019-01-09] MEDS: MEROPENEM 500 MG in IV NS 0.9% 50 ML IV SCH ×2 (05:04→17:28)
[2019-01-09] MEDS: PANTOPRAZOLE 40 MG TABLET.DR PO SCH (08:15)
[2019-01-09] MEDS: ASCORBIC ACID 500 MG TABLET GT SCH (08:15)
[2019-01-09] MEDS: FERROUS SULFATE (325 MG) 325 MG/TAB TABLET GT SCH (08:15)
[2019-01-09] MEDS: Z GUARD REMEDY 2 OZ OINT TP PRN (08:15)
[2019-01-09] MEDS: MULTIVIT W/MINERALS 1 TAB TABLET GT SCH (08:15)
[2019-01-09] MEDS: PROSOURCE / PROSTAT (PYXIS) 30 ML UDC GT SCH ×2 (08:15→17:28)
[2019-01-09] MEDS: NOREPINEPHRINE 8 MG in IV D5W 500 ML IV PRN ×2 (08:19→22:01)
--- NOTE | 2019-01-09 08:45 | NUR ---
ICU/RN: S/B Dr Colin. New orders noted and carried out.
--- NOTE | 2019-01-09 13:00 | NUR ---
ICU/RN: Hygienic care rendered. Follows commands. Levophed titration ongoing. Will cont to monitor pt
[2019-01-09] MEDS: JEVITY 1.2 CAL 1,000 ML BOTTLE GT PRN (14:44)
--- NOTE | 2019-01-09 18:00 | NUR ---
ICU/RN: Soft, green BM noted. Pt forgetful and attempts to remove lines. Educated and reinforced. Tolerated hygienic care well. Off Levophed, SBP now in 130's.
--- NOTE | 2019-01-09 19:35 | NUR ---
RN NOTES RECEIVED PT WATCHING TV ON BED. BREATHING EVEN AND UNLABORED SATURATION 100% ON ROOM AIR. PATIENT IS AOX 1-2 W/DELAYED REACTION/ANSWERED. AFEBRILE. NSR ON TELE MONITOR.IV SITE ON NIKOS PICC LINE WITH 1/2 NS + 20 MEQ POTASSIUM. @ 100 ML.HR TOLERATED WELL. NOTED BP IS LOW SBP< 90 AND MAP <65 LEVOPHED STARTED AT 19:20 @ 2MCG/MIN. WILL TITRATE ORDERED. KEPT PT CLEAN AND DRY. CALL LIGHT KEPT WITHIN EASY REACH. WILL CONTINUE TO MONITOR.
[2019-01-09] MEDS: SENNOSIDES 8.6 MG TABLET GT SCH (21:49)
[2019-01-09] MEDS: ENOXAPARIN SODIUM 30 MG/0.3 ML DISP.SYRIN SQ SCH (21:51)
[2019-01-10] VITALS (95 sets, daily range): BP systolic 75–139; BP diastolic 34–81
[2019-01-10 04:50] LABS: BASOPHILS % (AUTO) 0.4 % (0.0-2.0); EOSINOPHILS % (AUTO) 8.2 % (0.0-6.0); HEMATOCRIT 28 % (39-51); HEMOGLOBIN 9.5 g/dL (13.5-17.5); LYMPHOCYTES # (AUTO) 3.1 /CMM (0.8-4.8); MEAN CORPUSCULAR HGB CONC 34 g/dl (31.0-36.0); MEAN CORPUSCULAR VOLUME 94 fL (80-96); MONOCYTES # (AUTO) 0.4 /CMM (0.1-1.30); MONOCYTES % (AUTO) 5.2 % (2.0-12.0); NEUTROPHILS # (AUTO) 3.3 /CMM (1.8-8.9); NEUTROPHILS % (AUTO) 44.2 % (43.0-81.0); PLATELET COUNT (AUTO) 162 /CMM (150-450); RED BLOOD CELL COUNT(AUTO) 2.95 MIL/uL (4.5-6.0); WHITE BLOOD COUNT (AUTO) 7.3 K/uL (4.3-11.0)
[2019-01-10 05:10] LABS: CALCIUM, SERUM 8.3 mg/dL (8.5-10.1); MAGNESIUM 1.6 mg/dL (1.8-2.4); PHOSPHORUS 2.9 mg/dL (2.5-4.9); POTASSIUM 3.6 mmol/L (3.5-5.1)
[2019-01-10] MEDS: MEROPENEM 500 MG in IV NS 0.9% 50 ML IV SCH ×3 (06:25→21:34)
--- NOTE | 2019-01-10 07:15 | NUR ---
RN NOTES PATIENT REMAINED STABLE IN ROOM AIR SATURATION >95%. AOX 1, CONFUSED. IV SITE ON NIKOS CONTINUE WITH LEVOPHED @ 4MCG/MIN TITRATED ORDERED. NO SIGNIFICANT CHANGES THROUGHOUT THE SHIFT. KEPT PT CLEAN AND DRY ENDORSED CONTINUITY OF CARE TO AM NURSE.
--- NOTE | 2019-01-10 07:30 | NUR ---
RN NOTE: RECEIVED PATIENT IN BED, AWAKE, ALERT WITH CONFUSION, BUT REDIRECTABLE AND CAN FOLLOW SIMPLE COMMANDS. ON CONTACT ISOLATION FOR ESBL URINE. RESPIRATION EVEN AND UNLABORED SATURATING 97% IN ROOM AIR. HOB ELEVATED. (L) UA PICC LINE TRIPLE LUMEN NOTED PATENT AND INTACT WITH TRANSPARENT DRESSING IN PLACED CLEAN AND DRY INFUSING 1/2 NS + KCL 20 MEQ @ 100ML/HR AND LEVOPHED @4MCG/HR. KIRKLAND CATHETER IN PLACED WITH YELLOW URINE DRAINING TO GRAVITY. BED ALARMED AND LOCKED AT ALL TIMES. NEEDS ANTICIPATED.
[2019-01-10] MEDS: NOREPINEPHRINE 8 MG in IV D5W 500 ML IV PRN (08:03)
[2019-01-10] MEDS: ASCORBIC ACID 500 MG TABLET GT SCH (09:16)
[2019-01-10] MEDS: FERROUS SULFATE UDC 300 MG/5 ML UDC GT SCH (09:16)
[2019-01-10] MEDS: MULTIVIT W/MINERALS 1 TAB TABLET GT SCH (09:16)
[2019-01-10] MEDS: PANTOPRAZOLE 40 MG/PACK PACK GT SCH (09:16)
[2019-01-10] MEDS: PROSOURCE / PROSTAT (PYXIS) 30 ML UDC GT SCH ×2 (09:18→17:14)
[2019-01-10] MEDS: Magnesium 1GM/D5W 100ML PREMIX 100 ML IV SCH ×2 (09:31→10:33)
[2019-01-10] MEDS: JEVITY 1.2 CAL 1,000 ML BOTTLE GT PRN (12:31)
--- NOTE | 2019-01-10 14:50 | NUR ---
RN NOTE: BEDSIDE REPORT WAS GIVEN TO TAY SUPERSONIC ENGINEER FOR CONTINUITY OF CARE.
--- NOTE | 2019-01-10 18:18 | NUR ---
RN NOTE Patient still on 6mcg Levo. A/Ox2. GT feeding tolerated well. Kept HOB elevated. No significant changes noted at this time.
--- NOTE | 2019-01-10 19:20 | NUR ---
RN NOTES RECEIVED PT ASLEEP ON BED. RESPONSIVE TO TACTILE AND VERBAL STIMULI. PT IS AOX1 VERBALLY RESPONSIVE. BREATHING EVEN AND UNLABORED. SATURATION 97% ON ROOM AIR. NSR ON TELE MONITOR. WITH GTF JEVIOTY 1.2 @ 60 ML.HR INTACT PATENCY CHECKED. WITH ZERO RESIDUAL. IV SITE ON NIKOS PICC LINE TLC , 2LUMEN INTACT CRUZ COLOR UNABLE TO FLUSHED. PT IS RUNNING WITH 1/2 NS WITH 20 MEQ POTASSIUM AND LEVOPHED @ 6 MCG/MIN WILL TITRATE ORDERED. KIRKLAND CATH KEPT OFF FROM THE FLOOR DRAINED VIA GRAVITY. KEPT PT CLEAN AND DRY. T/R PT COMFORTABLE. WILL CONTINUE TO MONITOR.
[2019-01-10] MEDS: ENOXAPARIN SODIUM 30 MG/0.3 ML DISP.SYRIN SQ SCH (21:42)
[2019-01-10] MEDS: SENNOSIDES 8.6 MG TABLET GT SCH (21:52)
[2019-01-11] VITALS (89 sets, daily range): BP systolic 69–130; BP diastolic 39–79
[2019-01-11] MEDS ORDERED: IV PREMIX 0.45% NS + KCL 1,000 ML IV ONE (02:37)
[2019-01-11 04:51] LABS: BASOPHILS % (AUTO) 0.3 % (0.0-2.0); EOSINOPHILS % (AUTO) 8.1 % (0.0-6.0); HEMATOCRIT 27 % (39-51); HEMOGLOBIN 9.5 g/dL (13.5-17.5); LYMPHOCYTES # (AUTO) 3.1 /CMM (0.8-4.8); LYMPHOCYTES % (AUTO) 44.5 % (20.0-44.0); MEAN CORPUSCULAR HGB CONC 35 g/dl (31.0-36.0); MEAN CORPUSCULAR VOLUME 95 fL (80-96); MONOCYTES # (AUTO) 0.5 /CMM (0.1-1.30); MONOCYTES % (AUTO) 6.5 % (2.0-12.0); NEUTROPHILS # (AUTO) 2.9 /CMM (1.8-8.9); NEUTROPHILS % (AUTO) 40.6 % (43.0-81.0); PLATELET COUNT (AUTO) 194 /CMM (150-450); RED BLOOD CELL COUNT(AUTO) 2.88 MIL/uL (4.5-6.0)
[2019-01-11 05:12] LABS: ALBUMIN 1.9 g/dL (3.4-5.0); BILIRUBIN,TOTAL 0.2 mg/dL (0.2-1.0); CALCIUM, SERUM 8.2 mg/dL (8.5-10.1); MAGNESIUM 2.3 mg/dL (1.8-2.4); PHOSPHORUS 3.7 mg/dL (2.5-4.9); POTASSIUM 4.2 mmol/L (3.5-5.1); TOTAL PROTEIN, SERUM 7.2 g/dL (6.4-8.2)
[2019-01-11] MEDS: MEROPENEM 500 MG in IV NS 0.9% 50 ML IV SCH ×3 (05:14→20:48)
[2019-01-11] MEDS: JEVITY 1.2 CAL 1,000 ML BOTTLE GT PRN (06:24)
--- NOTE | 2019-01-11 07:07 | NUR ---
RN NOTES PATIENT ASLEEP WELL THROUGHOUT THE SHIFT. AFEBRILE. NO ACUTE RESPIRATORY DISTRESS ON ROOM AIR. SATING 97%. SB WHILE ASLEEP LOWEST HR 47, ASYMPTOMATIC. NO CHANGE OF MENTAL STATUS. IV SITE REMAINED INTACT AND PATENT. CONTINUE WITH PRESSOR LEVOPHED @ 4MCG/MIN TITRATED ORDERED. PT IS CLEAN AND DRY. WILL ENDORSED CONTINUITY OF CARE TO AM NURSE.
[2019-01-11] MEDS: FERROUS SULFATE UDC 300 MG/5 ML UDC GT SCH (08:08)
[2019-01-11] MEDS: MULTIVIT W/MINERALS 1 TAB TABLET GT SCH (08:08)
[2019-01-11] MEDS: ASCORBIC ACID 500 MG TABLET GT SCH (08:08)
[2019-01-11] MEDS: PROSOURCE / PROSTAT (PYXIS) 30 ML UDC GT SCH ×2 (08:08→17:03)
[2019-01-11] MEDS: Z GUARD REMEDY 2 OZ OINT TP PRN ×2 (08:08→17:03)
[2019-01-11] MEDS: PANTOPRAZOLE 40 MG/PACK PACK GT SCH (08:08)
[2019-01-11] MEDS: NOREPINEPHRINE 8 MG in IV D5W 500 ML IV PRN (08:53)
--- NOTE | 2019-01-11 19:29 | NUR ---
CARE ENDORSED TO CHANELL SONG FOR AMEYA. PATIENT RESTING COMFORTABLY. NO S/S DISTRESS NOTED. ALL DUE MEDS GIVEN. IV SITE C/D/I/P. KIRKLAND C/D/I/O. SKIN, SAFETY, ASPIRATION, ISOLATION PRECAUTIONS IN PLACE AND MONITORED THROUGHOUT THE DAY
--- NOTE | 2019-01-11 19:30 | NUR ---
ICU/NOTES RECEIVED PT AWAKE ORIENTED TO SELF,RE-ORIENTED TO TIME PLACE AMD SURROUNDINGS.OM LEVOPHED DRIP AT 2MCG/MIN.W SBP OF 93MMHG,MAP=65.NONITOR SHOWS NSR.
[2019-01-11] MEDS: ENOXAPARIN SODIUM 30 MG/0.3 ML DISP.SYRIN SQ SCH (20:47)
--- NOTE | 2019-01-11 22:00 | NUR ---
ICU NOTES REMAINS ON LEVOPHED DRIP,NOW AT 3MCG/MIN,MAO=59.DENIES PAIN OR DISCOMFORT.
[2019-01-11] MEDS: SENNOSIDES 8.6 MG TABLET GT SCH (22:37)
[2019-01-12] VITALS (93 sets, daily range): BP systolic 70–136; BP diastolic 32–74
[2019-01-12] MEDS: JEVITY 1.2 CAL 1,000 ML BOTTLE GT PRN (02:39)
[2019-01-12 04:41] LABS: BASOPHILS % (AUTO) 0.3 % (0.0-2.0); EOSINOPHILS % (AUTO) 6.9 % (0.0-6.0); HEMATOCRIT 29 % (39-51); HEMOGLOBIN 9.9 g/dL (13.5-17.5); LYMPHOCYTES # (AUTO) 3.9 /CMM (0.8-4.8); LYMPHOCYTES % (AUTO) 46.4 % (20.0-44.0); MEAN CORPUSCULAR HGB CONC 35 g/dl (31.0-36.0); MEAN CORPUSCULAR VOLUME 95 fL (80-96); MONOCYTES # (AUTO) 0.5 /CMM (0.1-1.30); MONOCYTES % (AUTO) 5.6 % (2.0-12.0); NEUTROPHILS # (AUTO) 3.4 /CMM (1.8-8.9); NEUTROPHILS % (AUTO) 40.8 % (43.0-81.0); PLATELET COUNT (AUTO) 255 /CMM (150-450); RED BLOOD CELL COUNT(AUTO) 3.03 MIL/uL (4.5-6.0); WHITE BLOOD COUNT (AUTO) 8.3 K/uL (4.3-11.0)
[2019-01-12 04:42] LABS: CALCIUM, SERUM 8.2 mg/dL (8.5-10.1); CREATININE 0.9 mg/dL (0.6-1.3); POTASSIUM 4.3 mmol/L (3.5-5.1)
[2019-01-12] MEDS: MEROPENEM 500 MG in IV NS 0.9% 50 ML IV SCH ×3 (04:55→21:32)
--- NOTE | 2019-01-12 06:00 | NUR ---
ICU NOTES PT REFUSED BED BATH,EVEN THOUGH CHUX AND DRAW SHEET CHANGED PT CHANGING POSITION ABRUPTLY AND TUBE FEEDING KEEPS DISCONNECTING FROM G-TUBE.ON LEVOPHED DRIP AT 4MCG/MIN.SEE VITAL SIGN SHEET.SLEPT MOST OF THE NIGHT.OFFERS NO COMPLAINTS.
--- NOTE | 2019-01-12 07:10 | NUR ---
ICU/RN REPORT AND CARE OF PT GIVEN TO TEVIN Rivas
[2019-01-12] MEDS: PANTOPRAZOLE 40 MG/PACK PACK GT SCH (08:27)
[2019-01-12] MEDS: MULTIVIT W/MINERALS 1 TAB TABLET GT SCH (08:27)
[2019-01-12] MEDS: Z GUARD REMEDY 2 OZ OINT TP PRN ×3 (08:27→17:59)
[2019-01-12] MEDS: FERROUS SULFATE UDC 300 MG/5 ML UDC GT SCH (08:27)
[2019-01-12] MEDS: ASCORBIC ACID 500 MG TABLET GT SCH (08:27)
[2019-01-12] MEDS: PROSOURCE / PROSTAT (PYXIS) 30 ML UDC GT SCH ×2 (08:27→17:59)
[2019-01-12] MEDS ORDERED: IV NS 0.9% 500 ML IV ONE (13:30)
--- NOTE | 2019-01-12 13:37 | NUR ---
dnp aung at bedside. updated on patient condition/labs/vs. patient bp marginal off levophed. per aung give 500ns bolus x1. aware of patient hr in 40's during rest. no s/s of hr being symptomatic.
--- NOTE | 2019-01-12 16:19 | NUR ---
notified aung patient bp continues borderline with systolic in the 80's with map 60-65. per md goal of map 65 and above. for map under 65 please resume levophed for blood pressure support. called pharmacy to have levophed delivered as current is .
[2019-01-12] MEDS: NOREPINEPHRINE 8 MG in IV D5W 500 ML IV PRN (18:03)
--- NOTE | 2019-01-12 18:33 | NUR ---
all due meds given and all needs met. patient on low dose levophed per order. room air stable. bhatt cath in place c/d/i/p. g tube in place and tolerating tube feeding. patient skin, safety, aspiration, isolation precautions in place and monitored throughout the shift
--- NOTE | 2019-01-12 19:51 | NUR ---
VETERINARIAN ASSISTANT OPENING NOTES RECEIVED REPORT FROM TEVIN LUA. PATIENT A/A/O X1 TO SELF W/ CONFUSION NOTED BUT ABLE TO STATE PAIN. BREATHING EVEN & UNLABORED, TOLERATING ROOM AIR & SATING WELL @ 98%. NO S/S OF RESPIRATORY DISTRESS. ON TELE W/ SINUS LONG, HR 50S. LEFT UPPER ARM PICC LINE INTACT & PATENT W/ DRESSING CDI. LEVOPHED INFUSING WELL @ 2MCG/MIN & IVF 1/2 NS W/ 20 MEQ @ 100 ML/HR. G-TUBE PATENT & FLUSHING WELL, GTF JEVITY RUNNING @ 60 ML/HR. NO RESIDUAL NOTED @ THIS TIME. KIRKLAND CATH DRAINING CLEAR, YELLOW URINE. DENIES ANY PAIN OR DISCOMFORT @ THIS TIME. SAFETY MEASURES IN PLACE W/ SIDE RAILS UP & BED ALARM ON. WILL CONTINUE TO MONITOR CLOSELY.
[2019-01-12] MEDS: SENNOSIDES 8.6 MG TABLET GT SCH (21:32)
[2019-01-12] MEDS: ENOXAPARIN SODIUM 30 MG/0.3 ML DISP.SYRIN SQ SCH (21:33)
[2019-01-13] VITALS (81 sets, daily range): BP systolic 82–131; BP diastolic 31–78
[2019-01-13] MEDS: JEVITY 1.2 CAL 1,000 ML BOTTLE GT PRN ×2 (01:06→23:49)
[2019-01-13] MEDS: MEROPENEM 500 MG in IV NS 0.9% 50 ML IV SCH ×3 (04:46→21:45)
[2019-01-13 05:00] LABS: BASOPHILS % (AUTO) 0.4 % (0.0-2.0); EOSINOPHILS % (AUTO) 6.2 % (0.0-6.0); HEMATOCRIT 29 % (39-51); HEMOGLOBIN 9.9 g/dL (13.5-17.5); LYMPHOCYTES # (AUTO) 4.3 /CMM (0.8-4.8); LYMPHOCYTES % (AUTO) 52.7 % (20.0-44.0); MEAN CORPUSCULAR HGB CONC 34 g/dl (31.0-36.0); MEAN CORPUSCULAR VOLUME 95 fL (80-96); MONOCYTES # (AUTO) 0.4 /CMM (0.1-1.30); NEUTROPHILS # (AUTO) 2.9 /CMM (1.8-8.9); NEUTROPHILS % (AUTO) 35.7 % (43.0-81.0); PLATELET COUNT (AUTO) 312 /CMM (150-450); RED BLOOD CELL COUNT(AUTO) 3.08 MIL/uL (4.5-6.0); WHITE BLOOD COUNT (AUTO) 8.2 K/uL (4.3-11.0)
[2019-01-13 05:15] LABS: CALCIUM, SERUM 8.4 mg/dL (8.5-10.1); CREATININE 0.8 mg/dL (0.6-1.3); MAGNESIUM 1.9 mg/dL (1.8-2.4); PHOSPHORUS 3.5 mg/dL (2.5-4.9); POTASSIUM 4.4 mmol/L (3.5-5.1)
[2019-01-13] MEDS: ASCORBIC ACID 500 MG TABLET GT SCH (08:11)
[2019-01-13] MEDS: PANTOPRAZOLE 40 MG/PACK PACK GT SCH (08:11)
[2019-01-13] MEDS: FERROUS SULFATE UDC 300 MG/5 ML UDC GT SCH (08:11)
[2019-01-13] MEDS: MULTIVIT W/MINERALS 1 TAB TABLET GT SCH (08:11)
[2019-01-13] MEDS: PROSOURCE / PROSTAT (PYXIS) 30 ML UDC GT SCH ×2 (08:12→16:22)
--- NOTE | 2019-01-13 08:28 | NUR ---
received pt from material handler 1st shift, alert, follows simple commands, confused at times, SR, SB, RA, sat well, lungs clear, GT to feeding, tolerates well, f/c good output, receiving levo at 3mcg, v/s stable, no pain, pt turns and repositions by himself.
--- NOTE | 2019-01-13 16:12 | NUR ---
pt is resting in the bed, alert, follows commands, SR, on levo at 3mcg, v/s stable, no pain, pt cleaned and changed.
--- NOTE | 2019-01-13 19:00 | NUR ---
ARMAMENT REPAIRER NOTE PATIENT REPORT GIVEN BEDSIDE. PATIENT IN BED A/O X 1. PATIENT DENIES SOB/ CHEST PAIN. PATIENT SR ON THE MONITOR, BREATHING EVEN AND UNLABORED. PATIENT HAS NIKOS PICC LINE PATENT AND INTACT. NO S/S OF INFECTION/INFILTRATION. PATIENT KIRKLAND DRAINING TO GRAVITY. URINE YELLOW AND CLEAR. DISCUSSED WITH PATIENT POC PATIENT STATES "OKAY." PATIENT ON 3 MCG LEVO DRIP. BP STABLE. RN WILL CONTINUE TO MONITOR FOR CHANGES AND TITRATE PRN. SAFETY PRECAUTIONS IN PLACE. CALL LIGHT WITHIN REACH. SIDE RAILS UP X 2.
[2019-01-13] MEDS: ENOXAPARIN SODIUM 30 MG/0.3 ML DISP.SYRIN SQ SCH (21:45)
[2019-01-13] MEDS: SENNOSIDES 8.6 MG TABLET GT SCH (21:45)
[2019-01-14] VITALS (59 sets, daily range): BP systolic 76–131; BP diastolic 45–101
[2019-01-14 05:06] LABS: BASOPHILS % (AUTO) 0.3 % (0.0-2.0); EOSINOPHILS % (AUTO) 5.1 % (0.0-6.0); HEMATOCRIT 30 % (39-51); HEMOGLOBIN 10.3 g/dL (13.5-17.5); LYMPHOCYTES # (AUTO) 4.6 /CMM (0.8-4.8); LYMPHOCYTES % (AUTO) 55.3 % (20.0-44.0); MEAN CORPUSCULAR HGB CONC 35 g/dl (31.0-36.0); MEAN CORPUSCULAR VOLUME 94 fL (80-96); MONOCYTES # (AUTO) 0.6 /CMM (0.1-1.30); MONOCYTES % (AUTO) 7.1 % (2.0-12.0); NEUTROPHILS # (AUTO) 2.7 /CMM (1.8-8.9); NEUTROPHILS % (AUTO) 32.2 % (43.0-81.0); PLATELET COUNT (AUTO) 386 /CMM (150-450); RED BLOOD CELL COUNT(AUTO) 3.17 MIL/uL (4.5-6.0); WHITE BLOOD COUNT (AUTO) 8.3 K/uL (4.3-11.0)
[2019-01-14 05:23] LABS: CALCIUM, SERUM 8.8 mg/dL (8.5-10.1); CREATININE 0.8 mg/dL (0.6-1.3); MAGNESIUM 2.1 mg/dL (1.8-2.4); POTASSIUM 4.7 mmol/L (3.5-5.1)
[2019-01-14] MEDS: MEROPENEM 500 MG in IV NS 0.9% 50 ML IV SCH ×3 (05:30→22:15)
--- NOTE | 2019-01-14 06:52 | NUR ---
VICE PRESIDENT PLANNING NOTE PATIENT TOLERATED THE NIGHT WELL. NO S/S OF HYPOTENSION, HOWEVER UNABLE TO TITRATE LEVO DOWN. ALL CARE GIVEN ORDERED. BED BATHS AND SKIN BREAKDOWN PRECAUTIONS FOLLOWED. PATIENT STABLE AT THIS TIME. SR ON THE MONITOR NO S/S OF RESP DISTRESS, BREATHING EVEN AND UNLABORED. RN WILL ENDORSE POC TO AM FOR AMEYA. SAFETY PRECAUTIONS IN PLACE. SIDE RAILS UP X 2 , CALL LIGHT WITHIN REACH.
[2019-01-14] MEDS: NOREPINEPHRINE 8 MG in IV D5W 500 ML IV PRN (07:36)
[2019-01-14] MEDS: FERROUS SULFATE UDC 300 MG/5 ML UDC GT SCH (08:24)
[2019-01-14] MEDS: PROSOURCE / PROSTAT (PYXIS) 30 ML UDC GT SCH ×2 (08:24→16:26)
[2019-01-14] MEDS: MULTIVIT W/MINERALS 1 TAB TABLET GT SCH (08:25)
[2019-01-14] MEDS: PANTOPRAZOLE 40 MG/PACK PACK GT SCH (08:25)
[2019-01-14] MEDS: ASCORBIC ACID 500 MG TABLET GT SCH (08:25)
--- NOTE | 2019-01-14 08:58 | NUR ---
received pt from shift boss, alert, follows commands, confused at times, SR, SB, on levo at 3mcg, RA sat well, GT to feeding tolerates well, f/c good output, v/s stable, no pain, pt turned and repositioned.
--- NOTE | 2019-01-14 16:17 | NUR ---
pt is resting in the bed, alert, confused at times, SR, RA, on levo at 3mcg, v/s stable, no pain, pt cleaned and changed.
--- NOTE | 2019-01-14 20:00 | NUR ---
agricultural economics teacher notes Received patient's report from am RN. Patient is A/A/Ox1 with confusion . patient dinies of having and chest pain , sob, blurred or bobble vision at this time. patient is sr/sb on hyperbaric technician with SBP >90 on Levophed 3mcg/min. patient has left upper arm picc line with 1/2 NS 20 mEq iv fluids at 100 ml/hr. Palomares catheter is in place draining on gravity. GT is in place with positive placement checked at 60ml/hr without any residual at this time. patient is on ra with saturation of >95%. no sob, no distress noted at this time. All safety measures are in place , bed in low, locked position, call light in reach. contact isolation observed and maintained. will continue to monitor patient closely.
[2019-01-14] MEDS: ENOXAPARIN SODIUM 30 MG/0.3 ML DISP.SYRIN SQ SCH (22:16)
[2019-01-14] MEDS: SENNOSIDES 8.6 MG TABLET GT SCH (22:16)
[2019-01-15] VITALS (78 sets, daily range): BP systolic 62–138; BP diastolic 34–80
--- NOTE | 2019-01-15 02:40 | NUR ---
RN NOTES PATIENT'S B/P IS 79/40 HR 85. PATIENT IS IN AND OUT OF JUNCTIONAL ON PERSONAL CONSULTANT. LEVOPHED HAS BEEN INCREASED TO 5MCG/MIN FROM 3MCG/MIN. PATIENT'S B/P WILL BE RECHECKED IN 5MINUTES.WILL CONTINUE TO MONITOR PATIENT CLOSELY.
--- NOTE | 2019-01-15 02:50 | NUR ---
RN NOTES PATIENT'S B/P 117/37 HR-54 WITH LEVOPHED 5MCG/MIN.
--- NOTE | 2019-01-15 03:11 | NUR ---
RN NOTES PATIENT'S HR 45 B/P 111/58. SINGLE WIRE SAW OPERATOR ED IS NOTIFIED AND LEVOPHED HAS BEEN INCREASED TO 7MCG/MIN. WILL CONTINUE TO MONITOR PATIENT CLOSELY.
--- NOTE | 2019-01-15 03:22 | NUR ---
PATIENT'S HR IS 56 , 66. WILL CONTINUE TO MONITOR PATIENT CLOSELY.
[2019-01-15 04:50] LABS: BASOPHILS % (AUTO) 0.4 % (0.0-2.0); EOSINOPHILS % (AUTO) 3.6 % (0.0-6.0); HEMATOCRIT 32 % (39-51); HEMOGLOBIN 10.9 g/dL (13.5-17.5); LYMPHOCYTES # (AUTO) 5.6 /CMM (0.8-4.8); LYMPHOCYTES % (AUTO) 56.2 % (20.0-44.0); MEAN CORPUSCULAR HGB CONC 34 g/dl (31.0-36.0); MEAN CORPUSCULAR VOLUME 95 fL (80-96); MONOCYTES # (AUTO) 0.7 /CMM (0.1-1.30); MONOCYTES % (AUTO) 6.5 % (2.0-12.0); NEUTROPHILS # (AUTO) 3.3 /CMM (1.8-8.9); NEUTROPHILS % (AUTO) 33.3 % (43.0-81.0); PLATELET COUNT (AUTO) 459 /CMM (150-450); RED BLOOD CELL COUNT(AUTO) 3.37 MIL/uL (4.5-6.0)
[2019-01-15 04:57] LABS: CALCIUM, SERUM 8.9 mg/dL (8.5-10.1); CREATININE 0.8 mg/dL (0.6-1.3); POTASSIUM 4.6 mmol/L (3.5-5.1)
[2019-01-15] MEDS: MEROPENEM 500 MG in IV NS 0.9% 50 ML IV SCH ×3 (05:02→20:34)
[2019-01-15] MEDS: MULTIVIT W/MINERALS 1 TAB TABLET GT SCH (09:24)
[2019-01-15] MEDS: ASCORBIC ACID 500 MG TABLET GT SCH (09:24)
[2019-01-15] MEDS: PANTOPRAZOLE 40 MG/PACK PACK GT SCH (09:24)
[2019-01-15] MEDS: FERROUS SULFATE UDC 300 MG/5 ML UDC GT SCH (09:24)
[2019-01-15] MEDS: PROSOURCE / PROSTAT (PYXIS) 30 ML UDC GT SCH ×2 (09:24→17:01)
[2019-01-15] MEDS: NOREPINEPHRINE 8 MG in IV D5W 500 ML IV PRN ×2 (09:25→18:45)
[2019-01-15] MEDS: Z GUARD REMEDY 2 OZ OINT TP PRN (09:25)
--- NOTE | 2019-01-15 18:37 | NUR ---
HEEL DIPPER CLOSING NOTES: Pt resting comfortably on his bed, not in any distress, A/O x 1. No SOB while on R/A. SR/SB on telemonitor. NIKOS PICC line kept patent & intact w/ no s/sx of infection/infiltration noted - w/ 1/2 NS + 20meqs KCL x 100 cc/hr infusing well. Levophed drip titrated accordingly to keep MAP >65. FC kept patent & intact draining to yellowish UOP. No high gastric residual w/ current GTF x 60cc/hr, patency of GT maintained. Safety precaution kept in place at all times w/ bed in lowest & locked pos. Call light w/in reach. Isolation prec observed at all times. Will endorse to PM RN for AMEYA.
[2019-01-15] MEDS: JEVITY 1.2 CAL 1,000 ML BOTTLE GT PRN (18:49)
--- NOTE | 2019-01-15 20:00 | NUR ---
ICU NOTES RECEIVED PT AWAKE ALERT ORIENTED TO NAME AND PLACE.RE-ORIENTED TO TIME AND SURROUNDINGS,FOLLOWS COMMANDS.ON LEVOPHED DRIP AT 4MCG/MIN W/ MAP OF 68.OFFERS NO COMPLAINTS,DENIES PAIN OR DISCOMFORT.
[2019-01-15] MEDS: ENOXAPARIN SODIUM 30 MG/0.3 ML DISP.SYRIN SQ SCH (20:34)
--- NOTE | 2019-01-15 21:00 | NUR ---
ICU NOTES LEVOPHED DRIP INCREASED TO 5 MCG/MIN FOR MAP OF 63.
[2019-01-15] MEDS: SENNOSIDES 8.6 MG TABLET GT SCH (21:49)
[2019-01-16] VITALS (86 sets, daily range): BP systolic 59–141; BP diastolic 28–77
[2019-01-16] MEDS: MEROPENEM 500 MG in IV NS 0.9% 50 ML IV SCH ×3 (04:37→20:14)
[2019-01-16 04:58] LABS: BASOPHILS # (AUTO) 0.1 /CMM (0.0-0.2); BASOPHILS % (AUTO) 1.1 % (0.0-2.0); EOSINOPHILS % (AUTO) 4.2 % (0.0-6.0); HEMATOCRIT 31 % (39-51); HEMOGLOBIN 10.4 g/dL (13.5-17.5); LYMPHOCYTES # (AUTO) 3.9 /CMM (0.8-4.8); LYMPHOCYTES % (AUTO) 50.9 % (20.0-44.0); MEAN CORPUSCULAR HGB CONC 34 g/dl (31.0-36.0); MEAN CORPUSCULAR VOLUME 95 fL (80-96); MONOCYTES # (AUTO) 0.5 /CMM (0.1-1.30); MONOCYTES % (AUTO) 6.2 % (2.0-12.0); NEUTROPHILS # (AUTO) 2.8 /CMM (1.8-8.9); NEUTROPHILS % (AUTO) 37.6 % (43.0-81.0); PLATELET COUNT (AUTO) 416 /CMM (150-450); RED BLOOD CELL COUNT(AUTO) 3.24 MIL/uL (4.5-6.0); WHITE BLOOD COUNT (AUTO) 7.6 K/uL (4.3-11.0)
[2019-01-16 05:15] LABS: CALCIUM, SERUM 8.7 mg/dL (8.5-10.1); CREATININE 0.8 mg/dL (0.6-1.3); MAGNESIUM 1.9 mg/dL (1.8-2.4); PHOSPHORUS 3.3 mg/dL (2.5-4.9); POTASSIUM 4.5 mmol/L (3.5-5.1)
--- NOTE | 2019-01-16 05:30 | NUR ---
ICU NOTES INCONTINENT OF LARGE AMT.PASTY GREENISH STOOL,BED BATH GIVEN.REMAINS ON LEVOPHED DRIP AT 5MCG/MIN.MONITOR NSR-SINUS LONG.
--- NOTE | 2019-01-16 07:45 | NUR ---
ICU/RN AM SHIFT INITIAL NOTES RECEIVED PT ASLEEP IN BED, EASILY AROUSED, PT A/O X 1-2, ABLE TO VERBALIZED NEEDS, DENIES ANY SYMPTOMS. NO ACUTE CHANGE OF CONDITION NOTED, BP SUSTAINED WITH SBP ABOVE 90. ON ROOM AIR, SATURATING WELL @ 97%, RESPIRATIONS EVEN AND UNLABORED, LUNG SOUNDS CLEAR. ON TELE MONITORING, SINUS LONG, HR 56. PT ON LEVOPHED @ 5MCG./MIN., AND KCL 20MEQ IN NS @ 100CC/HR. PICC LINE PATENT WITH NO S/S OF INFECTION. GT FEEDING ON GOING @ 60CC/HR, NO GASTRIC RESIDUAL NOTED, FLUSHED, PATENT. KIRKLAND CATHETER INTACT WITH CLOUDY YELLOW URINE OUTPUT, PT IS COMFORTABLE, SCHEDULED AM MEDS TO BE GIVEN. CL WITHIN REACHED, SAFETY MAINTAINED AND ISOLATION OBSERVED. ON GOING MONITORING.
[2019-01-16] MEDS: ASCORBIC ACID 500 MG TABLET GT SCH (09:18)
[2019-01-16] MEDS: PROSOURCE / PROSTAT (PYXIS) 30 ML UDC GT SCH ×2 (09:18→16:08)
[2019-01-16] MEDS: MULTIVIT W/MINERALS 1 TAB TABLET GT SCH (09:18)
[2019-01-16] MEDS: FERROUS SULFATE UDC 300 MG/5 ML UDC GT SCH (09:18)
[2019-01-16] MEDS: PANTOPRAZOLE 40 MG/PACK PACK GT SCH (09:18)
[2019-01-16] MEDS: JEVITY 1.2 CAL 1,000 ML BOTTLE GT PRN (11:54)
--- NOTE | 2019-01-16 13:08 | NUR ---
ICU/RELIEF WORKER OF CARE NO ACUTE CHANGE OF CONDITION NOTED SINCE CARED FOR PT IN THE BEGINNING OF SHIFT. PT ENDORSED TO ICU NURSE CYNTHIA TO CONTINUE CARE.
--- NOTE | 2019-01-16 15:00 | NUR ---
PREPPER CARE TRANSFER NOTE RECEIVED REPORT FROM ERMA LUA FOR AMEYA. PT IN BED, A/O X 2-3, ABLE TO VERBALIZED NEEDS, DENIES ANY PAIN. ON ROOM AIR, SATURATING WELL . RESPIRATIONS EVEN AND UNLABORED, LUNG SOUNDS CLEAR. ON TELE MONITOR SINUS LONG, HR 58. PT ON LEVOPHED @ 5MCG./MIN., AND KCL 20MEQ IN NS @ 100CC/HR. PICC LINE PATENT WITH NO S/S OF INFECTION. GT FEEDING ON GOING @ 60CC/HR, PATENT. KIRKLAND CATHETER INTACT WITH YELLOW URINE OUTPUT.SAFETY,ASPIRATION AND ISOLATION PRECAUTIONS IN PLACE.BED ALARM ON .WILL CONTINUE TO MONITOR.
[2019-01-16] MEDS: NOREPINEPHRINE 8 MG in IV D5W 500 ML IV PRN (15:47)
--- NOTE | 2019-01-16 19:19 | NUR ---
DESK ATTENDANT CLOSING NOTE PT IN BED, A/O X 2-3, ABLE TO VERBALIZED NEEDS, DENIES ANY PAIN. ON ROOM AIR, SATURATING WELL . RESPIRATIONS EVEN AND UNLABORED, LUNG SOUNDS CLEAR. ON TELE MONITOR SINUS LONG, HR 56. PT ON LEVOPHED @ 5MCG./MIN., AND KCL 20MEQ IN NS @ 100CC/HR. PICC LINE PATENT WITH NO S/S OF INFECTION. GT FEEDING ON GOING @ 60CC/HR, PATENT. KIRKLAND CATHETER INTACT WITH YELLOW URINE OUTPUT.SAFETY,ASPIRATION AND ISOLATION PRECAUTIONS IN PLACE.BED ALARM ON .ENDORSED TO PM NURSE FOR AMEYA.
[2019-01-16] MEDS: ENOXAPARIN SODIUM 30 MG/0.3 ML DISP.SYRIN SQ SCH (20:15)
[2019-01-16] MEDS: SENNOSIDES 8.6 MG TABLET GT SCH (21:16)
[2019-01-17] VITALS (89 sets, daily range): BP systolic 77–133; BP diastolic 40–77
[2019-01-17] MEDS: MEROPENEM 500 MG in IV NS 0.9% 50 ML IV SCH ×3 (05:59→21:26)
--- NOTE | 2019-01-17 08:01 | NUR ---
ICU/RN INITIAL NOTES,AM RECEIVED REPORT FROM NIGHT NURSE. PT RESTING IN BED COMFORTABLY. PT ON ROOM AIR, NO DISTRESS NOTED. SINUS ON TELE. ALERT, AWAKE, FOLLOWS COMMANDS. KIRKLAND CATH IN PLACE, DRAINING URINE. PEG TUBE IN PLACE, TUBE FEEDING INFUSING, TOLERATING WELL. SKIN INTACT. PT TURNED AND REPOSITIONED Q 2 HOURS AND NEEDED. LEFT UPPER ARM PICC LINE PATENT AND INTACT, LEVO INFUSING FOR BP SUPPORT PER PROTOCOL, IV FLUIDS INFUSING. ALL NEEDS WILL BE ATTENDED TO, SAFETY MEASURES TAKEN, BED IN LOW POSITION, SIDE RAILS UP, CALL LIGHT WITHIN REACH.
[2019-01-17] MEDS: FERROUS SULFATE UDC 300 MG/5 ML UDC GT SCH (08:44)
[2019-01-17] MEDS: PROSOURCE / PROSTAT (PYXIS) 30 ML UDC GT SCH ×2 (08:44→17:08)
[2019-01-17] MEDS: ASCORBIC ACID 500 MG TABLET GT SCH (08:44)
[2019-01-17] MEDS: PANTOPRAZOLE 40 MG/PACK PACK GT SCH (08:44)
[2019-01-17] MEDS: MULTIVIT W/MINERALS 1 TAB TABLET GT SCH (08:44)
[2019-01-17] MEDS: JEVITY 1.2 CAL 1,000 ML BOTTLE GT PRN (08:50)
[2019-01-17] MEDS: MIDODRINE HCL (5MG) 5 MG TABLET PO SCH ×2 (16:03→17:10)
[2019-01-17] MEDS: NOREPINEPHRINE 8 MG in IV D5W 500 ML IV PRN (17:08)
--- NOTE | 2019-01-17 18:47 | NUR ---
ICU/RN ENDING NOTES,AM REPORT WILL BE ENDORSED TO NIGHT NURSE FOR CONTINUATION OF CARE. ALL NEEDS ATTENDED TO. PT ON ROOM AIR, NO ACUTE DISTRESS NOTED. SINUS ON TELE. LOW DOSE LEVO INFUSING PER PROTOCOL. PIV PATENT AND INTACT, NO S/S OF INFECTION OR INFILTRATION NOTED. GTUBE FEEDING INFUSING ORDERED, TOLERATING WELL, NO RESIDUAL NOTED. BED BATH GIVEN, PT TURNED AND REPOSITIONED. WILL CONTINUE CARE.
--- NOTE | 2019-01-17 20:00 | NUR ---
INSURANCE ADMINISTRATOR - NOTES - RECEIVED PT IN BED RESTING IN BED COMFORTABLY. PT ON ROOM AIR, NO DISTRESS NOTED. SINUS ON TELE. ALERT, AWAKE, FOLLOWS COMMANDS. KIRKLAND CATH IN PLACE, DRAINING URINE. PEG TUBE IN PLACE, TUBE FEEDING INFUSING, TOLERATING WELL. SKIN INTACT. PT TURNED AND REPOSITIONED Q 2 HOURS AND NEEDED. LEFT UPPER ARM PICC LINE PATENT AND INTACT, LEVO INFUSING FOR BP SUPPORT PER PROTOCOL, IV FLUIDS INFUSING. ALL NEEDS WILL BE ATTENDED TO, SAFETY MEASURES TAKEN, BED IN LOW POSITION, SIDE RAILS UP, CALL LIGHT WITHIN REACH.
[2019-01-17] MEDS: ENOXAPARIN SODIUM 30 MG/0.3 ML DISP.SYRIN SQ SCH (21:23)
[2019-01-17] MEDS: SENNOSIDES 8.6 MG TABLET GT SCH (21:23)
[2019-01-18] VITALS (82 sets, daily range): BP systolic 65–126; BP diastolic 33–74
--- NOTE | 2019-01-18 | NUR ---
LEVO STOPPED, BP WNL, WILL CONTINUE TO MONITOR
--- NOTE | 2019-01-18 02:00 | NUR ---
LEVO RESTARTED @ 1 MCG, BP CONTINUOUSLY IN THE 70S AND 80S. WILL CONTINUE TO MONITOR
[2019-01-18 04:52] LABS: BASOPHILS # (AUTO) 0.1 /CMM (0.0-0.2); BASOPHILS % (AUTO) 0.8 % (0.0-2.0); EOSINOPHILS % (AUTO) 5.8 % (0.0-6.0); HEMATOCRIT 29 % (39-51); LYMPHOCYTES # (AUTO) 3.7 /CMM (0.8-4.8); LYMPHOCYTES % (AUTO) 56.7 % (20.0-44.0); MEAN CORPUSCULAR HGB CONC 34 g/dl (31.0-36.0); MEAN CORPUSCULAR VOLUME 95 fL (80-96); MONOCYTES # (AUTO) 0.3 /CMM (0.1-1.30); MONOCYTES % (AUTO) 5.2 % (2.0-12.0); NEUTROPHILS # (AUTO) 2.1 /CMM (1.8-8.9); NEUTROPHILS % (AUTO) 31.5 % (43.0-81.0); PLATELET COUNT (AUTO) 386 /CMM (150-450); RED BLOOD CELL COUNT(AUTO) 3.09 MIL/uL (4.5-6.0); WHITE BLOOD COUNT (AUTO) 6.6 K/uL (4.3-11.0)
[2019-01-18] MEDS: JEVITY 1.2 CAL 1,000 ML BOTTLE GT PRN (04:52)
[2019-01-18] MEDS: MEROPENEM 500 MG in IV NS 0.9% 50 ML IV SCH (04:53)
[2019-01-18 05:01] LABS: CALCIUM, SERUM 8.9 mg/dL (8.5-10.1); CREATININE 0.8 mg/dL (0.6-1.3); POTASSIUM 4.2 mmol/L (3.5-5.1)
[2019-01-18] MEDS: PANTOPRAZOLE 40 MG/PACK PACK GT SCH (08:10)
[2019-01-18] MEDS: FERROUS SULFATE UDC 300 MG/5 ML UDC GT SCH (08:11)
[2019-01-18] MEDS: MIDODRINE HCL (5MG) 5 MG TABLET PO SCH ×3 (08:11→20:03)
[2019-01-18] MEDS: ASCORBIC ACID 500 MG TABLET GT SCH (08:11)
[2019-01-18] MEDS: MULTIVIT W/MINERALS 1 TAB TABLET GT SCH (08:11)
[2019-01-18] MEDS: PROSOURCE / PROSTAT (PYXIS) 30 ML UDC GT SCH ×2 (08:11→18:22)
--- NOTE | 2019-01-18 08:45 | NUR ---
ICU/RN: Markell, GRAVEL SCREENER at bedside. Updated on pt status. Midodrine dose adjusted by GRAVEL SCREENER, noted and carried out.
--- NOTE | 2019-01-18 11:00 | NUR ---
ICU/RN: Pt comfortable in bed, no distress. Watching TV. Levophed titrated off.
[2019-01-18] MEDS ORDERED: MIDODRINE HCL (5MG) 5 MG TABLET PO SCH (13:00)
--- NOTE | 2019-01-18 16:00 | NUR ---
ICU/RN: Noted with soft green BM. Hygienic care rendered. No distress.
--- NOTE | 2019-01-18 18:30 | NUR ---
ICU/RN: Pt off levophed since 1100, however noted with drop in systolic BP in 60-70's. Verified BP twice, levophed restarted as ordered.
--- NOTE | 2019-01-18 20:00 | NUR ---
CALENDER RUNNER - NOTES - RECEIVED PT IN BED RESTING IN BED COMFORTABLY. PT ON ROOM AIR, NO DISTRESS NOTED. SINUS ON TELE. ALERT, AWAKE, FOLLOWS COMMANDS. KIRKLAND CATH IN PLACE, DRAINING URINE. PEG TUBE IN PLACE, TUBE FEEDING INFUSING, TOLERATING WELL. SKIN INTACT. PT TURNED AND REPOSITIONED Q 2 HOURS AND NEEDED. LEFT UPPER ARM PICC LINE PATENT AND INTACT, LEVO INFUSING FOR BP SUPPORT PER PROTOCOL, IV FLUIDS 1/2 NS WITH 20 MEQ KCL @ 100 ML/HR INFUSING. ALL NEEDS WILL BE ATTENDED TO, SAFETY MEASURES TAKEN, BED IN LOW POSITION, SIDE RAILS UP, CALL LIGHT WITHIN REACH.
[2019-01-18] MEDS: ENOXAPARIN SODIUM 30 MG/0.3 ML DISP.SYRIN SQ SCH (20:04)
[2019-01-18] MEDS: SENNOSIDES 8.6 MG TABLET GT SCH (21:14)
[2019-01-19] VITALS (65 sets, daily range): BP systolic 74–123; BP diastolic 31–75
[2019-01-19] MEDS: JEVITY 1.2 CAL 1,000 ML BOTTLE GT PRN ×2 (00:39→16:04)
[2019-01-19] MEDS: NOREPINEPHRINE 8 MG in IV D5W 500 ML IV PRN (03:21)
[2019-01-19] MEDS: MIDODRINE HCL (5MG) 5 MG TABLET PO SCH ×3 (04:19→20:51)
[2019-01-19 04:55] LABS: BASOPHILS % (AUTO) 0.7 % (0.0-2.0); HEMATOCRIT 30 % (39-51); LYMPHOCYTES # (AUTO) 3.4 /CMM (0.8-4.8); LYMPHOCYTES % (AUTO) 52.2 % (20.0-44.0); MEAN CORPUSCULAR HGB CONC 34 g/dl (31.0-36.0); MEAN CORPUSCULAR VOLUME 95 fL (80-96); MONOCYTES # (AUTO) 0.5 /CMM (0.1-1.30); MONOCYTES % (AUTO) 7.7 % (2.0-12.0); NEUTROPHILS # (AUTO) 2.2 /CMM (1.8-8.9); NEUTROPHILS % (AUTO) 34.4 % (43.0-81.0); PLATELET COUNT (AUTO) 386 /CMM (150-450); RED BLOOD CELL COUNT(AUTO) 3.14 MIL/uL (4.5-6.0); WHITE BLOOD COUNT (AUTO) 6.5 K/uL (4.3-11.0)
[2019-01-19 04:56] LABS: CALCIUM, SERUM 8.7 mg/dL (8.5-10.1); CREATININE 0.8 mg/dL (0.6-1.3); MAGNESIUM 1.9 mg/dL (1.8-2.4); PHOSPHORUS 3.3 mg/dL (2.5-4.9)
--- NOTE | 2019-01-19 06:45 | NUR ---
FIRER ELECTRIC LOCOMOTIVE - CLOSING NOTES - REPORT WILL BE ENDORSED TO DAY NURSE FOR CONTINUATION OF CARE. ALL NEEDS ATTENDED TO. PT ON ROOM AIR, NO ACUTE DISTRESS NOTED. SINUS ON TELE. LOW DOSE LEVO INFUSING PER PROTOCOL. PIV PATENT AND INTACT, NO S/S OF INFECTION OR INFILTRATION NOTED. GTUBE FEEDING INFUSING ORDERED, TOLERATING WELL, NO RESIDUAL NOTED. BED BATH GIVEN, PT TURNED AND REPOSITIONED. WILL CONTINUE CARE.
--- NOTE | 2019-01-19 07:15 | NUR ---
ICU/RN: Pt received in bed, no distress, breathing and even on RA, tolerating TF with no residual. Pt demonstrates to turn and reposition voluntarily. IVF infusing well. Will cont to monitor pt.
[2019-01-19] MEDS: FERROUS SULFATE UDC 300 MG/5 ML UDC GT SCH (08:43)
[2019-01-19] MEDS: Z GUARD REMEDY 2 OZ OINT TP PRN (08:44)
[2019-01-19] MEDS: MULTIVIT W/MINERALS 1 TAB TABLET GT SCH (08:44)
[2019-01-19] MEDS: PROSOURCE / PROSTAT (PYXIS) 30 ML UDC GT SCH ×2 (08:44→16:04)
[2019-01-19] MEDS: PANTOPRAZOLE 40 MG/PACK PACK GT SCH (08:44)
[2019-01-19] MEDS: ASCORBIC ACID 500 MG TABLET GT SCH (08:44)
--- NOTE | 2019-01-19 10:00 | NUR ---
ICU/RN: Levophed turned off; Ramesh Guillaume, METAL TANK ERECTOR at bedside; updated on pt status.
[2019-01-19] MEDS ORDERED: NOREPINEPHRINE 8 MG in IV D5W 500 ML IV PRN (13:00)
--- NOTE | 2019-01-19 15:00 | NUR ---
ICU/RN: Ronel sanchez bm noted; hygienic care rendered. Tolerated well. Remains off levophed drip.
--- NOTE | 2019-01-19 19:00 | NUR ---
RECEIVED PATIENT IN NO ACUTE DISTRESS IN BED. PATIENT IS A/O X 1-2. PATIENT IS ON RA AND TOLERATING WELL. PATIENT HAS GTUBE THAT IS CLEAN DRY INTACT AND PATENT WITH FREE WATER FLUSH. PATIENT NOT C/O ANY SOB, DIFFICULTY BREATHING OR PAIN AT THIS TIME. PATIENT HAS KIRKLAND CATHETER THAT IS CLEAN DRY AND INTACT WITH YELLOW URINE DRAINING. PATIENT IS ON TELE WITH SINUS RHYTHM ON THE MONITOR WITH PERIODS OF SINUS LONG WHEN SLEEPING. PATIENT HAS NIKOS PICC THAT IS CLEAN DRY INTACT AND PATENT WITH 1/2 NORMAL SALINE + 20MEQ POTASSIUM CHLORIDE @ 100ML/HR. BED IN LOW LOCK POSITION WITH RAILS UP X 2. CALL LIGHT WITHIN REACH AND ALL SAFETY MEASURES ENSURED AND CARRIED OUT. WILL CONTINUE TO MONITOR PATIENT.
[2019-01-19] MEDS: ENOXAPARIN SODIUM 30 MG/0.3 ML DISP.SYRIN SQ SCH (20:51)
[2019-01-19] MEDS: SENNOSIDES 8.6 MG TABLET GT SCH (22:53)
[2019-01-20] VITALS (46 sets, daily range): BP systolic 81–132; BP diastolic 42–67
[2019-01-20] MEDS: MIDODRINE HCL (5MG) 5 MG TABLET PO SCH ×2 (05:10→13:28)
--- NOTE | 2019-01-20 06:47 | NUR ---
PATIENT REMAINS IN NO ACUTE DISTRESS IN BED. PT DID NOT HAVE ANY SIGNIFICANT CHANGE IN CONDITION DURING SHIFT. ALL NEEDS MET, ALL ORDERS CARRIED OUT. WILL ENDORSE CARE TO AM RN FOR CONTINUITY OF CARE.
--- NOTE | 2019-01-20 08:00 | NUR ---
ICU/RN INITIAL NOTES,AM RECEIVED REPORT FROM NIGHT NURSE. PT RESTING IN BED COMFORTABLY. PT ON ROOM AIR, NO DISTRESS NOTED. SINUS ON TELE. AWAKE, FOLLOWS COMMANDS. KIRKLAND CATH IN PLACE, DRAINING URINE. PEG TUBE IN PLACE, TUBE FEEDING INFUSING, TOLERATING WELL. SKIN INTACT. PT TURNED AND REPOSITIONED Q 2 HOURS AND NEEDED. LEFT UPPER ARM PICC LINE PATENT AND INTACT, IV FLUIDS INFUSING. ALL NEEDS WILL BE ATTENDED TO, SAFETY MEASURES TAKEN, BED IN LOW POSITION, SIDE RAILS UP, CALL LIGHT WITHIN REACH.
[2019-01-20] MEDS: FERROUS SULFATE UDC 300 MG/5 ML UDC GT SCH (09:14)
[2019-01-20] MEDS: MULTIVIT W/MINERALS 1 TAB TABLET GT SCH (09:15)
[2019-01-20] MEDS: PANTOPRAZOLE 40 MG/PACK PACK GT SCH (09:15)
[2019-01-20] MEDS: PROSOURCE / PROSTAT (PYXIS) 30 ML UDC GT SCH ×2 (09:15→17:05)
[2019-01-20] MEDS: ASCORBIC ACID 500 MG TABLET GT SCH (09:15)
[2019-01-20] MEDS: JEVITY 1.2 CAL 1,000 ML BOTTLE GT PRN (10:26)
--- NOTE | 2019-01-20 15:30 | NUR ---
ICU/RN: REPORT ENDORSED TO CHANELL ADAMS IN 3W. PT WILL BE TRANSFERRED TO [facility].
--- NOTE | 2019-01-20 15:45 | NUR ---
ICU/RN: PT TRANSFERRED TO ROOM 321-1 WITH ACLS GUIDELINES. PT ON ROOM AIR, NO DISTRESS NOTED. VSS. ALL BELONGINGS AND MEDICATIONS SENT WITH PT. ALL NEEDS ATTENDED TO, BED BATH GIVEN, LINENS CHANGED.
--- NOTE | 2019-01-20 16:30 | NUR ---
AUTOMOBILE DETAILER NOTES RECEIVED PT FROM ICU, ARRIVED AT 1600 TO ROOM 321-1. REPORT GIVEN BY HAROON LUA. TRANSPORTED PT VIA BED. PT AWAKE, A/O X1. TOLERATING RA, WITH NO ACUTE RESPIRATORY DISTRESS NOTED. PT DENIES PAIN OR ANY DISCOMFORT REPORTED AT THIS TIME. IVF 1/2 NS WITH KCL TO NIKOS PICC LINE, INTACT AND FLUID INFUSING WELL. PT ON TELEMONITORING SB FROM 50S-60S PER TRIM MASTER OPERATOR DENTAL SERVICE CHIEF/AP AWARE OF IT; AT THIS MOMENT PT SB WITH HR OF 59. PT ON GT FEEDING JEVITY 1.2 AT 60ML/HR, FEEDING INFUSING WELL. WITH 0ML RESIDUAL. PT HAS FC WITH CLEAR YELLOW URINE IN THE BAG. PT KEPT COMFORTABLE, CLEAN AND DRY. CALL LIGHT KEPT WITHIN REACH. PT'S BED IN LOWEST, LOCKED POSITION WITH SR X3. WILL CONTINUE PLAN OF CARE.
[2019-01-20] MEDS ORDERED: Midodrine Hcl (5MG) PO (17:14)
--- NOTE | 2019-01-20 19:17 | NUR ---
DROP CLIPPERENGINE LATHE SET UP OPERATOR TOOL NOTES PT TO DISCHARGE BACK TO [facility]. REPORT GIVEN TO CARLOS LUA. TRANSPORTED PT VIA GURNEY IN AN AMBULANCE WITH 2 RESERVATIONS CLERK. PT AWAKE, A/O X1. VITALS STABLE. REMOVED TELEMONITORING WITH SR 64. PT TOLERATING RA, WITH NO ACUTE RESPIRATORY DISTRESS NOTED. PT DENIES ANY PAIN OR DISCOMFORT AT THE TIME OF DISCHARGE. PT'S SKIN INTACT. PT STATED NO TO PICTURES. POLICY EXPLAINED, PT SAID "NO". PICC LINE TO NIKOS REMOVED, PRESSURE DRESSING APPLIED. TIP OF PICC LINE INTACT AND WITNESSED BY ANOTHER RN/RON. ALL NEEDS AND CARE ATTENDED. DISCHARGE PAPERS AND INVENTORY LIST COSIGNED WITH ANOTHER RN. PT LEFT THE UNIT AT 1915. CN/KRISTING AND BOOK CUTTER/AP AWARE OF DISCHARGE.
== END 2019-01-20 19:10 | DRG 720 ==
LOC: ER 12:56 → ICU 17:07 → TELE 01-20 15:50
PROVIDERS: ADMIT Nurse Practitioner Acute Care; ATTEND Hospitalist
DX: A41.9 Sepsis, unspecified organism (principal); N17.0 Acute kidney failure with tubular necrosis; R65.21 Severe sepsis with septic shock; E43 Unspecified severe protein-calorie malnutrition; G93.41 Metabolic encephalopathy; R64 Cachexia; D69.6 Thrombocytopenia, unspecified; E87.0 Hyperosmolality and hypernatremia; E86.0 Dehydration; I13.10 Hypertensive heart and chronic kidney disease without heart failure, with stage 1 through stage 4 chronic kidney disease, or unspecified chronic kidney disease; N39.0 Urinary tract infection, site not specified; N18.9 Chronic kidney disease, unspecified; Z87.440 Personal history of urinary (tract) infections; R62.7 Adult failure to thrive; Z79.899 Other long term (current) drug therapy; B96.20 Unspecified Escherichia coli [E. coli] as the cause of diseases classified elsewhere; E87.6 Hypokalemia; F20.0 Paranoid schizophrenia; F32.9 Major depressive disorder, single episode, unspecified; F29 Unspecified psychosis not due to a substance or known physiological condition; Z93.1 Gastrostomy status; Z68.1 Body mass index [BMI] 19.9 or less, adult; K58.9 Irritable bowel syndrome, unspecified; J98.11 Atelectasis
CPT/HCPCS: 36415; 36569; 71045-TC; 80048-TC; 80053-TC; 80061-TC; 80076-TC; 80305; 81000-TC; 82533; 82962-TC; 83605-TC; 83735-TC; 83880; 84100-TC; 84484-TC; 85025-TC; 85730-TC; 87040-TC; 87081-TC; 87086-TC; 87186-TC; A4216; C1751; C1769; G0378; J1650; J1815; J2185; J2543; J3370; J3475; J3480; J3490; J7030; J7040; J7050; J7060; J7070

== ENCOUNTER 2019-06-07 13:36 | Inpatient (IN) | payer MEDICAID ==
[~2019-06-07] VITALS: Ht 172.7 cm; Wt 61.2 kg
[~2019-06-07 13:36] MED LIST changes: -LUBI24CA5 PO; -MIRT15TA PO; +Midodrine Hcl (5MG) PO; -OLAN2.5T3 PO
--- NOTE | 2019-06-07 14:11 | NUR ---
CALLED CIERRA AT [facility] FOR THE PREVIOUS GT-SITE. PER RN SHE WILL CALL BACK.
--- NOTE | 2019-06-07 14:21 | NUR ---
CIERRA CALLED BACK, GTUBE SIZE [facility] 16
[2019-06-07] MEDS ORDERED: IV NS 0.9% 500 ML BAG IV ONE (14:30)
--- NOTE | 2019-06-07 14:30 | NUR ---
JOSEPHINE FROM [facility] C/O G TUBE REINSERTION. PER REPORT UNABLE TO PUT IT BACK, PMD AWARE. PATIENT A/OX1, BREATHING EVEN AND UNLABORED, NO SOB NOTED, GT STOMA APPEARS TO BE CLOSE, DR. COMBS ATTEMPTED TO REINSERT A GTUBE FR16 BUT UNSUCCESSFUL.
[2019-06-07 14:43] LABS: BASOPHILS # (AUTO) 0.1 /CMM (0.0-0.2); BASOPHILS % (AUTO) 0.7 % (0.0-2.0); EOSINOPHILS % (AUTO) 5.4 % (0.0-6.0); HEMATOCRIT 29 % (39-51); HEMOGLOBIN 9.4 g/dL (13.5-17.5); LYMPHOCYTES # (AUTO) 2.9 /CMM (0.8-4.8); LYMPHOCYTES % (AUTO) 25.4 % (20.0-44.0); MEAN CORPUSCULAR HGB CONC 33 g/dl (31.0-36.0); MEAN CORPUSCULAR VOLUME 90 fL (80-96); MONOCYTES % (AUTO) 8.7 % (2.0-12.0); NEUTROPHILS # (AUTO) 6.8 /CMM (1.8-8.9); NEUTROPHILS % (AUTO) 59.8 % (43.0-81.0); PLATELET COUNT (AUTO) 400 /CMM (150-450); WHITE BLOOD COUNT (AUTO) 11.4 K/uL (4.3-11.0)
[2019-06-07] MEDS ORDERED: MIDO10TA GT (14:45)
[2019-06-07] MEDS ORDERED: NUT.237L25 GT (14:45)
[2019-06-07] MEDS ORDERED: DOCU50LI GT (14:45)
[2019-06-07] MEDS ORDERED: FAMO20TA8 GT (14:45)
[2019-06-07 15:06] LABS: CALCIUM, SERUM 9.8 mg/dL (8.5-10.1); CARBON DIOXIDE 27 mmol/L (21-32); CHLORIDE 93 mmol/L (98-107); CREATININE 2.4 mg/dL (0.6-1.3); GLUCOSE 91 mg/dL (74-106); POTASSIUM 4.8 mmol/L (3.5-5.1); SODIUM SERUM 126 mmol/L (136-145); UREA NITROGEN, BLOOD 74 mg/dL (7-18)
[2019-06-07 15:10] LABS: ALANINE AMINOTRANSFERASE 90 U/L (12-78); ALBUMIN 2.5 g/dL (3.4-5.0); ALKALINE PHOSPHATASE 145 U/L (46-116); ASPARTATE AMINOTRANSFERASE 93 U/L (15-37); BILIRUBIN,DIRECT 0.1 mg/dL (0.0-0.2); BILIRUBIN,TOTAL 0.3 mg/dL (0.2-1.0); TOTAL PROTEIN, SERUM 10.5 g/dL (6.4-8.2)
[2019-06-07 15:29] LABS: PROTEIN,URINE 1+ mg/dl (NEGATIVE); UGLUCOSE NEGATIVE (NEGATIVE)
[2019-06-07 15:30] LABS: BILIRUBIN,URINE NEGATIVE (NEGATIVE); BLOOD, URINE 1+ Ery/uL (NEGATIVE); KETONES,URINE NEGATIVE (NEGATIVE); LEUKOCYTE ESTERASE ,URINE 3+ (NEGATIVE); NITRITE, URINE NEGATIVE (NEGATIVE); UROBILINOGEN,URINE 0.2 EU/dL (0.2)
[2019-06-07] MEDS ORDERED: IV NS 0.9% 500 ML IV ONE (15:30)
[2019-06-07 15:31] LABS: APPEARANCE,URINE TURBID (CLEAR); COLOR,URINE YELLOW (YELLOW)
--- NOTE | 2019-06-07 15:44 | NUR ---
SAMMY WOODWARD FOR ADMISSION
[2019-06-07 15:52] LABS: WBC,URINE 21-50 /HPF (0-3)
[2019-06-07 15:53] LABS: BACTERIA,URINE Moderate /HPF (None Seen); SQUAMOUS EPITHELIAL CELL,UR Moderate /HPF (None Seen); URINE AMORPHOUS URATE Many /HPF (None Seen)
--- NOTE | 2019-06-07 16:39 | NUR ---
REPORT GIVEN TO LINDSAY, PATIENT GOING TO ROOM 111-1
--- NOTE | 2019-06-07 17:09 | NUR ---
Patient transferred to room 111-2, in stable condition. No distress noted.
--- NOTE | 2019-06-07 17:30 | NUR ---
RN MS NOTES PATIENT IS A/O X1 PATIENT IS CONFUSED BUT FOLLOWS COMMANDS PATIENT IS IN ROOM AIR. NO SOB, NO ACUTE RESPIRATORY DISTRESS. EVEN AND UNLABORED BREATHING. NO PATIENT SKIN IS INTACT. PATIETN G TUBE DISLODGE - SITE CLOSED . PATIENT HAS L WRIST 20 #PATIENT IS INDEPENDENT IN MOVING IN BED . BED LOCKED AND LOWEST POSITION CALL LIGHT WITH IN REACH . ALL SAFETY PRECAUTION IMPLEMENTED PER HOSPITAL POLICY
[2019-06-07] MEDS ORDERED: NA PHOS,M-B/NA PHOS,DI-BA 1 EA ENEMA RC PRN (18:00)
[2019-06-07] MEDS ORDERED: ACETAMINOPHEN 325 MG TABLET PO PRN (18:30)
[2019-06-07] MEDS ORDERED: MAG HYDROX/AL HYDROX/SIMETH 30 ML UDC PO PRN (18:30)
[2019-06-07] MEDS ORDERED: MAGNESIUM HYDROXIDE 30 ML UDC PO PRN (18:30)
[2019-06-07] MEDS ORDERED: Z GUARD REMEDY 2 OZ OINT TP PRN (18:30)
[2019-06-07] MEDS ORDERED: ONDANSETRON HCL/PF 4 MG/2 ML VIAL IVP PRN (18:30)
[2019-06-07] MEDS ORDERED: ZOLPIDEM TARTRATE 5 MG TABLET PO PRN (18:30)
[2019-06-07] MEDS ORDERED: HYDROCODONE/APAP 5/325MG 1 EACH TABLET PO PRN (18:30)
--- NOTE | 2019-06-07 19:00 | NUR ---
RN MS NOTES PATIENT A/O 1 PATIENT CONFUSED BUT FOLLOWS INSTRUCTIONS . NO SOB, NO PAIN , EVEN AND UNLABORED BREATHING . ALL SAFETY PRECAUTIONS IMPLEMENTED PER HOSPITAL POLICY. BED LOCKED AND LOWEST POSITIOIN CALL LIGHT WITH IN REACH.
[2019-06-07] MEDS: IV D5/ 0.9% NACL 1,000 ML IV PRN (19:17)
--- NOTE | 2019-06-07 19:25 | NUR ---
MS/RN NOTES PATIENT IN BED, AWAKE, ALERT AND ORIENTED X1-2, FOLLOW COMMANDS, WITH PERIODS OF CONFUSION, DISORIENTATION. NO S/S OF ACUTE DISTRESS NOTED, BREATHING EVEN AND UNLABORED. NO SOB NOTED. ON ROOM AIR. DENIES ANY PAIN AT THIS TIME. SAFETY MAINTAINED, BED AT THE LOWEST LOCKED POSITION. CALL LIGHT WITHIN REACH. WILL CONTINUE TO MONITOR PER PLAN OF CARE.
[2019-06-07 20:00] VITALS: BP 92/63
[2019-06-07] MEDS ORDERED: CEFTRIAXONE 1 G in IV D5W 50 ML IV SCH (20:00)
[2019-06-08 04:00] VITALS: BP 121/68
[2019-06-08] MEDS: IV D5/ 0.9% NACL 1,000 ML IV PRN ×2 (04:08→13:36)
[2019-06-08 06:56] LABS: BASOPHILS # (AUTO) 0.1 /CMM (0.0-0.2); BASOPHILS % (AUTO) 0.9 % (0.0-2.0); EOSINOPHILS % (AUTO) 7.9 % (0.0-6.0); HEMATOCRIT 27 % (39-51); HEMOGLOBIN 8.8 g/dL (13.5-17.5); LYMPHOCYTES # (AUTO) 2.4 /CMM (0.8-4.8); LYMPHOCYTES % (AUTO) 23.9 % (20.0-44.0); MEAN CORPUSCULAR HGB CONC 33 g/dl (31.0-36.0); MEAN CORPUSCULAR VOLUME 90 fL (80-96); MONOCYTES # (AUTO) 0.9 /CMM (0.1-1.30); MONOCYTES % (AUTO) 8.7 % (2.0-12.0); NEUTROPHILS % (AUTO) 58.6 % (43.0-81.0); PLATELET COUNT (AUTO) 324 /CMM (150-450); WHITE BLOOD COUNT (AUTO) 10.1 K/uL (4.3-11.0)
--- NOTE | 2019-06-08 07:06 | NUR ---
MS/RN EXIT NOTES PATIENT REMAINED IN BED, AWAKE, WATCHING TV, ALERT AND ORIENTED X1-2, FOLLOW COMMANDS, WITH PERIODS OF CONFUSION, DISORIENTATION. NO S/S OF ACUTE DISTRESS NOTED, BREATHING EVEN AND UNLABORED. NO SOB NOTED. ON ROOM AIR. DENIES ANY PAIN AT THIS TIME. IV SITE WITH NO S/S OF INFECTION, INFILTRATION , WITH FLUIDS ORDERED. DUE MEDS GIVEN ORDERED, TOLERATED WELL. SAFETY MAINTAINED, BED AT THE LOWEST LOCKED POSITION. CALL LIGHT WITHIN REACH. NEEDS ATTENDANT. ENDORSE TO AM SHIFT NURSE FOR AMEYA. .
--- NOTE | 2019-06-08 07:23 | NUR ---
MS RN OPENING NOTE RECEIVED REPORT FROM [facility] SHIFT NURSE. PT AWAKE IN BED, ALERT AND ORIENTED X 1, ON ROOM AIR, SATURATING WELL, RESPIRATIONS EVEN AND UNLABORED, NO SIGNS OF RESPIRATORY DISTRESS NOTED. IV SITE ON LEFT HAND G20 INTACT, PATENT, D5 NS INFUSING AT 125CC/HR, NO SIGNS OF INFILTRATION NOTED. BED IN LOW POSITION, LOCKED, CALL LIGHT WITHIN REACH.
[2019-06-08 07:42] LABS: CALCIUM, SERUM 9.4 mg/dL (8.5-10.1); CREATININE 2.1 mg/dL (0.6-1.3); MAGNESIUM 2.5 mg/dL (1.8-2.4); PHOSPHORUS 4.1 mg/dL (2.5-4.9); POTASSIUM 4.3 mmol/L (3.5-5.1)
[2019-06-08 08:00] VITALS: BP 112/67
[2019-06-08] MEDS ORDERED: MEROPENEM 500 MG in IV NS 0.9% 50 ML IV ONE (08:00)
[2019-06-08] MEDS: MEROPENEM 1 G in IV NS 0.9% 100 ML IV SCH (15:27)
[2019-06-08 15:45] LABS: CREATININE, URINE 18.5 MG/DL (30.0-125.0); URINE TOTAL PROTEIN 44.3 mg/dL (0-11.9)
[2019-06-08 15:48] LABS: APPEARANCE,URINE SLIGHTLY CLOUDY (CLEAR); COLOR,URINE YELLOW (YELLOW)
[2019-06-08 15:50] LABS: BILIRUBIN,URINE NEGATIVE (NEGATIVE); BLOOD, URINE 1+ Ery/uL (NEGATIVE); KETONES,URINE NEGATIVE (NEGATIVE); LEUKOCYTE ESTERASE ,URINE 3+ (NEGATIVE); NITRITE, URINE NEGATIVE (NEGATIVE); PROTEIN,URINE TRACE mg/dl (NEGATIVE); UGLUCOSE NEGATIVE (NEGATIVE); UROBILINOGEN,URINE 0.2 EU/dL (0.2)
[2019-06-08 15:52] LABS: BACTERIA,URINE 2+ /HPF (None Seen); SQUAMOUS EPITHELIAL CELL,UR Few /HPF (None Seen); WBC,URINE 81-100 /HPF (0-3)
[2019-06-08 16:00] VITALS: BP 116/74
[2019-06-08] MEDS ORDERED: MEROPENEM 1 G in IV NS 0.9% 100 ML IV SCH (16:00)
[2019-06-08 16:21] LABS: EOSINOPHIL,URINE Few
--- NOTE | 2019-06-08 18:46 | NUR ---
CHANELL MS CLOSING NOTES PATIENT , A/O X1. VERBALLY RESPONSIVE BUT NOT ORIENTED TO PLACE AND TIME. AWAKE IN BED. DENIES ANY PAIN OR DISCOMFORT. RESPIRATION EVEN AND UNLABORED. NO ACUTE DISTRESS NOTED. STILL ON NPO STATUS. IV LINE ON R WRIST 20G,INTACT AND PATENT AND FLUSHED WELL WITH D5 NSS RUNNING @125ML/HR. nO SIGNS OF INFILTRATION NOTED. ON ROOM AIR. ALL DUE MEDS WERE GIVEN AND TOLERATED WELL. WILL ENDORSE TO NOC SHIFT Addendum: 06/08/19 at 1900 by DILAN WATTS RN INFORMED GI FOR CONSULT, STILL WAITING FOR RESPONSE. WILL ENDORSE TO NOC TO FOLLOW UP.
--- NOTE | 2019-06-08 19:25 | NUR ---
MS/RN NOTES PATIENT IN BED, AWAKE, ALERT AND ORIENTED X1-2, FOLLOW COMMANDS, WITH PERIODS OF CONFUSION, DISORIENTATION. NO S/S OF ACUTE DISTRESS NOTED, BREATHING EVEN AND UNLABORED. NO SOB NOTED. ON ROOM AIR, saturating 96%. DENIES ANY PAIN AT THIS TIME. SAFETY MAINTAINED, BED AT THE LOWEST LOCKED POSITION. CALL LIGHT WITHIN REACH. REMAINED NPO, IV SITES PATENT, WITH IV FLUIDS ORDERED, WILL CONTINUE TO MONITOR PER PLAN OF CARE.
[2019-06-08 20:00] VITALS: BP 129/76
[2019-06-08 20:56] VITALS: BP 129/76
[2019-06-09] VITALS: BP 129/76
[2019-06-09] MEDS: IV D5/ 0.9% NACL 1,000 ML IV PRN (00:19)
[2019-06-09 04:00] VITALS: BP 124/74
[2019-06-09] MEDS: MEROPENEM 1 G in IV NS 0.9% 100 ML IV SCH ×2 (04:22→16:11)
--- NOTE | 2019-06-09 07:06 | NUR ---
MS/RN EXIT NOTES PATIENT REMAINED IN BED, AWAKE, ALERT AND ORIENTED TO HIS BASE LINE, FOLLOW COMMANDS, WITH PERIODS OF CONFUSION, DISORIENTATION. NO S/S OF ACUTE DISTRESS NOTED, BREATHING EVEN AND UNLABORED. NO SOB NOTED. ON ROOM AIR. DENIES ANY PAIN AT THIS TIME. IV SITE WITH NO S/S OF INFECTION, INFILTRATION , WITH FLUIDS ORDERED. DUE MEDS GIVEN ORDERED, TOLERATED WELL. SAFETY MAINTAINED, BED AT THE LOWEST LOCKED POSITION. CALL LIGHT WITHIN REACH. NEEDS ATTENDANT. ENDORSE TO AM SHIFT NURSE FOR [facility]EYA. .
--- NOTE | 2019-06-09 07:11 | NUR ---
MS RN OPENING NOTE RECEIVED REPORT FROM [facility] SHIFT NURSE. PT AWAKE IN BED, ALERT AND ORIENTED X 1, ON ROOM AIR, SATURATING WELL, RESPIRATIONS EVEN AND UNLABORED, NO SIGNS OF RESPIRATORY DISTRESS NOTED. IV SITE ON LEFT HAND G20 INTACT, PATENT, D5 NS INFUSING AT 125CC/HR, NO SIGNS OF INFILTRATION NOTED. BED IN LOW POSITION, LOCKED, CALL LIGHT WITHIN REACH. PT CONTINUES TO BE NPO STATUS.
[2019-06-09 08:00] VITALS: BP 120/73
--- NOTE | 2019-06-09 08:44 | NUR ---
USING STERILE TECHNIQUE INSERT KIRKLAND CATHETER, CATHETER INTACT, PATENT, DRAINING CLOUDY YELLOW URINE.
[2019-06-09 09:06] LABS: BASOPHILS % (AUTO) 0.5 % (0.0-2.0); EOSINOPHILS % (AUTO) 2.7 % (0.0-6.0); HEMATOCRIT 27 % (39-51); HEMOGLOBIN 8.8 g/dL (13.5-17.5); LYMPHOCYTES # (AUTO) 2.3 /CMM (0.8-4.8); MEAN CORPUSCULAR HGB CONC 32 g/dl (31.0-36.0); MEAN CORPUSCULAR VOLUME 90 fL (80-96); MONOCYTES # (AUTO) 1.1 /CMM (0.1-1.30); MONOCYTES % (AUTO) 11.9 % (2.0-12.0); NEUTROPHILS # (AUTO) 5.3 /CMM (1.8-8.9); NEUTROPHILS % (AUTO) 58.9 % (43.0-81.0); PLATELET COUNT (AUTO) 413 /CMM (150-450); RED BLOOD CELL COUNT(AUTO) 3.05 MIL/uL (4.5-6.0)
[2019-06-09 10:25] LABS: ALBUMIN 2.3 g/dL (3.4-5.0); BILIRUBIN,TOTAL 0.5 mg/dL (0.2-1.0); CALCIUM, SERUM 9.7 mg/dL (8.5-10.1); CREATININE 2.1 mg/dL (0.6-1.3); MAGNESIUM 2.3 mg/dL (1.8-2.4); PHOSPHORUS 3.3 mg/dL (2.5-4.9); POTASSIUM 4.2 mmol/L (3.5-5.1); TOTAL PROTEIN, SERUM 9.7 g/dL (6.4-8.2)
[2019-06-09 10:33] LABS: THYROID STIMULATING HORMONE 1.06 uIU/mL (0.358-3.74); URIC ACID 5.9 mg/dL (2.6-7.2)
--- NOTE | 2019-06-09 11:40 | NUR ---
RECEIVED PHONE CALL FROM SURGERY- PT SCHEDULED FOR PEG PLACEMENT TOMORROW AT 07:30AM. PT CONTINUES TO BE NPO. DR. WOODWARD NOTIFIED THAT PT HAS NO FAMILY FOR INFORMED CONSENT, WILL OBTAIN SIGNATURE FROM 2 MD'S FOR PROCEDURE CONSENT, BLOOD TRANSFUSION CONSENT, ANESTHESIA CONSENT, EGD CONSENT.
[2019-06-09] MEDS: IV D5/0.45 NACL 1,000 ML IV PRN (12:42)
[2019-06-09 16:00] VITALS: BP 132/77
--- NOTE | 2019-06-09 18:49 | NUR ---
RN MS CLOSING NOTES PATIENT A/O X 1, VITAL SIGNS WNL. NO SOB NOTED, DENIES ANY PAIN OR DISCOMFORT. IV LINE ON L HAND 20G RUNNING D5 1/2 NS @100ML/HR INTACT, PATENT AND FLUSH WELL. NO SIGNS OF INFILTRATION. KIRKLAND CATH INTACT AND DRAINING WELL WITH OUTPUT OF 2000 ML , CLOUDY OSWALDO WITH SEDIMENTS.NPO, FOR PEG PLACEMENT ON 06/10/19 @730. CONSENT SIGNED, CHECKLIST DONE. BED IN LOW POSITION, LOCKED. CALL LIGHT WITHIN REACH.
--- NOTE | 2019-06-09 19:15 | NUR ---
RN NOTE RECEIVED PT IN BED ALERT AND ORIENTED X 1. RESPIRATIONS EVEN AND UNLABORED WHILE ON ROOM AIR. NO INDICATIONS OF PAIN OR DISCOMFORT. PT CURRENTLY NPO. CURRENTLY ON IVF 55 1/2 NS @ 100ML/HR. BED ALARM ON. BED IN LOWEST POSITION. CALL LIGHT WITHIN REACH. WILL MONITOR PT.
[2019-06-09 20:00] VITALS: BP 140/91
[2019-06-09] MEDS ORDERED: TAMSULOSIN 0.4 MG CAP.SR.24H PO SCH (22:00)
[2019-06-09] MEDS: TAMSULOSIN 0.4 MG CAP.SR.24H PO SCH (22:00)
--- NOTE | 2019-06-09 22:05 | NUR ---
RN NOTE FLOMAX DUE AT 2200 HELD DUE TO NPO STATUS. AWARE.
[2019-06-10] VITALS: BP 133/87
[2019-06-10] MEDS: IV D5/0.45 NACL 1,000 ML IV PRN ×2 (01:44→19:45)
[2019-06-10] MEDS: MEROPENEM 1 G in IV NS 0.9% 100 ML IV SCH ×2 (03:18→15:58)
--- NOTE | 2019-06-10 07:10 | NUR ---
RN CLOSING NOTE PT IN BED IN SEMI MATA'S POSITION. ALERT AND ORIENTED X 1. ON ROOM AIR. RESPIRATIONS EVEN AND UNLABORED. NO SOB NOTED. NO INDICATIONS OF PAIN OR DISCOMFORT. WITH IV ON LEFT UPPER ARM WITH IVF RUNNING WITHOUT COMPLICATIONS. PT IS PENDING GT PLACEMENT TODAY AND CURRENTLY NPO. BED ALARM ON. CALL LIGHT WITHIN REACH. KIRKLAND CATHETER PATENT AND IN PLACE AND DRAINING CLEAR YELLOW URINE. ENDORSED TO MORNING SHIFT.
[2019-06-10] MEDS ORDERED: ANESTHESIA TRAY IN PYXIS 1 EA TRAY MC ONE (07:28)
--- NOTE | 2019-06-10 07:32 | NUR ---
MS RN OPENING NOTE RECEIVED REPORT FROM [facility] SHIFT NURSE. PT AWAKE IN BED, ALERT AND ORIENTED X 1, ON ROOM AIR, SATURATING WELL, RESPIRATIONS EVEN AND UNLABORED, NO SIGNS OF RESPIRATORY DISTRESS NOTED. KIRKLAND CATH INTACT, PATENT, DRAINING OSWALDO URINE WITH SEDIMENT. IV SITE ON LEFT FOREARM G22 INTACT, PATENT, D5 1/2 NS INFUSING AT 100CC/HR, NO SIGNS OF INFILTRATION NOTED. BED IN LOW POSITION, LOCKED, CALL LIGHT WITHIN REACH.
--- NOTE | 2019-06-10 07:40 | NUR ---
TAKEN TO OR IN STABLE CONDITION
[2019-06-10 07:52] LABS: BASOPHILS # (AUTO) 0.1 /CMM (0.0-0.2); BASOPHILS % (AUTO) 0.8 % (0.0-2.0); EOSINOPHILS % (AUTO) 2.1 % (0.0-6.0); HEMATOCRIT 29 % (39-51); HEMOGLOBIN 9.6 g/dL (13.5-17.5); LYMPHOCYTES # (AUTO) 2.7 /CMM (0.8-4.8); LYMPHOCYTES % (AUTO) 32.5 % (20.0-44.0); MEAN CORPUSCULAR HGB CONC 33 g/dl (31.0-36.0); MEAN CORPUSCULAR VOLUME 90 fL (80-96); MONOCYTES # (AUTO) 1.1 /CMM (0.1-1.30); MONOCYTES % (AUTO) 13.2 % (2.0-12.0); NEUTROPHILS # (AUTO) 4.3 /CMM (1.8-8.9); NEUTROPHILS % (AUTO) 51.4 % (43.0-81.0); PLATELET COUNT (AUTO) 397 /CMM (150-450); RED BLOOD CELL COUNT(AUTO) 3.22 MIL/uL (4.5-6.0); WHITE BLOOD COUNT (AUTO) 8.3 K/uL (4.3-11.0)
[2019-06-10 08:00] VITALS: BP 130/75
[2019-06-10 08:02] LABS: CALCIUM, SERUM 9.7 mg/dL (8.5-10.1); POTASSIUM 4.1 mmol/L (3.5-5.1)
[2019-06-10 08:45] VITALS: BP 144/81
--- NOTE | 2019-06-10 08:45 | NUR ---
PT RETURNED TO UNIT IN STABLE CONDITION. G-TUBE PLACED. VITALS UPON RETURNIN/81 MMHG, 02 SAT 98%, RR 18, TEMP 98.8, HR 106.
[2019-06-10] MEDS ORDERED: JEVITY 1.2 CAL 1,000 ML BOTTLE GT SCH (09:00)
[2019-06-10] MEDS: JEVITY 1.2 CAL 1,000 ML BOTTLE GT PRN (09:27)
[2019-06-10 16:00] VITALS: BP 131/69
[2019-06-10] MEDS: PROSOURCE / PROSTAT (PYXIS) 30 ML UDC GT SCH (16:04)
--- NOTE | 2019-06-10 16:30 | NUR ---
INCREASED JEVITY 1.2 FEEDING FROM 20 ML/HR TO 30ML/HR. PT TOLERATING WELL.
[2019-06-10] MEDS: TAMSULOSIN 0.4 MG CAP.SR.24H PO SCH (21:13)
--- NOTE | 2019-06-10 23:03 | NUR ---
MS RN CLOSING NOTE PT ASLEEP IN BED, ON ROOM AIR, SATURATING WELL, RESPIRATIONS EVEN AND UNLABORED, NO SIGNS OF RESPIRATORY DISTRESS NOTED. KIRKLAND CATH INTACT, PATENT, DRAINING OSWALDO URINE WITH SEDIMENT. IV SITE ON LEFT FOREARM G22 INTACT, PATENT, D5 1/2 NS INFUSING AT 100CC/HR, NO SIGNS OF INFILTRATION NOTED. JEVITY INFUSING AT 30CC/HR, PT TOLERATING FEEDING WELL. PROVIDED SAFETY AND COMFORT TO PT THROUGHOUT SHIFT, ALL DUE MEDS GIVEN, TURNED AND REPOSITIONED PT EVERY 2 HOURS AND OFFLOADED EXTREMITIES. BED IN LOW POSITION, LOCKED, CALL LIGHT WITHIN REACH. ENDORSED TO MIHAELA LUA FOR AMEYA.
[2019-06-11] MEDS: IV D5/0.45 NACL 1,000 ML IV PRN ×2 (03:31→20:53)
[2019-06-11] MEDS: MEROPENEM 1 G in IV NS 0.9% 100 ML IV SCH ×2 (03:35→15:51)
[2019-06-11 04:00] VITALS: BP 154/84
[2019-06-11 06:59] LABS: BASOPHILS # (AUTO) 0.1 /CMM (0.0-0.2); BASOPHILS % (AUTO) 0.4 % (0.0-2.0); EOSINOPHILS % (AUTO) 5.5 % (0.0-6.0); HEMATOCRIT 28 % (39-51); HEMOGLOBIN 8.8 g/dL (13.5-17.5); LYMPHOCYTES # (AUTO) 4.9 /CMM (0.8-4.8); LYMPHOCYTES % (AUTO) 40.9 % (20.0-44.0); MEAN CORPUSCULAR HGB CONC 32 g/dl (31.0-36.0); MEAN CORPUSCULAR VOLUME 92 fL (80-96); MONOCYTES # (AUTO) 1.3 /CMM (0.1-1.30); NEUTROPHILS % (AUTO) 42.2 % (43.0-81.0); PLATELET COUNT (AUTO) 379 /CMM (150-450); RED BLOOD CELL COUNT(AUTO) 3.02 MIL/uL (4.5-6.0); WHITE BLOOD COUNT (AUTO) 11.9 K/uL (4.3-11.0)
[2019-06-11 07:36] LABS: CALCIUM, SERUM 9.9 mg/dL (8.5-10.1); CREATININE 1.9 mg/dL (0.6-1.3); MAGNESIUM 1.8 mg/dL (1.8-2.4); POTASSIUM 3.9 mmol/L (3.5-5.1)
--- NOTE | 2019-06-11 07:52 | NUR ---
MS RN NOTES PATIENT IN BED A/OX1-2 ON ROOM AIR. LEFT FOREARM IV NOT PATENT WILL CHANGE THE SITE. NO SOB OR DISTRESS NOTED AT THIS TIME. CALL LIGHT WITHIN REACH BED AT THE LOWEST POSITION LOCKED. WILL CONTINUE TO MONITOR PATIENT.
[2019-06-11 08:00] VITALS: BP 138/85
[2019-06-11] MEDS: PROSOURCE / PROSTAT (PYXIS) 30 ML UDC GT SCH ×2 (08:58→16:21)
[2019-06-11 16:00] VITALS: BP 130/70
--- NOTE | 2019-06-11 17:35 | NUR ---
MS RN NOTES PATIENT IS TOLERATING GTUBE FEEDING WELL. NO RESIDUAL NOTED. INCREASE THE FEEDING FROM 40 ML/H TO 50 ML /HOURS PER MD ORDER.
[2019-06-11 20:00] VITALS: BP 124/75
--- NOTE | 2019-06-11 20:09 | NUR ---
MS RN NOTES PATIENT IN BED A/OX1-2. ALL NEEDS ATTENDED. GTUBE FEEDING INCREASED TO 50 ML/HR . PATIENT TOLERATING WELL NO RESIDUAL NOTED AT THIS TIME. CALL LIGHT WITHIN REACH BED AT THE LOWEST POSITION LOCKED. ENDORSED TO RECREATIONAL LEADER NURSE FOR AMEYA.
[2019-06-11] MEDS: JEVITY 1.2 CAL 1,000 ML BOTTLE GT PRN (20:53)
[2019-06-11] MEDS: TAMSULOSIN 0.4 MG CAP.SR.24H PO SCH (22:25)
[2019-06-12 04:00] VITALS: BP 122/83
[2019-06-12] MEDS: MEROPENEM 1 G in IV NS 0.9% 100 ML IV SCH ×2 (04:58→16:07)
[2019-06-12] MEDS: IV D5/0.45 NACL 1,000 ML IV PRN (06:28)
[2019-06-12 07:16] LABS: BASOPHILS # (AUTO) 0.1 /CMM (0.0-0.2); BASOPHILS % (AUTO) 0.7 % (0.0-2.0); EOSINOPHILS % (AUTO) 10.4 % (0.0-6.0); HEMATOCRIT 26 % (39-51); HEMOGLOBIN 8.6 g/dL (13.5-17.5); LYMPHOCYTES # (AUTO) 3.7 /CMM (0.8-4.8); LYMPHOCYTES % (AUTO) 36.5 % (20.0-44.0); MEAN CORPUSCULAR HGB CONC 33 g/dl (31.0-36.0); MEAN CORPUSCULAR VOLUME 90 fL (80-96); MONOCYTES # (AUTO) 0.9 /CMM (0.1-1.30); MONOCYTES % (AUTO) 8.7 % (2.0-12.0); NEUTROPHILS # (AUTO) 4.5 /CMM (1.8-8.9); NEUTROPHILS % (AUTO) 43.7 % (43.0-81.0); PLATELET COUNT (AUTO) 331 /CMM (150-450); RED BLOOD CELL COUNT(AUTO) 2.88 MIL/uL (4.5-6.0); WHITE BLOOD COUNT (AUTO) 10.3 K/uL (4.3-11.0)
--- NOTE | 2019-06-12 07:23 | NUR ---
MS RN OPENING NOTE RECEIVED REPORT FROM NOC SHIFT NURSE, PT AWAKE IN BED, ALERT AND ORIENTED X 1, ON ROOM AIR, SATURATING WELL, RESPIRATIONS EVEN AND UNLABORED, NO SIGNS OF RESPIRATORY DISTRESS NOTED. JEVITY 1.2 INFUSING AT 60CC/HR, PT TOLERATING FEEDING WELL. IV SITE ON RIGHT HAND G22 PATENT, INTACT, D5 1/2 NS INFUSING AT 100CC/HR, NO SIGNS OF INFILTRATION NOTED. BED IN LOW POSITION, LOCKED, CALL LIGHT WITHIN REACH.
[2019-06-12 07:28] LABS: CALCIUM, SERUM 8.8 mg/dL (8.5-10.1); CREATININE 1.7 mg/dL (0.6-1.3); POTASSIUM 3.5 mmol/L (3.5-5.1)
[2019-06-12 07:34] LABS: ALBUMIN 2.1 g/dL (3.4-5.0); BILIRUBIN,TOTAL 0.3 mg/dL (0.2-1.0); MAGNESIUM 1.7 mg/dL (1.8-2.4); PHOSPHORUS 2.4 mg/dL (2.5-4.9); TOTAL PROTEIN, SERUM 8.9 g/dL (6.4-8.2)
[2019-06-12 08:00] VITALS: BP 97/59
[2019-06-12] MEDS: PROSOURCE / PROSTAT (PYXIS) 30 ML UDC GT SCH ×2 (08:01→17:16)
[2019-06-12] MEDS ORDERED: NEUTRA PHOS 1 POWD.PACKET NG ONE (11:00)
[2019-06-12] MEDS ORDERED: Magnesium 1GM/D5W 100ML PREMIX 100 ML IV SCH (11:00)
[2019-06-12 14:11] LABS: CALCIUM, SERUM 8.7 mg/dL (8.5-10.1); CREATININE 1.6 mg/dL (0.6-1.3); POTASSIUM 3.6 mmol/L (3.5-5.1)
[2019-06-12] MEDS: JEVITY 1.2 CAL 1,000 ML BOTTLE GT PRN (14:57)
[2019-06-12 16:00] VITALS: BP 110/71
[2019-06-12 16:11] LABS: *SPE A/G RATIO 0.4 (0.7-1.7); *SPE ALBUMIN 2.3 g/dL (2.9-4.4); *SPE ALPHA-1-GLOBULIN 0.4 g/dL (0.0-0.4); *SPE ALPHA-2-GLOBULIN 1.3 g/dL (0.4-1.0); *SPE BETA GLOBULIN 1.1 g/dL (0.7-1.3); *SPE GLOBULIN, TOTAL 6.5 g/dL (2.2-3.9); *SPE M-SPIKE Not Observed g/dL (Not Observed); *SPEGAMMA GLOBULIN 3.7 g/dL (0.4-1.8)
--- NOTE | 2019-06-12 17:37 | NUR ---
KIRKLAND CATHETER REMOVED
--- NOTE | 2019-06-12 17:41 | NUR ---
CALLED GAVE REPORT TO SALOMON LUA FROM [facility]
[2019-06-12] MEDS ORDERED: MERO1VIA IV (17:50)
[2019-06-12] MEDS ORDERED: TAMS-12 PO (17:50)
--- NOTE | 2019-06-12 18:48 | NUR ---
MS RN CLOSING NOTE PT AWAKE IN BED, ALERT AND ORIENTED X 1, ON ROOM AIR, SATURATING WELL, RESPIRATIONS EVEN AND UNLABORED, NO SIGNS OF RESPIRATORY DISTRESS NOTED. JEVITY 1.2 INFUSING AT 60CC/HR, PT TOLERATING FEEDING WELL. IV SITE ON LEFT UPPER ARM G22 PATENT, INTACT, D5 1/2 NS INFUSING AT 100CC/HR, NO SIGNS OF INFILTRATION NOTED. BED IN LOW POSITION, LOCKED, CALL LIGHT WITHIN REACH. PROVIDED SAFETY AND COMFORT TO PT THROUGHOUT SHIFT, ALL DUE MEDS GIVEN. WAITING FOR AMBULANCE FOR PATIENT RELATIONS COORDINATOR/TRANSPORT. WILL ENDORSE TO NOC SHIFT NURSE.
--- NOTE | 2019-06-12 19:20 | NUR ---
MS RN NOTE PATIENT IN BED A/O X 1 CONFUSED, PATIENT ON ROOM AIR TOLERATING WELL NO S/S OF RESP DISTRESS. PATIENT DENIES CHEST PAIN OR SOB. PATIENT DENIES DISCOMFORT. PATIENT TOLERATING GTUBE FEEDING WELL NO RESIDUAL NOTED. PATIENT IV SITE PATENT AND INTACT. PATIENT WILL KEEP IV LINES FOR D/C PATIENT HAS ORDER TO COMPLETE IV ABX X 2 DAYS. MD AWARE. RN AWARE OF D/C PATIENT PENDING [employer]PER[employer] AT 1999. SAFETY PRECAUTIONS IN PLACE. RN WILL CONTINUE TO MONITOR FOR CHANGES.
[2019-06-12] MEDS: TAMSULOSIN 0.4 MG CAP.SR.24H PO SCH (22:25)
--- NOTE | 2019-06-12 23:30 | NUR ---
MS RN NOTE [facility]. PATIENT VS WNL NO S/S OF DISTRESS. GTUBE FLSUHED. IV FLUSHED. PATIENT SENT HOME WITH 18G TODD IV. AWARE. TRANSFER OF CARE [facility]
[2019-06-13 15:06] LABS: PTH, INTACT 22 pg/mL (15-65)
== END 2019-06-12 23:50 | DRG 252 ==
LOC: ER 13:38 → MEDSG1 16:31
PROVIDERS: ADMIT Internal Medicine; ATTEND Internal Medicine
PROC: 0DH63UZ Insertion of Feeding Device into Stomach, Percutaneous Approach (ICD-10-PCS; principal; 2019-06-10)
DX: K94.23 Gastrostomy malfunction (principal); N17.0 Acute kidney failure with tubular necrosis; E43 Unspecified severe protein-calorie malnutrition; G93.41 Metabolic encephalopathy; R64 Cachexia; R13.10 Dysphagia, unspecified; F03.90 Unspecified dementia, unspecified severity, without behavioral disturbance, psychotic disturbance, mood disturbance, and anxiety; E86.0 Dehydration; E87.1 Hypo-osmolality and hyponatremia; F20.0 Paranoid schizophrenia; N13.6 Pyonephrosis; I12.9 Hypertensive chronic kidney disease with stage 1 through stage 4 chronic kidney disease, or unspecified chronic kidney disease; N39.0 Urinary tract infection, site not specified; N18.9 Chronic kidney disease, unspecified; K29.70 Gastritis, unspecified, without bleeding; D63.8 Anemia in other chronic diseases classified elsewhere; E86.1 Hypovolemia; R62.7 Adult failure to thrive; E88.09 Other disorders of plasma-protein metabolism, not elsewhere classified; M62.50 Muscle wasting and atrophy, not elsewhere classified, unspecified site; Z68.20 Body mass index [BMI] 20.0-20.9, adult; N13.9 Obstructive and reflux uropathy, unspecified; B96.20 Unspecified Escherichia coli [E. coli] as the cause of diseases classified elsewhere; B96.5 Pseudomonas (aeruginosa) (mallei) (pseudomallei) as the cause of diseases classified elsewhere
CPT/HCPCS: 36415; 43246; 71045-TC; 76770-TC; 80048-TC; 80053-TC; 80076-TC; 81000-TC; 82550-TC; 82570-TC; 82728-TC; 83540-TC; 83735-TC; 83935-TC; 83970; 84100-TC; 84155; 84155-TC; 84165; 84300-TC; 84443-TC; 84484-TC; 84550-TC; 85025-TC; 85610-TC; 85730-TC; 87081-TC; 87086-TC; 87186-TC; A4216; G0378; J0696; J2185; J3475; J3490; J7030; J7040; J7042; J7050; J7060; J7070